=== PATIENT | male | born 2000 | race Caucasian/White ===

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

== ENCOUNTER → 2022-01-23 09:09 | Outpatient (BNVA) | payer MEDICAID, SELFPAY | PROVIDERS: Visit Provider Physician Assistant | DX: K58.9 Irritable bowel syndrome, unspecified (principal); R10.9 Unspecified abdominal pain; F32.A Depression, unspecified | CPT/HCPCS: 99212 ==

== ENCOUNTER 2022-03-22 15:50 | Emergency (ER) | payer MEDICAID, SELFPAY ==
--- NOTE | ~2022-03-22 | US_ITS ---
EXAMINATION: US SCROTUM CLINICAL INFORMATION: Left testicular pain. COMPARISON: None TECHNIQUE: A sonogram of the scrotum was performed assessing dawson-scale appearance and color Doppler flow. Spectral Doppler analysis of the arterial and venous flow were performed in the testes bilaterally. FINDINGS: RIGHT: Right testicle measures 4.2 x 2.3 x 2.1 cm, volume 10.4 mL. No focal testicular parenchymal lesions are visualized. Spectral Doppler analysis of the arterial and venous flow is in the right testis. Right epididymal head is normal in size. No right hydrocele or varicocele is seen. Right epididymal Doppler flow is normal. LEFT: Left testicle measures 4.2 x 2.2 x 2.7 cm, volume 13.2 mL. No focal testicular parenchymal lesions are visualized. Spectral Doppler analysis of the arterial and venous flow is in the left testis. Left epididymal head is normal in size. No left hydrocele or varicocele is seen. Left epididymal Doppler flow is normal. US/US scrotum doppler IMPRESSION: 1. Normal testicular ultrasound. 2. No ultrasound evidence of testicular torsion.
--- NOTE | ~2022-03-22 | CT_ITS ---
EXAMINATION: CT ABDOMEN AND PELVIS WITHOUT CONTRAST CLINICAL INFORMATION: Flank pain COMPARISON: 09/14/2021 TECHNIQUE: Multidetector volumetric imaging was performed from the superior aspect of the liver through the pubic symphysis. Sagittal and coronal reformatted images were obtained on the technologist's workstation. This CT examination was performed using dose optimization techniques as appropriate, variously including the following: *Automated exposure control *Adjustment of mA and/or kV according to patient size (this includes techniques or standardized protocols for targeted exams where dose is matched to indication/reason for exam; i.e. extremities or head) *Use of iterative reconstruction technique DLP: 990 mGy-cm FINDINGS: LUNG BASES: Chronic change in the lingula. LIVER, GALLBLADDER, AND BILIARY TREE: The liver is normal in size, shape, and attenuation. No focal hepatic lesion or biliary ductal dilatation is present. The gallbladder is unremarkable with no evidence of radiopaque gallstones, gallbladder wall thickening, or obvious pericholecystic inflammatory changes. PANCREAS: Unremarkable. SPLEEN: Unremarkable. ADRENAL GLANDS: Unremarkable. KIDNEYS AND URETERS: The kidneys are normal in size, shape, and attenuation. No hydronephrosis, hydroureter, or calculi seen. No perinephric stranding. BLADDER: Unremarkable. GASTROINTESTINAL TRACT: The small and large bowel are unremarkable. The appendix is unremarkable. ABDOMINAL WALL: No significant hernia is appreciated. LYMPH NODES: Once again some mildly prominent mesenteric nodes. VASCULAR: Unremarkable. PELVIC VISCERA: Unremarkable. OSSEOUS STRUCTURES: Unremarkable. CT/CT abdomen pelvis wo IV con IMPRESSION: There is no acute finding here. No evidence of renal or ureteral stone or obstruction. The bowel pattern is nonobstructing. There is no free fluid. Once again some mildly prominent mesenteric nodes are seen but these are not changing from previous Fleischner guidelines were followed.
--- NOTE | ~2022-03-22 | US_ITS ---
EXAMINATION: US SCROTUM CLINICAL INFORMATION: Left testicular pain. COMPARISON: None TECHNIQUE: A sonogram of the scrotum was performed assessing dawson-scale appearance and color Doppler flow. Spectral Doppler analysis of the arterial and venous flow were performed in the testes bilaterally. FINDINGS: RIGHT: Right testicle measures 4.2 x 2.3 x 2.1 cm, volume 10.4 mL. No focal testicular parenchymal lesions are visualized. Spectral Doppler analysis of the arterial and venous flow is in the right testis. Right epididymal head is normal in size. No right hydrocele or varicocele is seen. Right epididymal Doppler flow is normal. LEFT: Left testicle measures 4.2 x 2.2 x 2.7 cm, volume 13.2 mL. No focal testicular parenchymal lesions are visualized. Spectral Doppler analysis of the arterial and venous flow is in the left testis. Left epididymal head is normal in size. No left hydrocele or varicocele is seen. Left epididymal Doppler flow is normal. US/US scrotum IMPRESSION: 1. Normal testicular ultrasound. 2. No ultrasound evidence of testicular torsion.
[2022-03-22 16:50] VITALS: BP 104/83; PULSE 72; RESP 18; TEMP 36.4; O2SAT 100; BMI 41.1
--- NOTE | 2022-03-22 17:09 | ED.MALEGU ---
HPI - Male Genitourinary General Chief complaint: Urogenital-Male Stated complaint: anxiety, testicular pain, abdominal pain Time Seen by Provider: 03/22/22 21:01 Related Data Home Medications Medication Instructions Recorded Confirmed clonidine HCl 0.1 mg tablet 0.1 - 0.2 mg PO BEDTIME 11/28/21 01/23/22 famotidine 40 mg tablet 40 mg PO BEDTIME 11/28/21 01/23/22 hydroxyzine pamoate 25 mg capsule 25 - 50 mg PO DAILY PRN 11/28/21 01/23/22 lamotrigine 25 mg tablet 25 mg PO BID 11/28/21 01/23/22 naproxen 250 mg tablet 0 mg PO 11/28/21 01/23/22 topiramate 50 mg tablet 50 mg PO BEDTIME migraine 11/28/21 01/23/22 trazodone 100 mg tablet 200 mg PO BEDTIME 11/28/21 01/23/22 fluticasone propionate 50 1 - 2 spray intranasal DAILY PRN 01/23/22 01/23/22 mcg/actuation nasal spray,suspension Previous Rx's Medication Instructions Recorded methylcellulose (laxative) 500 mg 500 mg PO BID #60 tabs 11/28/21 tablet (Citrucel) Allergies Allergy/AdvReac Type Severity Reaction Status Date / Time SEASONAL ALLERGIES Allergy Unknown RUNNY Uncoded 03/22/22 16:59 NOSE, ITCHY EYES PMFSH Past Medical History Medical History ADHD Insomnia Obesity Surgical History History of placement of ear tubes Hx of toe surgery Hx of wisdom tooth extraction Family History Family History Paternal Grandfather Diabetes HTN (hypertension) Mother Headache Social History Social History Household Members: Family Household Members Other:: Mother, Sisters, brothers, grandparent, and 3 dogs Alcohol intake: never Patient Tobacco Use Status: Never used Tobacco Advance Directives: No Advance Directives Information Provided: Yes Current occupational status: unemployed Physical Exam Vital Signs: Vital Signs: Last Vital Signs Temp 97.5 F 03/22/22 16:50 Pulse 72 03/22/22 16:50 Resp 18 03/22/22 16:50 BP 104/83 03/22/22 16:50 Pulse Ox 100 03/22/22 16:50 O2 Del Method 03/22/22 16:50 BMI result Body Mass Index 41.1 Course Course Course Narrative: TYRONE. Patient presented to the ED for left testicular pain. Patient states he is not sexually active. UA, CTNG, and ultrasound ordered [facility] - Male Genitourinary Lab Data Result diagrams: 03/22/22 21:38 03/22/22 21:38 Labs: Lab Results 03/22/22 03/22/22 03/22/22 Range/Units 17:10 17:59 21:38 WBC 6.9 (4.8-10.8) X10*3/uL RBC 4.87 (4.60-5.80) X10*6/uL Hgb 14.3 (14.0-18.0) g/dl Hct 43.0 (42.0-52.0) % MCV 88.3 (80.0-98.0) fL MCH 29.4 (27.0-33.0) pg MCHC 33.3 (31.0-36.0) g/dl RDW 13.0 (11.0-16.0) % Plt Count 346 (160-400) X10*3/uL MPV 9.8 (9.4-12.4) fL Immature Gran % (Auto) 0.1 (0.0-0.4) % Neut % (Auto) 54.4 (45-73) % Lymph % (Auto) 29.2 (20-40) % [place] % (Auto) 12.1 H (2-11) % Eos % (Auto) 3.3 (0-4) % Baso % (Auto) 0.9 (0-2) % Lymph # (Auto) 2.0 (1.2-4.9) X10*3/uL [place] # (Auto) 0.8 (0.1-1.2) X10*3/uL Eos # (Auto) 0.2 (0.0-0.4) X10*3/uL Baso # (Auto) 0.1 (0.0-0.2) X10*3/uL Abs Immat Gran (auto) 0.01 (0.00-0.03) X10*3/uL Absolute Neuts (auto) 3.8 (2.0-8.3) x10*3/uL Absolute Nucleated RBC 0.000 (0.0-0.012) X10*3/uL Nucleated RBC % (auto) 0.0 (0.0-0.2) /100WBC Sodium (135-145) mmol/L Potassium (3.3-5.1) mmol/L Chloride (96-108) mmol/L Carbon Dioxide (22-29) mmol/L Anion Gap (12-20) BUN (9-16) mg/dL Creatinine (0.5-1.4) mg/dL Estim Creat Clear Calc Estimated GFR Random Glucose (60-115) mg/dL Calcium (8.4-10.2) mg/dL Urine Color Dark Yellow Urine Appearance Clear Urine pH 5.0 (5.0-9.0) Ur Specific [place] >= 1.030 H (1.005-1.025) Urine Protein Trace (Neg-Trace) mg/dL Urine Glucose (UA) Negative (Negative) mg/dL Urine Ketones Trace (Negative) mg/dL Urine Blood Negative (Negative) Urine Nitrite Negative (Negative) Ur Leukocyte Esterase Negative (Negative) Chlam trachomat DNA PCR NOT DETECTED (Not Detect.) N.gonorrhoeae DNA (PCR) NOT DETECTED (Not Detect.) 03/22/22 Range/Units 21:38 WBC (4.8-10.8) X10*3/uL RBC (4.60-5.80) X10*6/uL Hgb (14.0-18.0) g/dl Hct (42.0-52.0) % MCV (80.0-98.0) fL MCH (27.0-33.0) pg MCHC (31.0-36.0) g/dl RDW (11.0-16.0) % Plt Count (160-400) X10*3/uL MPV (9.4-12.4) fL Immature Gran % (Auto) (0.0-0.4) % Neut % (Auto) (45-73) % Lymph % (Auto) (20-40) % [place] % (Auto) (2-11) % Eos % (Auto) (0-4) % Baso % (Auto) (0-2) % Lymph # (Auto) (1.2-4.9) X10*3/uL [place] # (Auto) (0.1-1.2) X10*3/uL Eos # (Auto) (0.0-0.4) X10*3/uL Baso # (Auto) (0.0-0.2) X10*3/uL Abs Immat Gran (auto) (0.00-0.03) X10*3/uL Absolute Neuts (auto) (2.0-8.3) x10*3/uL Absolute Nucleated RBC (0.0-0.012) X10*3/uL Nucleated RBC % (auto) (0.0-0.2) /100WBC Sodium 141 (135-145) mmol/L Potassium 4.1 (3.3-5.1) mmol/L Chloride 107 (96-108) mmol/L Carbon Dioxide 21 L (22-29) mmol/L Anion Gap 17 (12-20) BUN 15 (9-16) mg/dL Creatinine 1.15 (0.5-1.4) mg/dL Estim Creat Clear Calc 144.2 Estimated GFR > 60 Random Glucose 81 (60-115) mg/dL Calcium 9.9 (8.4-10.2) mg/dL Urine Color Urine Appearance Urine pH (5.0-9.0) Ur Specific [place] (1.005-1.025) Urine Protein (Neg-Trace) mg/dL Urine Glucose (UA) (Negative) mg/dL Urine Ketones (Negative) mg/dL Urine Blood (Negative) Urine Nitrite (Negative) Ur Leukocyte Esterase (Negative) Chlam trachomat DNA PCR (Not Detect.) N.gonorrhoeae DNA (PCR) (Not Detect.) Discharge Plan Discharge Clinical Impression: Pain in testicle Patient Disposition: Home, Self-Care Instructions: Testicle Pain (ED) Additional Instructions: Your ultrasound shows no signs of torsion or twisting of the testicle. Your urine is negative for infection. Your CT scan shows no signs of kidney stone Follow-up with urology for any persistent symptoms Prescriptions: No Action fluticasone propionate 50 mcg/actuation spray,suspension 1 - 2 spray intranasal DAILY PRN topiramate 50 mg tablet 50 mg PO BEDTIME trazodone 100 mg tablet 200 mg PO BEDTIME naproxen 250 mg tablet 0 mg PO famotidine 40 mg tablet 40 mg PO BEDTIME clonidine HCl 0.1 mg tablet 0.1 - 0.2 mg PO BEDTIME lamotrigine 25 mg tablet 25 mg PO BID hydroxyzine pamoate 25 mg capsule 25 - 50 mg PO DAILY PRN Citrucel 500 mg tablet 500 mg PO BID Qty: 60 5RF Referrals: Edgardo Wang MD [Physician] - 5 days (For persistent symptoms) Interventions: ED Discharge Assessment Last Done: 03/22/22 22:53 Discharge Date/Time: 03/22/22 22:54
[2022-03-22 17:23] LABS: Appearance Urine Clear; Color Urine Dark Yellow; Glucose Urine UA Negative (Negative); Leukocyte Esterase Urine Negative (Negative); Nitrite Urine Negative (Negative); Specific Gravity - Urine >= 1.030 (1.005-1.025); Urine Blood Negative (Negative); Urine Ketones Trace mg/dL (Negative); Urine Protein Trace mg/dL (Neg-Trace)
--- NOTE | 2022-03-22 21:10 | ED_ITS ---
HPI - Male Genitourinary General Chief complaint: Urogenital-Male Stated complaint: anxiety, testicular pain, abdominal pain Time Seen by Provider: 03/22/22 21:01 Source: patient Mode of arrival: ambulatory Limitations: no limitations History of Present Illness HPI Narrative: 21-year-old male with history of anxiety, migraines presents with testicular pain right-sided with radiation to the back since yesterday with some foul- smelling urine. No fevers, chills, abdominal pain, vomiting. No penile discharge, rashes or lesions. Patient reports he is not sexually active and never has been. Related Data Home Medications Medication Instructions Recorded Confirmed clonidine HCl 0.1 mg tablet 0.1 - 0.2 mg PO BEDTIME 11/28/21 01/23/22 famotidine 40 mg tablet 40 mg PO BEDTIME 11/28/21 01/23/22 hydroxyzine pamoate 25 mg capsule 25 - 50 mg PO DAILY PRN 11/28/21 01/23/22 lamotrigine 25 mg tablet 25 mg PO BID 11/28/21 01/23/22 naproxen 250 mg tablet 0 mg PO 11/28/21 01/23/22 topiramate 50 mg tablet 50 mg PO BEDTIME migraine 11/28/21 01/23/22 trazodone 100 mg tablet 200 mg PO BEDTIME 11/28/21 01/23/22 fluticasone propionate 50 1 - 2 spray intranasal DAILY PRN 01/23/22 01/23/22 mcg/actuation nasal spray,suspension Previous Rx's Medication Instructions Recorded methylcellulose (laxative) 500 mg 500 mg PO BID #60 tabs 11/28/21 tablet (Citrucel) Allergies Allergy/AdvReac Type Severity Reaction Status Date / Time SEASONAL ALLERGIES Allergy Unknown RUNNY Uncoded 03/22/22 16:59 NOSE, ITCHY EYES Review of Systems Review of Systems: Yes all other systems are reviewed and are negative Constitutional: Constitutional: Reports no additional constitutional complaints, Denies body ache(s), Denies chills, Denies fever(s), Denies headache(s) and Denies weakness Eyes: Eyes: Reports no additional eye complaints and Denies change in vision ENT: Reports system reviewed and no additional complaints, except as documented, Denies dizziness, Denies headache(s), Denies nasal congestion, Denies nasal discharge and Denies neck pain Cardiovascular: Cardiovascular: Reports no additional cardiovascular complaints, Denies chest pain, Denies leg edema and Denies dyspnea Respiratory: Respiratory: Reports no additional respiratory complaints, Denies cough and Denies dyspnea Gastrointestinal: Gastrointestinal: Reports no additional gastrointestinal complaints, Denies abdominal pain, Denies diarrhea, Denies nausea and Denies vomiting Genitourinary: Genitourinary: Denies dysuria, Denies flank pain, Denies penile discharge, Reports testicular pain, Denies urinary frequency, Denies urinary hesitancy, Denies urinary incontinence and Denies urinary urgency Musculoskeletal: Musculoskeletal: Reports no additional musculoskeletal complaints, Reports back pain, Denies arthralgias, Denies joint swelling, Denies neck pain, Denies numbness and Denies tingling Integumentary/Breasts: Skin/Breast: Reports system reviewed and no additional complaints, except as docu and Denies rash Neurologic: Reports system reviewed and no additional complaints, except as documented, Denies Abnormal speech present, Denies dizziness, Denies headache(s), Denies numbness, Denies tingling and Denies weakness PMFSH Past Medical History Attestation statement: The following information was validated with the patient. Source: old records reviewed and nursing notes reviewed Medical History ADHD Insomnia Obesity Surgical History History of placement of ear tubes Hx of toe surgery Hx of wisdom tooth extraction Family History Family History Paternal Grandfather Diabetes HTN (hypertension) Mother Headache Social History Social History Household Members: Family Household Members Other:: Mother, Sisters, brothers, grandparent, and 3 dogs Alcohol intake: never Patient Tobacco Use Status: Never used Tobacco Advance Directives: No Advance Directives Information Provided: Yes Current occupational status: unemployed Physical Exam Vital Signs: Vital Signs: Last Vital Signs Temp 97.5 F 03/22/22 16:50 Pulse 72 03/22/22 16:50 Resp 18 03/22/22 16:50 BP 104/83 03/22/22 16:50 Pulse Ox 100 03/22/22 16:50 O2 Del Method 03/22/22 16:50 BMI result Body Mass Index 41.1 Const: General: cooperative, healthy appearing, comfortable and no acute dist ress Orientation/consciousness: patient oriented x3 Limitations: no limitations HEENT: Head: Yes normal to inspection Ears: hearing grossly normal bilaterally General nose exam: Normal external nose present Face and sinus: Yes normal facial exam Mouth: Normal oral and palatal mucosa present Throat: Yes posterior oropharynx normal Eyes: General: appearance normal, both eyes and all related structures Pupils: Equal, round and reactive pupils present Neck: Neck: Yes normal visual inspection Chest: Chest palpation & inspection: normal inspection of the chest Resp: Effort & Inspection: normal respiratory effort Auscultation: clear to auscultation bilaterally Cardio: Rate: regular rate Rhythm: regular rhythm Peripheral pulses: Peripheral pulses 2+ throughout GI: Inspection: Yes normal to inspection Palpation (GI): Soft to palpation and nontender Auscultation: normal bowel sounds : Other: Unable to elicit any tenderness on exam. General: Yes Bimanual renal exam normal bilaterally Penis: normal penis and circumcised Meatus: meatus normal Scrotum: scrotum normal Testes: Testes normal Back/Spine/Pelvis: Thoracic/Lumbar Spine: thoracic and lumbar spine normal to inspection Skin: General skin exam: no rashes or lesions noted Neuro: General: patient oriented x3, no focal motor deficits and normal sensation to monofilament Cranial nerves: Yes Equal, round and reactive pupils present Cognition (Neuro): normal cognition Speech: No Abnormal speech present Gait exam (Neuro): Normal gait present Motor exam (neuro): 5/5 motor strength present throughout Extrem: General: Yes normal to inspection Course Course Course Narrative: Ultrasound is negative for torsion or epididymitis. UA shows no signs of infection. Labs are unremarkable. CT A/P negative for renal colic or pyelo. Low concern for gonorrhea and chlamydia as patient is not sexually active Plan for discharge home. Reviewed worrisome signs and symptoms of when to return to the emergency room. Comfortable discharge home. MDM - Male Genitourinary MDM Narrative Medical decision making narrative: 21-year-old male here with back pain with radiation to the testicle since yesterday with some foul-smelling urine. No penile discharge. No fevers, chills or vomiting. Patient initially reported left testicular pain at triage. When I did see him he reports right-sided. He did already have bilateral testicular ultrasounds which were negative for epididymitis or torsion. UA is negative for signs of infection. Patient was tested for gonorrhea and chlamydia but tells me he is not sexually active and never has been so low concern for STI. Consider renal colic so will check CT abdomen pelvis to rule out and labs. Could consider intermittent torsion patient reports constant pain since yesterday with no colicky nature so less likely. Medical Records Attestation: I reviewed the patient's medical records. Lab Data Attestation: I reviewed the patient's lab results. Result diagrams: 03/22/22 21:38 03/22/22 21:38 Labs: Lab Results 03/22/22 03/22/22 03/22/22 Range/Units 17:10 21:38 21:38 WBC 6.9 (4.8-10.8) X10*3/uL RBC 4.87 (4.60-5.80) X10*6/uL Hgb 14.3 (14.0-18.0) g/dl Hct 43.0 (42.0-52.0) % MCV 88.3 (80.0-98.0) fL MCH 29.4 (27.0-33.0) pg MCHC 33.3 (31.0-36.0) g/dl RDW 13.0 (11.0-16.0) % Plt Count 346 (160-400) X10*3/uL MPV 9.8 (9.4-12.4) fL Immature Gran % (Auto) 0.1 (0.0-0.4) % Neut % (Auto) 54.4 (45-73) % Lymph % (Auto) 29.2 (20-40) % [place] % (Auto) 12.1 H (2-11) % Eos % (Auto) 3.3 (0-4) % Baso % (Auto) 0.9 (0-2) % Lymph # (Auto) 2.0 (1.2-4.9) X10*3/uL [place] # (Auto) 0.8 (0.1-1.2) X10*3/uL Eos # (Auto) 0.2 (0.0-0.4) X10*3/uL Baso # (Auto) 0.1 (0.0-0.2) X10*3/uL Abs Immat Gran (auto) 0.01 (0.00-0.03) X10*3/uL Absolute Neuts (auto) 3.8 (2.0-8.3) x10*3/uL Absolute Nucleated RBC 0.000 (0.0-0.012) X10*3/uL Nucleated RBC % (auto) 0.0 (0.0-0.2) /100WBC Sodium 141 (135-145) mmol/L Potassium 4.1 (3.3-5.1) mmol/L Chloride 107 (96-108) mmol/L Carbon Dioxide 21 L (22-29) mmol/L Anion Gap 17 (12-20) BUN 15 (9-16) mg/dL Creatinine 1.15 (0.5-1.4) mg/dL Estim Creat Clear Calc 144.2 Estimated GFR > 60 Random Glucose 81 (60-115) mg/dL Calcium 9.9 (8.4-10.2) mg/dL Urine Color Dark Yellow Urine Appearance Clear Urine pH 5.0 (5.0-9.0) Ur Specific [place] >= 1.030 H (1.005-1.025) Urine Protein Trace (Neg-Trace) mg/dL Urine Glucose (UA) Negative (Negative) mg/dL Urine Ketones Trace (Negative) mg/dL Urine Blood Negative (Negative) Urine Nitrite Negative (Negative) Ur Leukocyte Esterase Negative (Negative) Imaging Data CT scan - abdomen: Attestation: I personally reviewed and interpreted this imaging study as follows: Radiologist's impression: FINDINGS: LUNG BASES: Chronic change in the lingula.? LIVER, GALLBLADDER, AND BILIARY TREE: The liver is normal in size, shape, and attenuation. No focal hepatic lesion or biliary ductal dilatation is present. The gallbladder is unremarkable with no evidence of radiopaque gallstones, gallbladder wall thickening, or obvious pericholecystic inflammatory changes.? PANCREAS: Unremarkable.? SPLEEN: Unremarkable.? ADRENAL GLANDS: Unremarkable.? KIDNEYS AND URETERS: The kidneys are normal in size, shape, and attenuation. No hydronephrosis, hydroureter, or calculi seen. No perinephric stranding. ? BLADDER: Unremarkable.? GASTROINTESTINAL TRACT: The small and large bowel are unremarkable. The appendix is unremarkable.? ABDOMINAL WALL: No significant hernia is appreciated.? LYMPH NODES: Once again some mildly prominent mesenteric nodes. VASCULAR: Unremarkable. PELVIC VISCERA: Unremarkable.? OSSEOUS STRUCTURES: Unremarkable.? CT/CT abdomen pelvis wo IV con IMPRESSION: There is no acute finding here. No evidence of renal or ureteral stone or obstruction. ? The bowel pattern is nonobstructing. There is no free fluid. ? Once again some mildly prominent mesenteric nodes are seen but these are not changing from previous? ? Fleischner guidelines were followed. scrotum US. : Attestation: I personally reviewed and interpreted this imaging study as follows: Radiologist's impression: [address] [address] Ultrasound Report Signed Patient: Terence Soto MR#: [id number] : 2000 Acct:[id number] Age/Sex: 21 / M ADM Date: 03/22/22 Loc: .ED Attending Dr: Ordering Physician: Jeffery Tomlin Date of Service: 03/22/22 Procedure(s): US scrotum doppler Accession Number(s): [id number] cc: Jeffery Tomlin~ EXAMINATION: US SCROTUM CLINICAL INFORMATION: Left testicular pain. COMPARISON: None TECHNIQUE: A sonogram of the scrotum was performed assessing dawson-scale appearance and color Doppler flow. Spectral Doppler analysis of the arterial and venous flow were performed in the testes bilaterally. FINDINGS: RIGHT: Right testicle measures 4.2 x 2.3 x 2.1 cm, volume 10.4 mL. No focal testicular parenchymal lesions are visualized. Spectral Doppler analysis of the arterial and venous flow is in the right testis. Right epididymal head is normal in size. No right hydrocele or varicocele is seen. Right epididymal Doppler flow is normal. LEFT: Left testicle measures 4.2 x 2.2 x 2.7 cm, volume 13.2 mL. No focal testicular parenchymal lesions are visualized. Spectral Doppler analysis of the arterial and venous flow is in the left testis. Left epididymal head is normal in size. No left hydrocele or varicocele is seen. Left epididymal Doppler flow is normal. US/US scrotum doppler IMPRESSION: 1.? Normal testicular ultrasound. 2.? No ultrasound evidence of testicular torsion. ? Discharge Plan Discharge Clinical Impression: Pain in testicle Patient Disposition: Home, Self-Care Instructions: Testicle Pain (ED) Additional Instructions: Your ultrasound shows no signs of torsion or twisting of the testicle. Your urine is negative for infection. Your CT scan shows no signs of kidney stone Follow-up with urology for any persistent symptoms Prescriptions: No Action fluticasone propionate 50 mcg/actuation spray,suspension 1 - 2 spray intranasal DAILY PRN topiramate 50 mg tablet 50 mg PO BEDTIME trazodone 100 mg tablet 200 mg PO BEDTIME naproxen 250 mg tablet 0 mg PO famotidine 40 mg tablet 40 mg PO BEDTIME clonidine HCl 0.1 mg tablet 0.1 - 0.2 mg PO BEDTIME lamotrigine 25 mg tablet 25 mg PO BID hydroxyzine pamoate 25 mg capsule 25 - 50 mg PO DAILY PRN Citrucel 500 mg tablet 500 mg PO BID Qty: 60 5RF Referrals: Edgardo Wang MD [Physician] - 5 days (For persistent symptoms) Interventions: ED Discharge Assessment Last Done: 03/22/22 22:53 Discharge Date/Time: 03/22/22 22:54
[2022-03-22 21:42] LABS: MANUAL DIFF FLAG NO
[2022-03-22 21:48] LABS: Basophils Absolute Auto 0.1 X10*3/uL (0.0-0.2); Basophils Percent Auto 0.9 % (0-2); Eosinophils Absolute Auto 0.2 X10*3/uL (0.0-0.4); Eosinophils Percent Auto 3.3 % (0-4); Hemoglobin 14.3 g/dl (14.0-18.0); Imm Gran Abs Auto 0.01 X10*3/uL (0.00-0.03); Imm Gran Pct Auto 0.1 % (0.0-0.4); Lymphocytes Percent Auto 29.2 % (20-40); Mean Corpuscular HGB Conc 33.3 g/dl (31.0-36.0); Mean Corpuscular Hemoglobin 29.4 pg (27.0-33.0); Mean Corpuscular Volume 88.3 fL (80.0-98.0); Mean Platelet Volume 9.8 fL (9.4-12.4); Monocytes Absolute Auto 0.8 X10*3/uL (0.1-1.2); Monocytes Percent Auto 12.1 % (2-11); Neutrophils Absolute Auto 3.8 x10*3/uL (2.0-8.3); Neutrophils Percent Auto 54.4 % (45-73); Platelet Count 346 X10*3/uL (160-400); Red Blood Count 4.87 X10*6/uL (4.60-5.80); White Blood Count 6.9 X10*3/uL (4.8-10.8)
[2022-03-22 22:07] LABS: Anion Gap 17 (12-20); Blood Urea Nitrogen 15 mg/dL (9-16); Calcium 9.9 mg/dL (8.4-10.2); Carbon Dioxide 21 mmol/L (22-29); Chloride 107 mmol/L (96-108); Creatinine Clr Calc Pharmacy 144.2; Estimated Glomerular Filt Rate > 60; Glucose Random 81 mg/dL (60-115); Potassium 4.1 mmol/L (3.3-5.1); Sodium 141 mmol/L (135-145)
[2022-03-23 09:18] LABS: CT PCR NOT DETECTED (Not Detect.); NG PCR NOT DETECTED (Not Detect.)
== END 2022-03-22 22:54 | disposition home or self-care (01) ==
PROVIDERS: Nurse Practitioner Family; Physician Assistant; Emergency Provider Emergency Medicine; PCP Family Medicine
DX: N50.812 Left testicular pain (principal); G43.909 Migraine, unspecified, not intractable, without status migrainosus; F41.1 Generalized anxiety disorder; F43.0 Acute stress reaction; Z79.899 Other long term (current) drug therapy
CPT/HCPCS: 36415; 74176; 76870; 80048; 81003; 85025; 87491; 87591; 93975; 99283; 99284

== ENCOUNTER → 2022-05-26 09:40 | Outpatient (BNVA) | payer MEDICAID, SELFPAY | PROVIDERS: PCP Family Medicine; Visit Provider Nurse Practitioner Family | DX: G43.709 Chronic migraine without aura, not intractable, without status migrainosus (principal); R10.9 Unspecified abdominal pain; R41.3 Other amnesia; G47.9 Sleep disorder, unspecified | CPT/HCPCS: 99202 ==

== ENCOUNTER → 2022-06-13 14:43 | Outpatient (REF) | payer MEDICAID, SELFPAY | LOC: HO.SL 14:43 | PROVIDERS: PCP Family Medicine; Visit Provider Nurse Practitioner Family | DX: G47.19 Other hypersomnia (principal); G47.9 Sleep disorder, unspecified; R06.83 Snoring; E66.01 Morbid (severe) obesity due to excess calories | CPT/HCPCS: 95806 ==

== ENCOUNTER → 2022-08-07 19:30 | Outpatient (REF) | payer MEDICAID, SELFPAY | LOC: HO.SL 19:30 | PROVIDERS: PCP Family Medicine; Visit Provider Nurse Practitioner Family | DX: G47.9 Sleep disorder, unspecified (principal); G47.19 Other hypersomnia; E66.01 Morbid (severe) obesity due to excess calories; R06.83 Snoring | CPT/HCPCS: 95810 ==

== ENCOUNTER 2023-01-11 08:13 | Emergency (ER) | payer MEDICAID, SELFPAY ==
[2023-01-11 08:20] VITALS: BP 123/75; PULSE 78; RESP 12; TEMP 36.8; O2SAT 98; BMI 41.0
--- NOTE | 2023-01-11 08:47 | ED.GENADULT ---
HPI - General Adult General Chief complaint: General Medical Stated complaint: ear infection/ abd pain Time Seen by Provider: 01/11/23 08:34 Source: patient Mode of arrival: ambulatory Limitations: no limitations History of Present Illness HPI narrative: 22-year-old male presents with left greater than right ear pain and nasal congestion. Symptoms started 4 days ago. He has had no fevers but has had chills. No cough, runny nose, sore throat. He has had no drainage from his ears. There is no clear relieving or exacerbating features. He denies any sinus pressure or pain. Patient's are moderate nature. There is no prior treatment. He denies a significant history of similar symptoms. Related Data Home Medications Medication Instructions Recorded Confirmed fluticasone propionate 50 1 - 2 spray intranasal DAILY PRN 01/23/22 05/26/22 mcg/actuation nasal spray,suspension spmzkai-mzxezhymgggaj-lthixpbt 250 2 tab PO Q8H PRN headache 05/26/22 05/26/22 mg-250 mg-65 mg tablet (Migraine Relief) methylcellulose (laxative) 500 mg 500 mg PO BID PRN 05/26/22 05/26/22 tablet (Citrucel) quetiapine 25 mg tablet 12.5 mg PO BID 05/26/22 05/26/22 trazodone 100 mg tablet 100 mg PO BEDTIME 05/26/22 05/26/22 Previous Rx's Medication Instructions Recorded gabapentin 100 mg capsule 100 - 300 mg PO BEDTIME 30 days 05/26/22 #90 caps ibuprofen 600 mg tablet 600 mg PO BID PRN pain 30 days #60 05/26/22 tabs magnesium oxide 400 mg (241.3 mg 400 mg PO BEDTIME 30 days #30 tabs 05/26/22 magnesium) tablet naratriptan 2.5 mg tablet 1.25 - 2.5 mg PO .COMPLEX PRN 05/26/22 migraine headache 30 days #12 tabs riboflavin (vitamin B2) 400 mg 400 mg PO DAILY 30 days #30 tabs 05/26/22 tablet fluticasone furoate 27.5 1 spray intranasal DAILY #5.9 mL 01/11/23 mcg/actuation nasal spray,suspension evwggbck-drdvci-JT-thonzonm 3.3 1 appl otic (ears) QID #10 mL 01/11/23 mg-3 mg-10 mg-0.5 mg/mL ear drops,susp (Cortisporin-TC) Allergies Allergy/AdvReac Type Severity Reaction Status Date / Time SEASONAL ALLERGIES Allergy Unknown RUNNY Uncoded 05/26/22 10:17 NOSE, ITCHY EYES Review of Systems Review of Systems: CONSTITUTIONAL: Denies weight loss, fever and chills. HEENT: Denies changes in vision and hearing. RESPIRATORY: Denies SOB and cough. CV: Denies palpitations no CP. GI: Denies abdominal pain, nausea, vomiting and diarrhea. : Denies dysuria and urinary frequency. MSK: Denies myalgia and joint pain. SKIN: Denies rash and pruritus. NEUROLOGICAL: Denies headache and syncope. PSYCHIATRIC: Denies recent changes in mood. Denies anxiety and depression. All other ROS are negative unless in HPI PMFSH Past Medical History Medical History ADHD Insomnia Obesity Surgical History History of placement of ear tubes Hx of toe surgery Hx of wisdom tooth extraction Family History Family History Paternal Grandfather Diabetes Hypertension Mother Headache Seizures Migraine-cluster headache syndrome Myocardial infarction Hypertension Social History Social History Household Members: Family Household Members Other:: Mother, Sisters, brothers, grandparent, and 3 dogs Alcohol intake: never Patient Tobacco Use Status: Never used Tobacco Advance Directives: No Current occupational status: unemployed Physical Exam ED Vital Signs: Vital Signs - 24 hr 01/11/23 08:20 Temperature 98.2 F Pulse Rate 78 Respiratory Rate 12 Blood Pressure 123/75 Pulse Oximetry 98 Oxygen Delivery Method Room Air BMI result Body Mass Index 41.0 GEN: Well developed, no acute distress, alert, oriented HEENT: Normocephalic, atraumatic, normal external ears, nose appears normal , tympanic clear, normal cone of light reflex, no drainage, minimal amount of cerumen Eyes: Normal to appearance Neck: Supple, no lymphadenopathy Respiratory: Talks in complete sentences, no respiratory distress Extremities: No clubbing cyanosis or edema Neurologic: No focal neurologic deficits, cranial nerves 2-12 intact, gait normal Skin: No rash Medical Decision Making Medical Decision Making MDM Narrative: patient presents with bilateral otalgia. There is slight narrowing of the right tympanic membrane, left is slightly erythematous but no significant narrowing. Tympanic membranes are clear without any evidence of acute otitis media. Patient also complains of congestion. There is no indication that this represents an acute sinus infection. Certainly this is only been going on for few days does not warrant antibiotic treatment at this point. I will start the patient on topical antibiotics firs otitis externa and nasal steroids for some congestion. He can follow up with his primary care provider early next week for re-evaluation. Differential Diagnosis Differential Diagnoses: The differential diagnosis associated with the presentation includes ( Otitis media, otitis externa, seasonal allergies) otalgia, congestion Prescription Management I considered prescription management with: Antibiotic Discharge Plan Discharge Clinical Impression: Acute otalgia, Nasal congestion Patient Disposition: Home, Self-Care Instructions: Earache (ED), How to Use Nasal [place] (ED) Prescriptions: New fluticasone furoate 27.5 mcg/actuation spray,suspension 1 spray intranasal DAILY Qty: 5.9 0RF Rx Instructions: into each nostril Cortisporin-TC 3.3-3-10-0.5 mg/mL drops,suspension 1 appl otic (ears) QID Qty: 10 0RF Rx Instructions: 7 days No Action fluticasone propionate 50 mcg/actuation spray,suspension 1 - 2 spray intranasal DAILY PRN trazodone 100 mg tablet 100 mg PO BEDTIME Citrucel 500 mg tablet 500 mg PO BID PRN quetiapine 25 mg tablet 12.5 mg PO BID Migraine Relief 250-250-65 mg tablet 2 tab PO Q8H PRN (Reason: headache) riboflavin (vitamin B2) 400 mg tablet 400 mg PO DAILY 30 Days Qty: 30 6RF magnesium oxide 400 mg (241.3 mg magnesium) tablet 400 mg PO BEDTIME 30 Days Qty: 30 6RF Rx Instructions: may hold for loose stools naratriptan 2.5 mg tablet 1.25 - 2.5 mg PO .COMPLEX PRN (Reason: migraine headache) 30 Days Qty: 12 3RF Rx Instructions: 1.25 - 2.5 mg orally, msy repeat in 2 hrs, may take w/ Ibuprofen, prn ibuprofen 600 mg tablet 600 mg PO BID PRN (Reason: pain) 30 Days Qty: 60 3RF gabapentin 100 mg capsule 100 - 300 mg PO BEDTIME 30 Days Qty: 90 3RF Referrals: Marley Tomlinson MD [Primary Care Provider] - 1 week
--- NOTE | 2023-01-11 09:00 | PC.NURSE ---
Discharge plan reviewed with patient who verbalized understanding
== END 2023-01-11 08:59 | disposition home or self-care (01) ==
PROVIDERS: Emergency Provider Emergency Medicine; PCP Family Medicine
DX: H92.03 Otalgia, bilateral (principal); R09.81 Nasal congestion; F90.9 Attention-deficit hyperactivity disorder, unspecified type; Z79.82 Long term (current) use of aspirin; Z79.899 Other long term (current) drug therapy
CPT/HCPCS: 99282; 99283

== ENCOUNTER 2023-01-19 16:31 | Outpatient (REF) | payer MEDICAID, SELFPAY | END 2023-01-19 16:32 | disposition home or self-care (01) | LOC: HO.CHCLNP 16:31 | PROVIDERS: Visit Provider Family Medicine | DX: R30.0 Dysuria (principal) | CPT/HCPCS: 87086 ==

== ENCOUNTER 2023-09-10 10:49 | Outpatient (REF) | payer MEDICAID, SELFPAY ==
--- NOTE | ~2023-09-10 | XR_ITS ---
EXAMINATION: XR WRIST, RIGHT CLINICAL INFORMATION: Lateral increased pain COMPARISON: None available. TECHNIQUE: PA, lateral, and oblique views of the right wrist. FINDINGS: 2 views of right wrist revealed no evidence of fracture or osseous destruction. There is ulna minus variance. Radiocarpal joint is maintained. Osseous structures of carpal row are normal. XR/XR wrist RT 2V IMPRESSION: Ulna minus variance
[2023-09-10 11:08] LABS: MANUAL DIFF FLAG NO
[2023-09-10 12:25] LABS: Basophils Absolute Auto 0.1 X10*3/uL (0.0-0.2); Basophils Percent Auto 0.9 % (0-2); Eosinophils Absolute Auto 0.2 X10*3/uL (0.0-0.4); Eosinophils Percent Auto 4.1 % (0-4); Hematocrit 44.5 % (42.0-52.0); Imm Gran Abs Auto 0.02 X10*3/uL (0.00-0.03); Imm Gran Pct Auto 0.3 % (0.0-0.4); Lymphocytes Absolute Auto 1.6 X10*3/uL (1.2-4.9); Lymphocytes Percent Auto 26.7 % (20-40); Mean Corpuscular HGB Conc 33.7 g/dl (31.0-36.0); Mean Platelet Volume 10.1 fL (9.4-12.4); Monocytes Absolute Auto 0.6 X10*3/uL (0.1-1.2); Monocytes Percent Auto 10.9 % (2-11); Neutrophils Absolute Auto 3.4 x10*3/uL (2.0-8.3); Neutrophils Percent Auto 57.1 % (45-73); Platelet Count 340 X10*3/uL (160-400); Red Cell Distribution Width 13.2 % (11.0-16.0); White Blood Count 5.9 X10*3/uL (4.8-10.8)
[2023-09-10 13:08] LABS: Alanine Aminotransferase 45 U/L (0-40); Albumin Level 4.6 g/dL (3.5-5.0); Alkaline Phosphatase 57 U/L (39-117); Anion Gap 8 (12-20); Aspartate Amino Transferase 24 U/L (5-37); Bilirubin Total 0.6 mg/dL (0.0-1.0); Blood Urea Nitrogen 13 mg/dL (9-16); Carbon Dioxide 31 mmol/L (22-29); Chloride 104 mmol/L (96-108); Cholesterol 181 mg/dL (<200); Estimated Glomerular Filt Rate > 60; Glucose Random 90 mg/dL (60-115); HDL Cholesterol 42 mg/dL (>40); LDL Cholesterol Calculated 119 mg/dL (<100); Potassium 4.2 mmol/L (3.3-5.1); Sodium 139 mmol/L (135-145); Total Protein 8.1 g/dL (6.5-8.0); Triglycerides 101 mg/dL (<150)
[2023-09-10 13:29] LABS: HIV AB/AG Nonreactive (Nonreactive); HIV Num 1 0.09 S/CO (0.00-0.99); TSH reflex Free T4 1.59 uIU/mL (0.32-4.0)
[2023-09-10 13:40] LABS: ~HepC Num1 0.09 S/CO (0.00-0.79); ~Hepatitis C Antibody Nonreactive (Nonreactive)
== END 2023-09-10 10:50 | disposition home or self-care (01) ==
LOC: HO.XRAY 10:49
PROVIDERS: PCP Family Medicine; Visit Provider Family Medicine
DX: Z00.00 Encounter for general adult medical examination without abnormal findings (principal); Z11.4 Encounter for screening for human immunodeficiency virus [HIV]; E66.01 Morbid (severe) obesity due to excess calories; Z68.41 Body mass index [BMI] 40.0-44.9, adult; M65.4 Radial styloid tenosynovitis [de Quervain]
CPT/HCPCS: 36415; 73100; 80053; 80061; 84443; 85025; 86803; 87389

== ENCOUNTER 2023-12-06 13:05 | Outpatient (REF) | payer MEDICAID, SELFPAY ==
[2023-12-06 14:07] LABS: MANUAL DIFF FLAG NO
[2023-12-06 14:09] LABS: Basophils Absolute Auto 0.1 X10*3/uL (0.0-0.2); Basophils Percent Auto 0.8 % (0-2); Eosinophils Absolute Auto 0.3 X10*3/uL (0.0-0.4); Eosinophils Percent Auto 3.9 % (0-4); Hematocrit 44.4 % (42.0-52.0); Hemoglobin 14.7 g/dl (14.0-18.0); Imm Gran Abs Auto 0.03 X10*3/uL (0.00-0.03); Imm Gran Pct Auto 0.4 % (0.0-0.4); Lymphocytes Absolute Auto 1.9 X10*3/uL (1.2-4.9); Lymphocytes Percent Auto 26.2 % (20-40); Mean Corpuscular HGB Conc 33.1 g/dl (31.0-36.0); Mean Corpuscular Hemoglobin 29.5 pg (27.0-33.0); Mean Platelet Volume 10.2 fL (9.4-12.4); Monocytes Absolute Auto 0.8 X10*3/uL (0.1-1.2); Monocytes Percent Auto 11.7 % (2-11); Platelet Count 330 X10*3/uL (160-400); Red Blood Count 4.99 X10*6/uL (4.60-5.80); Red Cell Distribution Width 13.1 % (11.0-16.0); White Blood Count 7.1 X10*3/uL (4.8-10.8)
[2023-12-06 14:11] LABS: Appearance Urine Clear; Color Urine Yellow; Glucose Urine UA Negative (Negative); Leukocyte Esterase Urine Negative (Negative); Nitrite Urine Negative (Negative); PH 5.5 (5.0-9.0); Specific Gravity - Urine 1.025 (1.005-1.025); Urine Blood Negative (Negative); Urine Ketones Negative (Negative); Urine Protein Trace mg/dL (Neg-Trace)
[2023-12-06 14:16] LABS: Bacteria Urine None Seen (None Seen); Hyaline Casts Urine 0-2 /LPF (0-2); RBC Urine 0-2 /HPF (0-2); Squamous Epithelial Cell Urine 0-2 /HPF (0-2); WBC Urine 0-5 /HPF (0-5)
[2023-12-06 14:25] LABS: Alanine Aminotransferase 128 U/L (0-40); Albumin Level 4.5 g/dL (3.5-5.0); Alkaline Phosphatase 66 U/L (39-117); Anion Gap 13 (12-20); Aspartate Amino Transferase 41 U/L (5-37); Bilirubin Total 0.5 mg/dL (0.0-1.0); Blood Urea Nitrogen 15 mg/dL (9-16); Carbon Dioxide 26 mmol/L (22-29); Chloride 105 mmol/L (96-108); Estimated Glomerular Filt Rate > 60; Glucose Random 84 mg/dL (60-115); Potassium 4.2 mmol/L (3.3-5.1); Sodium 140 mmol/L (135-145); Total Protein 8.2 g/dL (6.5-8.0)
== END 2023-12-06 13:06 | disposition home or self-care (01) ==
LOC: HO.CHCLDS 13:05
PROVIDERS: Visit Provider Internal Medicine
DX: R11.0 Nausea (principal); R10.30 Lower abdominal pain, unspecified
CPT/HCPCS: 36415; 80053; 81001; 85025; 87338

== ENCOUNTER 2023-12-14 10:40 | Outpatient (REF) | payer MEDICAID, SELFPAY ==
[2023-12-14 13:53] LABS: MANUAL DIFF FLAG NO
[2023-12-14 14:03] LABS: Basophils Absolute Auto 0.1 X10*3/uL (0.0-0.2); Basophils Percent Auto 1.1 % (0-2); Eosinophils Absolute Auto 0.2 X10*3/uL (0.0-0.4); Eosinophils Percent Auto 4.6 % (0-4); Hematocrit 43.9 % (42.0-52.0); Hemoglobin 14.4 g/dl (14.0-18.0); Imm Gran Abs Auto 0.01 X10*3/uL (0.00-0.03); Imm Gran Pct Auto 0.2 % (0.0-0.4); Lymphocytes Absolute Auto 1.6 X10*3/uL (1.2-4.9); Mean Corpuscular HGB Conc 32.8 g/dl (31.0-36.0); Mean Corpuscular Hemoglobin 29.7 pg (27.0-33.0); Mean Corpuscular Volume 90.5 fL (80.0-98.0); Mean Platelet Volume 10.5 fL (9.4-12.4); Monocytes Absolute Auto 0.7 X10*3/uL (0.1-1.2); Monocytes Percent Auto 13.6 % (2-11); Neutrophils Absolute Auto 2.6 x10*3/uL (2.0-8.3); Neutrophils Percent Auto 49.5 % (45-73); Platelet Count 341 X10*3/uL (160-400); Red Blood Count 4.85 X10*6/uL (4.60-5.80); Red Cell Distribution Width 13.2 % (11.0-16.0); White Blood Count 5.2 X10*3/uL (4.8-10.8)
[2023-12-14 14:29] LABS: Alanine Aminotransferase 54 U/L (0-40); Albumin Level 4.5 g/dL (3.5-5.0); Alkaline Phosphatase 66 U/L (39-117); Anion Gap 13 (12-20); Aspartate Amino Transferase 28 U/L (5-37); Bilirubin Total 0.6 mg/dL (0.0-1.0); Blood Urea Nitrogen 13 mg/dL (9-16); Calcium 9.9 mg/dL (8.4-10.2); Carbon Dioxide 26 mmol/L (22-29); Chloride 106 mmol/L (96-108); Estimated Glomerular Filt Rate > 60; Glucose Random 79 mg/dL (60-115); Potassium 4.5 mmol/L (3.3-5.1); Sodium 140 mmol/L (135-145); Total Protein 8.2 g/dL (6.5-8.0)
== END 2023-12-14 10:41 | disposition home or self-care (01) ==
LOC: HO.CHCLDS 10:40
PROVIDERS: Visit Provider Family Medicine
DX: R74.8 Abnormal levels of other serum enzymes (principal)
CPT/HCPCS: 36415; 80053; 85025

== ENCOUNTER 2023-12-14 22:18 | Emergency (ER) | payer MEDICAID, SELFPAY ==
--- NOTE | ~2023-12-14 | CT_ITS ---
EXAMINATION: CT ABDOMEN AND PELVIS WITH CONTRAST CLINICAL INFORMATION: Right lower quadrant pain and tenderness COMPARISON: 03/22/2022 TECHNIQUE: Multidetector volumetric images were obtained from the superior aspect of the liver through the pubic symphysis following administration 100 mL of Omnipaque 350 intravenous contrast. Sagittal and coronal reformatted images were obtained on the technologist's workstation. Oral contrast: No This CT examination was performed using dose optimization techniques as appropriate, variously including the following: *Automated exposure control *Adjustment of mA and/or kV according to patient size (this includes techniques or standardized protocols for targeted exams where dose is matched to indication/reason for exam; i.e. extremities or head) *Use of iterative reconstruction technique DLP: 1260 mGy-cm FINDINGS: LUNG BASES: The visualized lung bases are unremarkable. LIVER, GALLBLADDER, AND BILIARY TREE: The liver is normal in size, shape, and attenuation. No focal hepatic lesion or biliary ductal dilatation is present. The gallbladder is contracted and not adequately evaluated. PANCREAS: Unremarkable. SPLEEN: Unremarkable. ADRENAL GLANDS: Unremarkable. KIDNEYS AND URETERS: Bilateral nephrograms are symmetric. No hydronephrosis or obstructing calculus identified. BLADDER: Unremarkable. GASTROINTESTINAL TRACT: No evidence of bowel obstruction or significant wall thickening. The appendix appears near the upper limits of normal in size similar to prior, without surrounding stranding to suggest appendicitis. No free fluid or free air is seen. ABDOMINAL WALL: No significant hernia is appreciated. LYMPH NODES: Scattered mesenteric and retroperitoneal subcentimeter lymph nodes are present, without significant enlargement by size criteria. VASCULAR: Unremarkable. PELVIC VISCERA: Unremarkable. OSSEOUS STRUCTURES: Unremarkable. CT/CT abdomen pelvis w IV con IMPRESSION: No acute findings identified in the abdomen/pelvis.
[2023-12-14 22:29] VITALS: BP 112/68; BP 152/82; PULSE 79; PULSE 81; RESP 16; TEMP 37; O2SAT 97; O2SAT 98
[2023-12-14 22:44] VITALS: BP 112/68; PULSE 79; RESP 16; TEMP 37; O2SAT 97; BMI 45.7
--- NOTE | 2023-12-14 22:51 | PC.NURSE ---
Pt ca&ox4, no signs of distress. Pt reports 7/10 abd pain and headache/dizziness. Plan of care ongoing.
[2023-12-15 00:32] LABS: MANUAL DIFF FLAG NO
[2023-12-15 00:35] LABS: Basophils Absolute Auto 0.1 X10*3/uL (0.0-0.2); Basophils Percent Auto 0.8 % (0-2); Eosinophils Absolute Auto 0.3 X10*3/uL (0.0-0.4); Hematocrit 39.3 % (42.0-52.0); Hemoglobin 13.5 g/dl (14.0-18.0); Imm Gran Abs Auto 0.02 X10*3/uL (0.00-0.03); Imm Gran Pct Auto 0.3 % (0.0-0.4); Lymphocytes Absolute Auto 2.1 X10*3/uL (1.2-4.9); Lymphocytes Percent Auto 28.9 % (20-40); Mean Corpuscular HGB Conc 34.4 g/dl (31.0-36.0); Mean Corpuscular Hemoglobin 30.5 pg (27.0-33.0); Mean Corpuscular Volume 88.7 fL (80.0-98.0); Mean Platelet Volume 9.7 fL (9.4-12.4); Monocytes Absolute Auto 0.9 X10*3/uL (0.1-1.2); Monocytes Percent Auto 11.8 % (2-11); Neutrophils Absolute Auto 3.9 x10*3/uL (2.0-8.3); Neutrophils Percent Auto 54.2 % (45-73); Platelet Count 300 X10*3/uL (160-400); Red Blood Count 4.43 X10*6/uL (4.60-5.80); White Blood Count 7.2 X10*3/uL (4.8-10.8)
[2023-12-15 00:45] LABS: IDNOW Serial# 6674DD1D; Strep A Nucleic Acid Negative (Negative)
[2023-12-15 00:49] LABS: Alanine Aminotransferase 46 U/L (0-40); Albumin Level 4.1 g/dL (3.5-5.0); Alkaline Phosphatase 62 U/L (39-117); Anion Gap 12 (12-20); Aspartate Amino Transferase 23 U/L (5-37); Bilirubin Direct 0.1 mg/dL (0.0-0.5); Bilirubin Total 0.3 mg/dL (0.0-1.0); Blood Urea Nitrogen 15 mg/dL (9-16); Calcium 9.6 mg/dL (8.4-10.2); Carbon Dioxide 25 mmol/L (22-29); Chloride 106 mmol/L (96-108); Creatinine Clr Calc Pharmacy 169.6; Estimated Glomerular Filt Rate > 60; Glucose Random 107 mg/dL (60-115); Lipase 14 U/L (8-78); Sodium 139 mmol/L (135-145); Total Protein 7.4 g/dL (6.5-8.0)
[2023-12-15 01:09] LABS: Influenza A PCR NEGATIVE (Negative); Influenza B PCR NEGATIVE (Negative); Resp Syncy Virus RNA Qual PCR NEGATIVE (Negative); SARS COV2 PCR INHOUSE NEGATIVE (Negative)
[2023-12-15 02:21] VITALS: BP 116/67; PULSE 77; RESP 16; TEMP 36.3; O2SAT 98
--- NOTE | 2023-12-15 02:31 | ED_ITS ---
HPI - General Adult General Chief complaint: Abdominal Pain Stated complaint: gen weakness, abd pain, N/V, - on stroke scale Time Seen by Provider: 12/15/23 02:31 History of Present Illness ED Provider: Matthew COBOS narrative: The patient is a 23-year-old male who says that he had a decreased appetite and abdominal pain throughout the day today. Tonight he also felt nauseated and vomited. An ambulance was called and he was brought to the hospital. He says that he has pain in his right lower quadrant and also some pain on the left side of his abdomen as well. He says that when he vomited his emesis looks like clear liquid. His last bowel movement was earlier today. He says it was dark green. He has had no black stools. Patient had some outpatient lab work done through the [facility] this morning. This was an anticipation of a PCP office appointment in 2 weeks. Related Data Home Medications ?Medication ?Instructions ?Recorded ?Confirmed fluticasone propionate 50 1 - 2 spray intranasal DAILY PRN 01/23/22 05/26/22 mcg/actuation nasal spray,suspension wajfaae-xiwkhghjeuyxu-bobgeziu 250 2 tab PO Q8H PRN headache 05/26/22 05/26/22 mg-250 mg-65 mg tablet (Migraine Relief) methylcellulose (laxative) 500 mg 500 mg PO BID PRN 05/26/22 05/26/22 tablet (Citrucel) quetiapine 25 mg tablet 12.5 mg PO BID 05/26/22 05/26/22 trazodone 100 mg tablet 100 mg PO BEDTIME 05/26/22 05/26/22 Previous Rx's ?Medication ?Instructions ?Recorded gabapentin 100 mg capsule 100 - 300 mg (1 - 3 x 100 mg) PO 05/26/22 BEDTIME 30 days #90 caps ibuprofen 600 mg tablet 600 mg PO BID PRN pain 30 days #60 05/26/22 tabs magnesium oxide 400 mg (241.3 mg 400 mg PO BEDTIME 30 days #30 tabs 05/26/22 magnesium) tablet naratriptan 2.5 mg tablet 1.25 - 2.5 mg (0.5 - 1 x 2.5 mg) 05/26/22 PO .COMPLEX PRN migraine headache 30 days #12 tabs riboflavin (vitamin B2) 400 mg 400 mg PO DAILY 30 days #30 tabs 05/26/22 tablet fluticasone furoate 27.5 1 spray intranasal DAILY #5.9 mL 01/11/23 mcg/actuation nasal spray,suspension wwopjyyx-erabhm-HQ-thonzonm 3.3 1 appl otic (ears) QID #10 mL 01/11/23 mg-3 mg-10 mg-0.5 mg/mL ear drops,susp (Cortisporin-TC) Allergies Allergy/AdvReac Type Severity Reaction Status Date / Time SEASONAL ALLERGIES Allergy Unknown RUNNY Uncoded 12/14/23 22:47 NOSE, ITCHY EYES Review of Systems 2 Review of Systems: Yes all other systems are reviewed and are negative FORMERLY [facility], [facility] Past Medical History Medical History ADHD Insomnia Obesity Surgical History History of placement of ear tubes Hx of toe surgery Hx of wisdom tooth extraction Family History Family History Paternal Grandfather Diabetes Hypertension Mother Headache Seizures Migraine-cluster headache syndrome Myocardial infarction Hypertension Social History Social History Household Members: Family Household Members Other:: Mother, Sisters, brothers, grandparent, and 3 dogs Alcohol intake: never Patient Tobacco Use Status: Never used Tobacco Smoked in Last 30 Days: No Use of substances other than those prescribed or required for medical reasons: No Advance Directives: No Advance Directives Information Provided: Yes Do you have a plan to hurt others: No Plan Current occupational status: unemployed Physical Exam ED Vital Signs: Vital Signs - 24 hr 12/14/23 22:29 12/14/23 22:44 12/15/23 02:21 Temperature 98.6 F 98.6 F 97.4 F Pulse Rate 79 79 77 Respiratory Rate 16 16 16 Blood Pressure 112/68 112/68 116/67 Pulse Oximetry 97 97 98 Oxygen Delivery Method Room Air Room Air Room Air 12/15/23 05:44 12/15/23 05:54 Temperature 98.4 F 98.4 F Pulse Rate 53 53 Respiratory Rate 16 16 Blood Pressure 128/83 128/83 Pulse Oximetry 98 98 Oxygen Delivery Method Room Air Room Air BMI result Body Mass Index 45.7 Const Other: The patient was asleep when I 1st entered the room. He seemed to be sleeping fairly soundly. He did not seem in distress. However once he was awake he looked more uncomfortable. HENMT Other: The head and the face are symmetrical. Eyes Other: Pupils are round equal, conjunctivae are clear Resp Effort & Inspection: normal respiratory effort Auscultation: clear to auscultation bilaterally Cardio Palpation: normal PMI Rate: regular rate Rhythm: regular rhythm and abnormal rhythm GI Other: The patient has right lower quadrant tenderness with some guarding. He also has tenderness on the left lateral mid abdomen. Digital rectal exam reveals only a small amount of greenish material which may this. No melena. Skin Other: Skin is dry and unremarkable Neuro Other: The patient was asleep when I first encountered him but he awoke easily to a normal mental status. Cranial nerves are grossly intact. He moves his extremities symmetrically. Extrem Other: No calf swelling or tenderness. No asymmetry. No pitting edema. Medications Administered Discontinued Medications Generic Name Dose Route Start Last Admin Trade Name Andrzejq PRN Reason Stop Dose Admin Sodium Chloride 1,000 mls @ 999 mls/hr 12/15/23 03:00 12/15/23 04:50 Ns IV 12/15/23 04:00 Infused .Q1H1M ANNE Infusion Iohexol 100 ml 12/15/23 03:43 12/15/23 03:44 Iohexol 350 Mg/Ml 100 Ml Infus..Btl IV 12/15/23 03:44 100 ml ONCE ONE Administration Medical Decision Making Medical Decision Making [facility] Narrative: The patient is a 23-year-old male who presents for evaluation of abdominal pain and vomiting. He is currently enrolled in the [facility] program. On exam he had right lower quadrant tenderness. The patient's workup in the emergency room is essentially negative. He had unremarkable labs. CT of the abdomen and pelvis does not show any acute findings. I think he may be discharged back to [facility]. He should follow up with his PCP. Lab Data 12/15/23 00:27 12/15/23 00:27 Labs: Lab Results 12/15/23 12/15/23 Range/Units 00:27 03:31 WBC 7.2 (4.8-10.8) X10*3/uL RBC 4.43 L (4.60-5.80) X10*6/uL Hgb 13.5 L (14.0-18.0) g/dl Hct 39.3 L (42.0-52.0) % MCV 88.7 (80.0-98.0) fL MCH 30.5 (27.0-33.0) pg MCHC 34.4 (31.0-36.0) g/dl RDW 13.0 (11.0-16.0) % Plt Count 300 (160-400) X10*3/uL MPV 9.7 (9.4-12.4) fL Immature Gran % (Auto) 0.3 (0.0-0.4) % Neut % (Auto) 54.2 (45-73) % Lymph % (Auto) 28.9 (20-40) % Sully % (Auto) 11.8 H (2-11) % Eos % (Auto) 4.0 (0-4) % Baso % (Auto) 0.8 (0-2) % Lymph # (Auto) 2.1 (1.2-4.9) X10*3/uL Sully # (Auto) 0.9 (0.1-1.2) X10*3/uL Eos # (Auto) 0.3 (0.0-0.4) X10*3/uL Baso # (Auto) 0.1 (0.0-0.2) X10*3/uL Abs Immat Gran (auto) 0.02 (0.00-0.03) X10*3/uL Absolute Neuts (auto) 3.9 (2.0-8.3) x10*3/uL Absolute Nucleated RBC 0.000 (0.0-0.012) X10*3/uL Nucleated RBC % (auto) 0.0 (0.0-0.2) /100WBC Sodium 139 (135-145) mmol/L Potassium 4.0 (3.3-5.1) mmol/L Chloride 106 (96-108) mmol/L Carbon Dioxide 25 (22-29) mmol/L Anion Gap 12 (12-20) BUN 15 (9-16) mg/dL Creatinine 1.08 (0.5-1.4) mg/dL Estim Creat Clear Calc 169.6 Estimated GFR > 60 Random Glucose 107 (60-115) mg/dL Calcium 9.6 (8.4-10.2) mg/dL Total Bilirubin 0.3 (0.0-1.0) mg/dL Direct Bilirubin 0.1 (0.0-0.5) mg/dL AST 23 (5-37) U/L ALT 46 H (0-40) U/L Alkaline Phosphatase 62 (39-117) U/L Total Protein 7.4 (6.5-8.0) g/dL Albumin 4.1 (3.5-5.0) g/dL Lipase 14 (8-78) U/L Urine Color Yellow Urine Appearance Clear Urine pH 6.0 (5.0-9.0) Ur Specific [place] 1.025 (1.005-1.025) Urine Protein Trace (Neg-Trace) mg/dL Urine Glucose (UA) Negative (Negative) mg/dL Urine Ketones Negative (Negative) mg/dL Urine Blood Negative (Negative) Urine Nitrite Negative (Negative) Ur Leukocyte Esterase Negative (Negative) Influenza Type A (PCR) NEGATIVE (Negative) Influenza Type B (PCR) NEGATIVE (Negative) RSV RNA Qual (PCR) NEGATIVE (Negative) SARS-CoV-2 RNA (RT-PCR) NEGATIVE (Negative) S. pyogenes GrpA ENDY Negative (Negative) Discharge Plan Discharge Clinical Impression: Abdominal pain with vomiting Patient Disposition: Home, Self-Care Additional Instructions: Your testing in the emergency room today is very reassuring. There is no sign of any dangerous process. Please plan on following up soon with your regular doctor. Return to the emergency room if significantly worse. Prescriptions: No Action fluticasone furoate 27.5 mcg/actuation spray,suspension 1 spray intranasal DAILY Qty: 5.9 0RF Rx Instructions: into each nostril Cortisporin-TC 3.3-3-10-0.5 mg/mL drops,suspension 1 appl otic (ears) QID Qty: 10 0RF Rx Instructions: 7 days fluticasone propionate 50 mcg/actuation spray,suspension 1 - 2 spray intranasal DAILY PRN trazodone 100 mg tablet 100 mg PO BEDTIME Citrucel 500 mg tablet 500 mg PO BID PRN quetiapine 25 mg tablet 12.5 mg PO BID Migraine Relief 250-250-65 mg tablet 2 tab PO Q8H PRN (Reason: headache) riboflavin (vitamin B2) 400 mg tablet 400 mg PO DAILY 30 Days Qty: 30 6RF magnesium oxide 400 mg (241.3 mg magnesium) tablet 400 mg PO BEDTIME 30 Days Qty: 30 6RF Rx Instructions: may hold for loose stools naratriptan 2.5 mg tablet 1.25 - 2.5 mg PO .COMPLEX PRN (Reason: migraine headache) 30 Days Qty: 12 3RF Rx Instructions: 1.25 - 2.5 mg orally, msy repeat in 2 hrs, may take w/ Ibuprofen, prn ibuprofen 600 mg tablet 600 mg PO BID PRN (Reason: pain) 30 Days Qty: 60 3RF gabapentin 100 mg capsule 100 - 300 mg PO BEDTIME 30 Days Qty: 90 3RF Referrals: Marley Tomlinson MD [Primary Care Provider] - (Abdominal pain, vomiting) Interventions: ED Discharge Assessment Last Done: 12/15/23 05:54 Discharge Date/Time: 12/15/23 05:57 Print Language: Czech
[2023-12-15] MEDS: 0.9 % Sodium Chloride 1,000 ML 999 ML IV (03:29)
--- NOTE | 2023-12-15 03:33 | PC.NURSE ---
Pt back from CT Pt medicated per jul. UA sent Plan of care ongoing.
[2023-12-15 03:37] LABS: Appearance Urine Clear; Color Urine Yellow; Glucose Urine UA Negative (Negative); Leukocyte Esterase Urine Negative (Negative); Nitrite Urine Negative (Negative); Specific Gravity - Urine 1.025 (1.005-1.025); Urine Blood Negative (Negative); Urine Ketones Negative (Negative); Urine Protein Trace mg/dL (Neg-Trace)
[2023-12-15] MEDS: iohexoL 350 MG/ML 100 ML INFUS..BTL IV (03:44)
[2023-12-15 05:44] VITALS: BP 128/83; PULSE 53; RESP 16; TEMP 36.9; O2SAT 98
[2023-12-15 05:54] VITALS: BP 128/83; PULSE 53; RESP 16; TEMP 36.9; O2SAT 98
== END 2023-12-15 05:57 | disposition home or self-care (01) ==
PROVIDERS: Physician Assistant Medical; Emergency Provider Emergency Medicine; PCP Family Medicine
DX: R10.31 Right lower quadrant pain (principal); R11.2 Nausea with vomiting, unspecified; Z03.818 Encounter for observation for suspected exposure to other biological agents ruled out
CPT/HCPCS: 0241U; 36415; 74177; 80048; 80076; 81003; 83690; 85025; 87651; 96360; 99284; Q9967

== ENCOUNTER 2024-07-22 16:50 | Emergency (ER) | payer MEDICAID, SELFPAY ==
[2024-07-22 17:03] VITALS: BP 125/85; PULSE 86; RESP 18; TEMP 36.7; O2SAT 97; BMI 45.1
[2024-07-22 17:23] LABS: IDNOW Serial# 58CA691E; Strep A Nucleic Acid Negative (Negative)
[2024-07-22 17:52] LABS: Influenza A PCR NEGATIVE (Negative); Influenza B PCR NEGATIVE (Negative); Resp Syncy Virus RNA Qual PCR NEGATIVE (Negative); SARS COV2 PCR INHOUSE NEGATIVE (Negative)
[2024-07-22 19:17] VITALS: BP 146/76; PULSE 81; RESP 18; TEMP 36.9; O2SAT 97
--- NOTE | 2024-07-22 19:18 | ED.GENADULT ---
HPI - General Adult General Chief complaint: Upper Respiratory Symptoms Stated complaint: ?Pneumonia Time Seen by Provider: 07/22/24 19:18 Source: patient, RN notes reviewed and old records reviewed Mode of arrival: ambulatory Limitations: no limitations History of Present Illness ED Provider: Cece HPI narrative: 23-year-old male presents for evaluation of coughing and shortness of breath. Patient reports he has been coughing for about 3 weeks. Reports for last 2 days he has been coughing up green sputum and he reports shortness of breath Denies any leg swelling or recent travel Denies any sick contacts Related Data Home Medications ?Medication ?Instructions ?Recorded ?Confirmed fluticasone propionate 50 1 - 2 spray intranasal DAILY PRN 01/23/22 05/26/22 mcg/actuation nasal spray,suspension ukrteag-gfxivofmoorms-ivvijkju 250 2 tab PO Q8H PRN headache 05/26/22 05/26/22 mg-250 mg-65 mg tablet (Migraine Relief) methylcellulose (laxative) 500 mg 500 mg PO BID PRN 05/26/22 05/26/22 tablet (Citrucel) quetiapine 25 mg tablet 12.5 mg PO BID 05/26/22 05/26/22 trazodone 100 mg tablet 100 mg PO BEDTIME 05/26/22 05/26/22 Previous Rx's ?Medication ?Instructions ?Recorded gabapentin 100 mg capsule 100 - 300 mg (1 - 3 x 100 mg) PO 05/26/22 BEDTIME 30 days #90 caps ibuprofen 600 mg tablet 600 mg PO BID PRN pain 30 days #60 05/26/22 tabs magnesium oxide 400 mg (241.3 mg 400 mg PO BEDTIME 30 days #30 tabs 05/26/22 magnesium) tablet naratriptan 2.5 mg tablet 1.25 - 2.5 mg (0.5 - 1 x 2.5 mg) 05/26/22 PO .COMPLEX PRN migraine headache 30 days #12 tabs riboflavin (vitamin B2) 400 mg 400 mg PO DAILY 30 days #30 tabs 05/26/22 tablet fluticasone furoate 27.5 1 spray intranasal DAILY #5.9 mL 01/11/23 mcg/actuation nasal spray,suspension bgcsvrme-nnrryk-QR-thonzonm 3.3 1 appl otic (ears) QID #10 mL 08/31/23 mg-3 mg-10 mg-0.5 mg/mL ear drops,susp (Cortisporin-TC) azithromycin 250 mg tablet See Rx Instructions PO .COMPLEX #6 07/22/24 tabs prednisone 20 mg tablet 40 mg (2 x 20 mg) PO DAILY #10 tabs 07/22/24 Allergies Allergy/AdvReac Type Severity Reaction Status Date / Time SEASONAL ALLERGIES Allergy Unknown RUNNY Uncoded 07/22/24 17:05 NOSE, ITCHY EYES Review of Systems Constitutional: Constitutional: Denies body ache(s), Denies chills and Denies fever(s) ENT: Reports nasal congestion and Denies sore throat Cardiovascular: Cardiovascular: Denies chest pain and Denies dyspnea Respiratory: Respiratory: Reports chest congestion, Reports cough, Reports excessive phlegm production and Denies dyspnea Gastrointestinal: Gastrointestinal: Denies abdominal pain, Denies nausea and Denies vomiting Musculoskeletal: Musculoskeletal: Denies back pain Integumentary/Breasts: Skin/Breast: Denies rash PMFSH Past Medical History Medical History ADHD Insomnia Obesity Surgical History History of placement of ear tubes Hx of toe surgery Hx of wisdom tooth extraction Family History Family History Paternal Grandfather Diabetes Hypertension Mother Headache Seizures Migraine-cluster headache syndrome Myocardial infarction Hypertension Social History Social History Household Members: Family Household Members Other:: Mother, Sisters, brothers, grandparent, and 3 dogs Alcohol intake: never Patient Tobacco Use Status: Never used Tobacco Advance Directives: No Advance Directives Information Provided: No Current occupational status: unemployed Physical Exam ED Vital Signs: Vital Signs - 24 hr 07/22/24 17:03 07/22/24 19:17 07/22/24 19:44 Temperature 98.1 F 98.4 F 98.4 F Pulse Rate 86 81 81 Respiratory Rate 18 18 18 Blood Pressure 125/85 146/76 H 146/76 H Pulse Oximetry 97 97 97 Oxygen Delivery Method Room Air Room Air Room Air BMI result Body Mass Index 45.1 Const General: healthy appearing, comfortable, no acute distress, alert and awake Nutritional Appearance: well nourished Orientation/consciousness: patient oriented x3 HENMT Head: Yes normocephalic and Yes atraumatic Eyes Eyelids: Yes eyelids normal Conjunctivae: conjunctivae normal Sclerae: sclerae normal Corneas: corneas normal Pupils: Equal, round and reactive pupils present EOM: EOMs intact bilaterally Neck Neck: Yes full ROM Resp Effort & Inspection: normal respiratory effort, able to speak in complete sentences, no audible wheezes and not labored Auscultation: clear to auscultation bilaterally Cardio Rate: regular rate Rhythm: regular rhythm Skin General skin exam: elasticity normal Neuro General: patient oriented x3 Cranial nerves: Yes Equal, round and reactive pupils present and Yes Bilaterally intact EOM present Cognition (Neuro): normal cognition Extrem Other: Moving all extremities well without any obvious deformities Medical Decision Making Medical Decision Making MDM Narrative: 23-year-old male presents for evaluation of cough, congestion and green mucus. His symptoms have been present for about 3 weeks. His lungs are clear to auscultation, oxygen saturation is 96% or better on room air. He is afebrile, well-appearing. No leg swelling recent travel to suggest DVT. His symptoms are most consistent with a sinusitis. Given that his symptoms have been present for 3 weeks we will treat with azithromycin and prednisone. Considered chest x-ray, however given the patient's lungs are clear to auscultation this was deferred at this time. Differential Diagnosis Differential Diagnoses: The differential diagnosis associated with the presentation includes Upper respiratory infection Bronchitis Pneumonia Influenza COVID-19 Lab Data Labs: Lab Results 07/22/24 Range/Units 17:10 Influenza Type A (PCR) NEGATIVE (Negative) Influenza Type B (PCR) NEGATIVE (Negative) RSV RNA Qual (PCR) NEGATIVE (Negative) SARS-CoV-2 RNA (RT-PCR) NEGATIVE (Negative) S. pyogenes GrpA ENDY Negative (Negative) Discharge Plan Discharge Clinical Impression: Acute upper respiratory infection Patient Disposition: Home, Self-Care Instructions: Upper Respiratory Infection (ED) Additional Instructions: Your workup in the ER today was reassuring. Your lungs are clear on auscultation. Your viral swabs were negative for flu, COVID, RSV. I recommend that you take azithromycin and prednisone as prescribed for upper respiratory infection Prescriptions: New azithromycin 250 mg tablet See Rx Instructions .ROUTE .COMPLEX Qty: 6 0RF Rx Instructions: For 250 mg dose pack: take 500 mg today (day 1), then 250 mg for 4 days (days 2-5) prednisone 20 mg tablet 40 mg PO DAILY Qty: 10 0RF No Action fluticasone furoate 27.5 mcg/actuation spray,suspension 1 spray intranasal DAILY Qty: 5.9 0RF Rx Instructions: into each nostril Cortisporin-TC 3.3-3-10-0.5 mg/mL drops,suspension 1 appl otic (ears) QID Qty: 10 0RF Rx Instructions: 7 days fluticasone propionate 50 mcg/actuation spray,suspension 1 - 2 spray intranasal DAILY PRN trazodone 100 mg tablet 100 mg PO BEDTIME Citrucel 500 mg tablet 500 mg PO BID PRN quetiapine 25 mg tablet 12.5 mg PO BID Migraine Relief 250-250-65 mg tablet 2 tab PO Q8H PRN (Reason: headache) riboflavin (vitamin B2) 400 mg tablet 400 mg PO DAILY 30 Days Qty: 30 6RF magnesium oxide 400 mg (241.3 mg magnesium) tablet 400 mg PO BEDTIME 30 Days Qty: 30 6RF Rx Instructions: may hold for loose stools naratriptan 2.5 mg tablet 1.25 - 2.5 mg PO .COMPLEX PRN (Reason: migraine headache) 30 Days Qty: 12 3RF Rx Instructions: 1.25 - 2.5 mg orally, msy repeat in 2 hrs, may take w/ Ibuprofen, prn ibuprofen 600 mg tablet 600 mg PO BID PRN (Reason: pain) 30 Days Qty: 60 3RF gabapentin 100 mg capsule 100 - 300 mg PO BEDTIME 30 Days Qty: 90 3RF Interventions: ED Discharge Assessment Last Done: 07/22/24 19:44 Discharge Date/Time: 07/22/24 19:45 Print Language: Indonesian
--- OUTSIDE RECORDS SUMMARY | 2024-07-22 19:39 | XMS_ITS | Encounter Summary ---
Author Organization [employer] Address [address] [facility] [place] [address] Care Team Providers Care Printed Circuit Board Pcb Designer Name Role Phone Marley Tomlinson MD Primary Care Provider [phone] Encounter Details Date Type Department Care Team ([facility] Contact Info) Description 04/09/2024 Orders Only [facility] CHC MED & PEDS [address] [place], [place] [id number] ProviderEmile MD Social History Tobacco Use Types Packs/Day Years Used Date Smoking Tobacco: Never Passive Smoke Exposure: Never Smokeless Tobacco: Never Alcohol Use Standard Drinks/Week Comments Never 0 (1 standard drink = 0.6 oz pur e alcohol) Alcohol Answer Date Recorded Frequency of Alcohol Consumption Not on file 09/06/2023 Average Number of Drinks Not on file 024 Frequency of Binge Drinking Not on file 08/13 Score 0 09/06/2023 Depression Answer Date Recorded Patient Health Questionnaire-9 Score 13 09/06/2023 Patient Health Questionnaire-9 Score 13 09/06/2023 Last PHQ-9: Questionnaire Data Not on file 0 09/06/2023 Housing Stability Answer Date Recorded What is your housing situation today? I have shantanu reyes 02/26/[address] you li ve. Do you have problems with any of the following? None of the above 02/26/2023 Food Insecurity Answer Date Recorded Within the past 12 months, y ou worried that your food would run out before you got money to buy more: Never True 02/26/2023 Within the past 12 months,th e food you bought just didn't last and you didn't have enough money to get more: Never True Transportation Answer Date Recorded In the past 12 months, has l ack of transportation kept you from medical appts, meetings, work or from getting things needed for daily living? No 02/26/2023 Utilities Answer Date Recorded In the past 12 months, has t he electric, gas, oil or water company threatened to shut off services in your home? No 02/26/2023 Depression Answer Date Recorded Patient Health Questionnaire-2 Score 2 09/06/2023 Sex and Gender Information Value Date Recorded Sex Assigned at Male 03/13/2022 10:17 AM EDT Legal Sex Male 10:17 AM EDT Gender Identity Male 03/13/2022 10:17 AM EDT Sexual Orientation Straight 07/14/2022 3: 06 PM EST documented as of this encounter Plan of Treatment Not on file documented as of this encounter Procedures Procedure Name Priority Date/Time Associated Diagnosis Comments EMG Routine 04/03/2024 9:46 AM EST documented in this encounter Results * EMG (04/03/2024 9:46 AM EST) us Historical Provider NEUROLOGY ORDERABLES Mary l Result documented in this encounter Visit Diagnoses Not on filedocumented in this encounter Additional Health Concerns Assessment Noted Time PHQ-9 Depression Total Score: 13 024 2:07 PM EDT documented as of this encounter Care Teams Printed Circuit Board Pcb Designer Relationship Specialty Start Date End Date Marley Tomlinson MD [address] [place] [id number] PCP - General Family Medicine 10/24/21 Augustine magaña Microfilm TechnicianBug Trimmer 05/28/24 documented as of this encounter
--- OUTSIDE RECORDS SUMMARY | 2024-07-22 19:39 | XMS_ITS | Encounter Summary ---
Author Organization [employer] Address [address] [place] [address] 7 [place] [address] Care Team Providers Care Vp Ad Products And Planning Name Role Phone Marley Tomlinson MD Primary Care Provider [phone] Reason for Visit * Reason Comments Med Refill Encounter Details Date Type Department Care Team ([facility] Contact Info) Description 06/17/2024 Refill [facility] CHC MED & PEDS [address] [place] [address] Segundo Espinoza MD [address] [place] [address] Social History Tobacco Use Types Packs/Day Years [...] on file documented as of this encounter Visit Diagnoses Not on filedocumented in this encounter Additional Health Concerns Assessment Noted Time PHQ-9 Depression Total Score: 13 024 2:07 PM EDT documented as of this encounter Care Teams Vp Ad Products And Planning Relationship Specialty Start Date End Date Marley Tomlinson MD [address] [place] [address] PCP - General Family Medicine 10/24/21 Augustine magaña Technologist Infectious DiseaseContinuous Improvement Engineer 05/28/24 documented as of this encounter
--- OUTSIDE RECORDS SUMMARY | 2024-07-22 19:39 | XMS_ITS | Encounter Summary ---
Author Organization [employer] Address [address] [place] [address] [address]t [place] [address] Care Team Providers Care Exceptional Student Education Teacher Name Role Phone Marley Tomlinson MD Primary Care Provider Reason for Visit * Reason Comments Med Refill Encounter Details Date Type Department Care Team ([facility] st Contact Info) Description 02/23/2024 Refill [facility] CHC MED & PEDS [address] [place] [address] Marley Tomlinson MD [address] [place] [address] Social History Tobacco Use Types Packs/Day Years [...] Noted Time PHQ-9 Depression Total Score: 13 09/05/ 024 2:07 PM EDT documented as of this encounter Care Teams Exceptional Student Education Teacher Relationship Specialty Start Date End Date Marley Tomlinson MD [address] [place] [address] PCP - General Family Medicine 10/24/21 Augustine magaña Bobbin SorterAwning Erector 05/28/24 documented as of this encounter
--- OUTSIDE RECORDS SUMMARY | 2024-07-22 19:39 | XMS_ITS | Encounter Summary ---
Author Organization [employer] Address [address] [place] [address] 7 [place] [address] Care Team Providers Care Systems Programmer Name Role Phone Marley Tomlinson MD Primary Care Provider [phone] Encounter Details Date Type Department Care Team (Latest Contact Info) Description 12/30/2021 [facility] CON[facility]S Dental, Provider, DDS Social History Tobacco Use Types Packs/Day Years Used Date Smoking Tobacco: Never Assessed Sex and Gender Information Value Date Recorded Sex Assigned at Male 03/13/2022 10:17 AM EDT Legal Sex Male 10:17 AM EDT Gender Identity Male 03/13/2022 10:17 AM EDT Sexual Orientation Straight 07/14/2022 3: 06 PM EST documented as of this encounter Plan of Treatment Not on file documented as of this encounter Visit Diagnoses Not on filedocumented in this encounter Care Teams Systems Programmer Relationship Specialty Start Date End Date Marley Tomlinson MD [address] [place] [address] PCP - General Family Medicine 10/24/21 Augustine magaña Research Animal Facility SupervisorWaiter/Waitress Head 05/28/24 documented as of this encounter
--- OUTSIDE RECORDS SUMMARY | 2024-07-22 19:39 | XMS_ITS | Encounter Summary ---
Author Organization [employer] Address [address] [place] [address] 7 [place] [address] Care Team Providers Care Director Intelligence Analysis Programs Name Role Phone Marley Tomlinson MD Primary Care Provider [phone] Reason for Visit * Reason Comments Med Refill Encounter Details Date Type Department Care Team ([facility] st Contact Info) Description 01/26/2023 Refill [facility] CHC MED & PEDS [address] [place], [place] [phone] Marley Tomlinson MD [address] [place] [address] Developmental academic disorder Social History Tobacco Use Types Packs/Day Years Used Date Smoking Tobacco: Never Passive Smoke Exposure: Never Smokeless Tobacco: Never Alcohol Use Standard Drinks/Week Comments Never 0 (1 standard drink = 0.6 oz pur e alcohol) Depression Answer Date Recorded Patient Health Questionnaire-9 Score 7 05/17/2022 Depression Answer Date Recorded Patient Health Questionnaire-2 Score 1 05/17/2022 Sex and Gender Information Value Date Recorded Sex Assigned at Male 03/13/2022 10:17 AM EDT Legal Sex Male 10:17 AM EDT Gender Identity Male 03/13/2022 10:17 AM EDT Sexual Orientation Straight 07/14/2022 3: 06 PM EST documented as of this encounter Plan of Treatment Not on file documented as of this encounter Visit Diagnoses Diagnosis Developmental academic disorder Unspecified delay in development documented in this encounter Additional Health Concerns Assessment Noted Time PHQ-9 Depression Total Score: 7 05/17/19 23 9:49 AM EST documented as of this encounter Care Teams Director Intelligence Analysis Programs Relationship Specialty Start Date End Date Marley Tomlinson MD [address] [place] [address] PCP - General Family Medicine 10/24/21 Augustine magaña Cheese SprayerCo Teacher 05/28/24 documented as of this encounter
--- OUTSIDE RECORDS SUMMARY | 2024-07-22 19:39 | XMS_ITS | Encounter Summary ---
Author Organization [employer] Address [address] [facility] 7t [place] [address] Care Team Providers Care Nicu Rn Name Role Phone Marley Tomlinson MD Primary Care Provider [phone] Encounter Details Date Type Department Care Team ([facility] st Contact Info) Description 12/17/2023 Telephone [facility] MEDICINE [address] [place] [address] Marley Tomlinson MD [address] [place], [place] [phone] Social History Tobacco Use Types Packs/Day Years [...] PM EST documented as of this encounter Miscellaneous Notes * Telephone Encounter - Didi Art - 12/17/2023 9:36 AM EDT .[facility] documented in this encounter Plan of Treatment Not on file documented as of this encounter Visit Diagnoses Not on filedocumented in this encounter Additional Health Concerns Assessment Noted Time PHQ-9 Depression Total Score: 13 024 2:07 PM EDT documented as of this encounter Care Teams Nicu Rn Relationship Specialty Start Date End Date Marley Tomlinson MD [address] [place] [id number] PCP - General Family Medicine 10/24/21 Augustine magaña Business Development ManagerHoop Rolls Operator 05/28/24 documented as of this encounter
--- OUTSIDE RECORDS SUMMARY | 2024-07-22 19:40 | XMS_ITS | Encounter Summary ---
Author Organization [employer] Address [address] [place] [address] 7 [place] [address] Care Team Providers Care Rug Weaver Name Role Phone Marley Tomlinson MD Primary Care Provider [phone] Reason for Visit * Reason Onset Date Comments Nurse Triage 06/27/2024 Encounter Details Date Type Department Care Team ([facility] st Contact Info) Description 06/27/2024 Telephone [facility] MEDICINE [address] [place] [address] Marley Tomlinson MD [address] [place] [address] Nurse Triage Social History Tobacco Use Types Packs/Day Years [...] encounter Miscellaneous Notes * Telephone Encounter - Cheryl Sher RN - 06/27/2024 3:32 PM EST Call returned to Terence Soto to triage below. Reports having bilateral hand and wrist pain x 8 months. No injury. No swelling, redness rash or bruising. Intermittent numbness. Able to make a fist and hold a cup. Pain worse with repetitve motinos. Per pt has been seen for this in past. Pt advised of disposition, agrees to return call on Sunday for [facility] or next day scheduling. Reviewed [facility] Sunday operating hours and that wait times vary. Reviewed home care advise, ER precautions and reasons to call back. Protocol Used: Wrist Pain (Adult) Protocol-Based Disposition: See in Office or Video Visit within 3 Days Video visit offer not recorded Positive Triage Question: * Pain is worsened by using computer keyboard or mouse * All higher-acuity triage questions were negative Care Advice Discussed: * Reasons To Call Back - Signs of infection occur (spreading redness, warmth, fever) - You become worse * Telephone Encounter - James Montelongo - 06/27/2024 3:11 PM EST Symptom: Hand or Wrist Pain - Not From Injury Outcome: Schedule an appointment to be seen within 24 hours Reason: Caller denied all higher acuity questions The caller accepted this outcome. documented in this encounter Plan of Treatment Not on file documented as of this encounter Visit Diagnoses Not on filedocumented in this encounter Additional Health Concerns Assessment Noted Time PHQ-9 Depression Total Score: 13 09/05/ 024 2:07 PM EDT documented as of this encounter Care Teams Rug Weaver Relationship Specialty Start Date End Date Marley Tomlinson MD [address] [place] [address] PCP - General Family Medicine 10/24/21 Augustine magaña Microbiology CoordinatorBehavioral Health Consultant 05/28/24 documented as of this encounter
--- OUTSIDE RECORDS SUMMARY | 2024-07-22 19:40 | XMS_ITS | Encounter Summary ---
Author Organization [employer] Address [address] [facility] [address] [place] [address] Care Team Providers Care Lawn Maintenance Worker Name Role Phone Marley Tomlinson MD Primary Care Provider Encounter Details Date Type Department Care Team (Late st Contact Info) Description 07/22/2024 Orders Only GENER[facility] EXTERNAL DATA DEPARTMENT Provider, Generic External Data Social History Tobacco Use Types Packs/Day Years [...] Procedure Name Priority Date/Time Associated Diagnosis Comments STREP A NUCLEIC ACID Routine 07/22/2024 5:10 PM EDT SARS COV2/INFLUENZA A/B AND RSV RNA QL NAAT Routine 07/22/2024 5:10 PM EDT documented in this encounter Results * SARS-CoV-2 RNA, Influenza A/B, and RSV RNA, Ql NAAT (07/22/2024 5:10 PM EDT) Influenza A PCR NEGATIVE Negative [facility] Influenza B PCR NEGATIVE Negative [facility] Resp Syncy Virus RNA Qual PCR NEGATIVE Negative [facility] SARS COV2 PCR NEGATIVE Negative [facility] Comment:All test results mus t be correlated with clinical findings.Negative results do not preclude SARS-CoV2, influenza Avirus, influenza B virus and/or RSV infectionand should not be used as the sole basis for treatment orother patient management decisions. Negative results must becombined with clinical observations, patient history, andepidemiological information.This test has not been evaluated for monitoring treatment ofinfection.This test has been authorized by the FDA under an EmergencyUse Authorization (EUA) for use by authorized laboratories.Testing performed on the [facility] GeneXpert utilizingreal-time RT-PCR.All SARS CoV2 and positive influenza A/B results arereported to [facility]. 07/22/2024 5:10 PM EDT 07/22/2024 5:13 PM EDT us Generic External Data Provider LAB MICROBIOLOGY - GENERAL ORDERABLES Final Result Performing Organization Address [facility] de Phone Number [facility] [address] [place] [phone] * Strep A Nucleic Acid (07/22/2024 5:10 PM EDT) IDNOW SERIAL# [id number] [facility] Strep A Nucleic Acid Negative Negative [facility] Comment:All test results mus t be correlated with clinical findings.This test has not been evaluated for monitoring treatment ofinfection.Additional follow-up testing using the culture method isrequired if the result is negative and clinical symptomspersist, or in the event of an acute rheumatic feveroutbreak. 07/22/2024 5:10 PM EDT 07/22/2024 5:13 PM EDT Generic External Data Provider LAB MICROBIOLOGY - GENERAL ORDERABLES Final Result Performing Organization Address [facility] de Phone Number [facility] [address] [place] [phone] documented in this encounter Visit Diagnoses Not on filedocumented in this encounter Additional Health Concerns Assessment Noted Time PHQ-9 Depression Total Score: 13 09/05/2 024 2:07 PM EDT documented as of this encounter Care Teams Lawn Maintenance Worker Relationship Specialty Start Date End Date Marley Tomlinson MD [address] [place] [address] PCP - General Family Medicine 10/24/21 Augustine magaña Cloth Mercerizer Back TenderCoil Shaper 05/28/24 documented as of this encounter
--- OUTSIDE RECORDS SUMMARY | 2024-07-22 19:40 | XMS_ITS | Clinical Summary ---
Author Organization [employer] Address [address] [place] [address] [address] [place] [address] Care Team Providers Care Applied Exercise Physiologist Name Role Phone Marley Tomlinson MD Primary Care Provider [phone] Allergies Active Allergy Reactions Criticality Noted Date Comments Pollen Extract 05/26/2022 Other reaction(s): RUNNY NOSE, ITCHY EYES Medications aspirin-acetam inophen-caffei ne (Excedrin Migraine) 250-250-65 MG tablet Take 2 tablets by mouth every 8 (eight) hours if needed for headaches. 02/09/20 22 Active cholecalcifero l (Vitamin D-3) 50 MCG (1999 UT) capsule Take by mouth Once per day. 07/13/19 24 Active benzoyl peroxide ([employer] Advanced 3-in-1 Cleanser) 5 % external wash Apply topically 2 times daily. 118 mL 2 09/06/19 24 025 Active acetaminophen (Tylenol) 500 MG tablet Take 2 tablets (1,000 mg) by mouth every 6 (six) hours if needed for moderate pain or fever for up to 25 doses. 50 tablet 10/12/19 24 Active ibuprofen 400 MG tablet Take 1 tablet (400 mg) by mouth every 6 (six) hours if needed for moderate pain or fever for up to 30 doses. 30 tablet 02/04/20 24 Active cetirizine (ZyrTEC) 10 MG tablet Take 1 tablet (10 mg) by mouth Once per day. 30 tablet 11 03/24/20 24 025 Active QUEtiapine (SEROquel) 50 MG tablet TAKE 1 TABLET BY MOUTH AT BEDTIME 30 tablet 1 05/23/19 25 Active pantoprazole (ProtoNix) 40 MG EC tablet TAKE ONE TABLET DAILY BEFORE BREAKFAST, DO NOT BREAK, CRUSH, DISSOLVE OR CHEW 90 tablet 06/06/19 25 Active fluticasone (Flonase) 50 MCG/ACT nasal spray INHALE 1 - 2 SPRAYS IN EACH NOSTRIL ONCE DAILY 16 g 2 06/24/19 25 Active fluticasone (Flonase) 50 MCG/ACT nasal spray Administer 1-2 sprays into each nostril Once per day. Shake gently. Before first use, prime pump. After use, clean tip and replace cap. 16 g 2 03/24/20 24 025 Discontinued Active Problems Problem Noted Date Diagnosed Date Cough 03/24/2024 Assessment & Plan (03/24/2024 3:54 PM EST): Refers has been having a dry cough for the past 2 weeks, denied fever/chills, shortness of breath, on examination lungs were clear. Will prescribe prednisone for 5 day due to airway inflation and will prescribe flonase/zyrtec for post-nasal drip Lumbar back pain 02/04/2024 Assessment & Plan (02/04/2024 12:03 PM EDT): Ordering XR of Lumbar Spine for further evaluation of Sx. Continue to take Tylenol 500 mg prn. Follow up in 6 months. Relevant Medications Acetaminophen (Tylenol) 500 mg tablet Paronychia of left thumb 12/31/2023 Assessment & Plan (12/31/2023 12:28 PM EDT): Prescribing Mupirocin for Sx. Relevant Medications Mupirocin (Bactroban) 2% ointment Abdominal pain with vomiting 12/17/2023 A vague feeling of discomfort 12/17/2023 Assessment & Plan (12/17/2023 1:43 PM EDT): Lab work came back normal, with exception of Liver function. Discontinue Mirtazapine and begin Seroquel. Discontinue Pepcid and begin Protonix. BP recheck is 130/72. Advised to follow up with the therapist to find a psych prescriber. F/u in 2 weeks. Relevant Medication Pantoprazole (Pepcid) 40 MG EC tablet Quetiapine (Seroquel) 50 MG tablet Poor historian 01/19/2023 Normal physical examination 06/26/2022 Assessment & Plan (06/26/2022 5:28 PM EST): Patient follows with Behavioral health for therapy, unclear dx, requested BHN to eval patient. In terms of his BMI, he is following with nutrition, see obesity. Vaccinations are UTD Will send HIV, lipid testing & Hep C testing Not sexually active. Needs SDOH screening. Memory deficit 05/17/2022 Assessment & Plan (05/17/2022 2:20 PM EST): Recommended to hold topamax as this started after he started medication for headache ppx, he already was referred to neurology, recommended calling and setting up appt. At this moment reports he has an uncoming appt with psych. Followup in 6-8 weeks. 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 Ordering lab work for further evaluation. Assessment & Plan (12/22/2022 10:18 AM EDT): Patient following with nutritional services. Requiring updated referral, referral placed. Assessment & Plan (06/26/2022 5:29 PM EST): Discussed calorie deficit, recommended reduction of 20-30% of maintenance calories. Recommended to decrease soda and sugary beverage consumption. Recommended at least 20 g per meal of protein to assist with satiety. Recommended at least 150 min/week of moderate intensity exercise. Resolved Problems Problem Noted Date Diagnosed Date Resolved Date Acute swimmer's ear of right side 01/19/2023 09/06/2023 Assessment & Plan (01/19/2023 2:20 PM EDT): Patient presents visit with ear infection is still complaining of ear discomfort. Will prescribe ear drops. Wheezing on expiration 01/19/202309/05 Assessment & Plan (01/19/2023 2:18 PM EDT): Patient presented with theorists complaints, Advised patient to treat with Ibuprofen Dysuria 01/19/2023 09/06/2023 Assessment & Plan (01/19/2023 2:13 PM EDT): Patient presents complaints of difficulty urinating. Will send urinalysis for further evaluation Localized swelling on right hand 11/08/2022 09/06/2023 Assessment & Plan (11/08/2022 3:32 PM EDT): Patient refers saw his rigth hand swell today after 12pm when he woke up. Denied fever/chills, vomiting, shortness of breath, cough, itchy troat. On verification through video there is no erythema, there is 2 small dots which seems to be related to bug bites. Reviewed red flag to visit ER, will provide benadryl, to to elevate extremity and apply cold pads, will also provide bacitracin. Bilateral impacted cerumen 05/17/2022 0 09/06/2023 Assessment & Plan (05/17/2022 2:20 PM EST): Not impacted, cerumen color chino In terms of his nose, no bleeding or clots, recommended vaseline in nostrils to maintain hydration. Encounters Date Type Department Care Team Description 07/22/2024 Orders Only GENERIC EXTERNAL DATA DEPARTMENT Provider, Generic External Data 06/27/2024 Telephone [facility] [address] [place] [address] Marley Tomlinson MD Nurse Triage 06/17/2024 Refill [facility] [address] [place], [place] [phone] Segundo Espinoza MD 06/06/2024 Refill [facility] [address] [place], [place] [phone] Marley Tomlinson MD 05/28/2024 Telephone [facility] [address] [place] [phone] Marley Tomlinson MD Care Coordination (ICP care plan) 05/22/2024 Refill [facility] [address] [place], [place] [phone] Marley Tomlinson MD 04/23/2024 Telephone [facility] [address] [place], [place] [phone] Marley Tomlinson MD Nurse Triage from Last 3 Months Immunizations Name Administration Dates Next Due DTaP 11/29/2007, 4,04/08/2003,02/05,2002 HPV 9-Valent 10/10/2016,02/04/2015 HPV, Quadrivalent 09/22/2014 Hep A, ped/adol, 2 dose 10/10/2016,09/22/2014 Hep B, Adolescent or Pediatric 04/08/2003,2002,2002 Hib (HbOC) 12/04/2003, 3,02/05/2003,11/19 IPV 11/29/2007, 4,02/05/2003,11/19 Influenza injectable quadriv alent IIV4 with preservative 01/19/2023,10/10/2016,02/04/2015 Influenza injectable quadriv alent preservative free 02/08/2022,04/12/2021,04/14/2020,02/11,03/20/2014 Influenza, IIV3, injectable 03/06/2007,1 ,03/01/2005,06/02,04/14/2004 Influenza, Split (incl. arielle fied surface antigen) 04/03/2013,04/19/2012,03/12/2012 Influenza, seasonal, injecta ble, preservative free 02/04/2024 MMR 11/29/2007,09/16/2003 Meningococcal MCV4P ACYW-135 02/11/2019,09/23/19 15 Pfizer Covid-19 Vaccine 12+ 02/13/2023,1 06/12/2020,10/21/2020,09/30 Pfizer Covid-19 Vaccine 12+ Bivalent 06/13/2022 Pneumococcal Conjugate PCV 7 04/14/2004, 04/08/2003,02/05/2003,11/19 Tdap 09/22/2014 Varicella 11/29/2007,09/16/2003 Social History Tobacco Use Types Packs/Day Years Used Date Smoking Tobacco: Never Passive Smoke Exposure: Never Smokeless Tobacco: Never Tobacco Cessation:Counseling Given: Not Answered Alcohol Use Standard Drinks/Week Comments Never 0 [...] Orientation Straight 07/14/2022 3: 06 PM EST Last Filed Vital Signs Vital Sign Reading Time Taken Comments Blood Pressure 143/90 03/24/2024 1:17 PM EST Pulse 100 03/24/2024 1:17 PM EST Temperature 36.2 ??C (97.2 ??F) 03/24/2024 1:17 PM ES T Respiratory Rate 20 03/24/2024 1:17 PM EST Oxygen Saturation 98% 03/24/2024 1:17 PM EST Inhaled Oxygen Concentration - - Weight 154 kg (340 lb) 03/24/2024 1:17 PM EST Height 180.3 cm (5' 11 ) 03/24/2024 1:17 PM EST Body Mass Index 47.42 03/24/2024 1:17 PM EST Plan of Treatment Health Maintenance Due Date Last Done Comments Family Planning (PISQ) 2017 Dental Oral Exam 07/03/2022 12/30/2021 Dental X-Ray: Bitewings 12/31/2022 12/30/2021 Dental Prophylaxis 01/15/2023 07/14/2022 COVID-19 Vaccine ( season) 2024 02/13/2023, 06/13/2022, 04/12/2021, Additional history exists Depression Monitoring (PHQ-9) 03/07/2024 09/06/2023, 09/06/2023 Alcohol/Substance Use Screening 09/05/2024 09/06/2023 Chlamydia and Gonorrhea Screening 09/05/2024 Postponed from 2002 (Patient Refused) Depression Screening 09/05/2024 09/06/2023, 09/06/19 SDOH Screening 09/05/2024 09/06/2023 DTaP/Tdap/Td Vaccines (7 - Td or Tdap) 09/22/2024 09/22/2014, 11/29/2007, 04/14/2004, Additional history exists Dental X-Ray: Full Mouth 12/31/2024 12/30/2021 Tobacco Screening 03/24/2025 03/24/2024 Lipid Panel 2028 09/10/2023 Zoster Vaccines (1 of 2) 2052 RSV Patients and Patients Aged 60 years or older (1 - 1-dose 75+ series) 2077 Hepatitis B Vaccines Completed 04/08/2003, 2002, 2002 HIB Vaccines Completed 12/04/2003, 03/15, 02/05/2003, Additional history exists Pneumococcal Vaccine: Pediatrics (0 to 5 Years) and At-Risk Patients (6 to 49) Years) Aged Out 04/14/2004, 04/08/2003, 02/05/2003, Additional history exists No longer eligible based on patient's age to complete this topic IPV Vaccines Completed 11/29/2007, 07/12, 02/05/2003, Additional history exists HPV Vaccines Completed 10/10/2016, 01/13, 09/22/2014 Hepatitis A Vaccines Completed 10/10/2016, 09/23/19 15 Meningococcal Vaccine Completed 02/11/2019, 015 HIV Screening Completed 09/10/2023 Hepatitis C Screening Completed 09/10/2023 Influenza Vaccine Completed 02/04/2024, , 02/08/2022, Additional history exists RSV under 20 months Aged Out No longe r eligible based on patient's age to complete this topic Rotavirus Vaccines Aged Out No longer eligible based on patient's age to complete this topic Procedures Procedure Name Priority Date/Time Associated Diagnosis Comments SARS COV2/INFLUENZA A/B AND RSV RNA QL NAAT Routine 07/22/2024 5:10 PM EDT STREP A NUCLEIC ACID Routine 07/22/2024 5:10 PM EDT HEPATITIS C AB W/REFL TO HCV RNA, QN, PCR Routine 09/10/2023 11:05 AM EDT Physical exam HIV 1/2 ANTIGEN/ANTIBODY, FOURTH GENERATION W/RFL Routine 09/10/2023 11:05 AM EDT Physical exam LIPID PANEL, STANDARD Routine 09/10/2023 11:05 AM EDT Class 3 severe obesity due to excess calories with body mass index (BMI) of 40.0 to 44.9 in adult, unspecified whether serious comorbidity present (CMS/HCC) PROPHYLAXIS - ADULT Routine 07/14/2022 3 :00 PM EST from Last 3 Months or Most Recently Relevant to Health Maintenance Results * Strep A Nucleic Acid (07/22/2024 5:10 PM EDT) IDNOW SERIAL# [id number] [facility] Strep A Nucleic Acid Negative Negative [facility] Comment:All test results mus t [...] LAB MICROBIOLOGY - GENERAL ORDERABLES Final Result [facility] [address] [place] [phone] * SARS-CoV-2 RNA, Influenza A/B, and RSV RNA, Ql NAAT (07/22/2024 5:10 PM EDT) Influenza A PCR NEGATIVE Negative [facility] Influenza B PCR NEGATIVE Negative [facility] Resp Syncy Virus RNA Qual PCR NEGATIVE Negative [facility] SARS COV2 PCR NEGATIVE Negative [facility] Comment:All test results mus t [...] use by authorized laboratories.Testing performed on the [employer] GeneXpert utilizingreal-time RT-PCR.All SARS CoV2 and positive influenza A/B results arereported to [facility]. 07/22/2024 5:10 PM EDT 07/22/2024 5:13 PM EDT us Generic External Data Provider LAB MICROBIOLOGY - GENERAL ORDERABLES Final Result Performing Organization Address [facility]/ZIP Co de Phone Number [facility] [address] [place] [phone] * Hepatitis C Antibody with Reflex to HCV, RNA, Quantitative, Real-Time PCR (09/10/2023 11:05 AM EDT) Hepatitis C Antibody Nonreactive Nonreactive [facility] Comment:Antibodies to HCV no t detected; does not exclude early acuteHCV infection. Blood Venous blood specimen / Unknown 09/10/2023 11:05 AM EDT 09/10/2023 11:05 AM EDT Marley Tomlinson MD LAB BLOOD ORDERABLES Final Re sult Performing Organization Address [facility] Co de Phone Number [facility] [address] [place] [phone] * HIV-1/2 Antigen and Antibodies, Fourth Generation, with Reflexes (09/10/2023 11:05 AM EDT) Pathologist [facility] HIV AB/AG Nonreactive Nonreactive [facility] Comment:HIV-1 p24 Ag and/or HIV-1/HIV-2 Ab not detected.A test result that is nonreactive does not exclude thepossibility of exposure to or infection with HIV-1 and/orHIV-2. Nonreactive results in this assay for individualswith prior exposure to HIV-1 and/or HIV-2 may be due toantigen and antibody levels that are below the limit ofdetection of this assay.The [employer] HIV Ag/Ab Combo assay result andsupplemental assay results should be interpreted inconjunction with the patient's clinical presentation,history and other laboratory results. If the results areinconsistent with clinical evidence, additional testing issuggested to confirm the result. Blood Venous blood specimen / Unknown 09/10/2023 11:05 AM EDT 09/10/2023 11:05 AM EDT us Marley Tomlinson MD LAB BLOOD ORDERABLES Final Re sult Performing Organization Address [facility] Co de Phone Number [facility] [address] [place] [phone] * (ABNORMAL) Lipid Panel, Standard (09/10/2023 11:05 AM EDT) Triglycerides 101 <150 mg/dL [facility] Comment:Desirable Triglyceri de: less than 150 mg/dLBorderline High Triglyceride 150-199 mg/dLHigh Triglyceride: 200-499 mg/dLVery High Triglyceride: greater than or equal to 5OO mg/dL Cholesterol 181 <200 mg/dL [facility] Comment:Desirable Cholestero l: less than 200 mg/dLBorderline High Cholesterol: 200-239 mg/dLHigh Cholesterol: greater than 239 mg/dL LDL Cholesterol Calculated 119(H) <100 mg/dL [facility] Comment:Desirable LDL: less than 100 mg/dLNear Optimal/Above Optimal LDL: 110- 129 mg/dLBorderline High LDL: 130-159 mg/dLHigh LDL: 160-189 mg/dLVery High LDL: greater than or equal to 190 mg/dL HDL Cholesterol 42 >40 mg/dL [facility] Comment:Desirable HDL: great er than 40 mg/dL Note: This HDL assay may give artificially low results in patients with liver disease. Blood Venous blood specimen / Unknown 09/10/2023 11:05 AM EDT 09/10/2023 11:05 AM EDT us Marley Tomlinson MD LAB BLOOD ORDERABLES Final Re sult Performing Organization Address [facility]/ZIP Co de Phone Number [facility] [address] [place] [phone] from Last 3 Months or Most Recently Relevant to Health Maintenance Insurance [place] [facility] MEDICAID STAND ADULT Care Teams Applied Exercise Physiologist Relationship Specialty Start Date End Date Marley Tomlinson MD [address] [place] [phone] PCP - General Family Medicine 10/24/21 Augustine magaña Track Machine Operator RepairerOverlay Plastician 05/28/24
[2024-07-22 19:44] VITALS: BP 146/76; PULSE 81; RESP 18; TEMP 36.9; O2SAT 97
== END 2024-07-22 19:45 | disposition home or self-care (01) ==
PROVIDERS: Emergency Provider Emergency Medicine Emergency Medical Services; PCP Family Medicine
DX: J06.9 Acute upper respiratory infection, unspecified (principal); R05.9 Cough, unspecified; R06.02 Shortness of breath; Z79.899 Other long term (current) drug therapy; Z03.818 Encounter for observation for suspected exposure to other biological agents ruled out
CPT/HCPCS: 0241U; 87651; 99282; 99283

== ENCOUNTER 2024-09-22 15:23 | Emergency (ER) | payer MEDICAID, SELFPAY ==
[2024-09-22 15:28] VITALS: BP 152/97; PULSE 74; RESP 16; TEMP 36.4; O2SAT 97; BMI 43.9
--- NOTE | 2024-09-22 15:28 | ED.GENADULT ---
HPI - General Adult General Chief complaint: Abdominal Pain Stated complaint: Abd pain, diarrhea, fatigue Time Seen by Provider: 09/22/24 16:05 Source: patient, RN notes reviewed and old records reviewed Mode of arrival: ambulatory Limitations: no limitations History of Present Illness ED Provider: Marzena Elizondo PA-C HPI narrative: 24-year-old male with a history of obesity, ADHD, chronic abdominal pain, insomnia who presents to the ER for evaluation of abdominal pain, diarrhea and fatigue that started at 11:00 last night. Left-sided pain since last night, states is constant, denies associated N/V. Denies any rectal pain, pressure or blood in stool. Normal bowel and bladder, PO intake also normal since then. Endorses history of IBS indicated this felt differently than previous episodes. Onset (ago): hour(s) Location: abdomen and left Radiation: non-radiation Severity: moderate Severity scale (1-10): 5 Quality: aching Pain Consistency: constant Relieving factors: none Exacerbating factors: none Associated symptoms: denies other symptoms Treatments prior to arrival: none Related Data Home Medications ?Medication ?Instructions ?Recorded ?Confirmed fluticasone propionate 50 1 - 2 spray intranasal DAILY PRN 01/23/22 05/26/22 mcg/actuation nasal spray,suspension xrvbvrf-vjjcsorsezdij-aveqkemo 250 2 tab PO Q8H PRN headache 05/26/22 05/26/22 mg-250 mg-65 mg tablet (Migraine Relief) methylcellulose (laxative) 500 mg 500 mg PO BID PRN 05/26/22 05/26/22 tablet (Citrucel) quetiapine 25 mg tablet 12.5 mg PO BID 05/26/22 05/26/22 trazodone 100 mg tablet 100 mg PO BEDTIME 05/26/22 05/26/22 Previous Rx's ?Medication ?Instructions ?Recorded gabapentin 100 mg capsule 100 - 300 mg (1 - 3 x 100 mg) PO 05/26/22 BEDTIME 30 days #90 caps ibuprofen 600 mg tablet 600 mg PO BID PRN pain 30 days #60 05/26/22 tabs magnesium oxide 400 mg (241.3 mg 400 mg PO BEDTIME 30 days #30 tabs 05/26/22 magnesium) tablet naratriptan 2.5 mg tablet 1.25 - 2.5 mg (0.5 - 1 x 2.5 mg) 05/26/22 PO .COMPLEX PRN migraine headache 30 days #12 tabs riboflavin (vitamin B2) 400 mg 400 mg PO DAILY 30 days #30 tabs 05/26/22 tablet fluticasone furoate 27.5 1 spray intranasal DAILY #5.9 mL 01/11/23 mcg/actuation nasal spray,suspension aamefuku-ylpakx-AC-thonzonm 3.3 1 appl otic (ears) QID #10 mL 01/11/23 mg-3 mg-10 mg-0.5 mg/mL ear drops,susp (Cortisporin-TC) azithromycin 250 mg tablet See Rx Instructions PO .COMPLEX #6 07/22/24 tabs prednisone 20 mg tablet 40 mg (2 x 20 mg) PO DAILY #10 tabs 07/22/24 dicyclomine 10 mg capsule 10 mg PO TID PRN abdominal pain 09/22/24 #10 caps Allergies Allergy/AdvReac Type Severity Reaction Status Date / Time Seasonal Allergies Allergy Intermediate Runny Nose Verified 09/22/24 15:31 Review of Systems Review of Systems: Yes all other systems are reviewed and are negative PMFSH Past Medical History Medical History ADHD Insomnia Obesity Surgical History History of placement of ear tubes Hx of toe surgery Hx of wisdom tooth extraction Family History Family History Paternal Grandfather Diabetes Hypertension Mother Headache Seizures Migraine-cluster headache syndrome Myocardial infarction Hypertension Social History Social History Household Members: Family Household Members Other:: Mother, Sisters, brothers, grandparent, and 3 dogs Alcohol intake: never Patient Tobacco Use Status: Never used Tobacco Smoked in Last 30 Days: No Use of substances other than those prescribed or required for medical reasons: No Advance Directives: No Advance Directives Information Provided: No Do you have a plan to hurt others: No Plan Current occupational status: unemployed Physical Exam ED Vital Signs: Vital Signs - 24 hr 09/22/24 15:28 09/22/24 16:01 Temperature 97.5 F 97.9 F Pulse Rate 74 63 Respiratory Rate 16 18 Blood Pressure 152/97 H 128/87 Pulse Oximetry 97 96 Oxygen Delivery Method Room Air Room Air BMI result Body Mass Index 43.9 Appearance: Alert. Oriented X3. No acute distress. Head: normocephalic, atraumatic. Eyes: Pupils equal, round and reactive to light. ENT: Pharynx normal. No tonsillar swelling or exudate. Neck: Normal inspection. Neck supple. CVS: Normal heart rate and rhythm. Pulses normal. Respiratory: No respiratory distress. Breath sounds normal. Abdomen: Soft, mild tenderness to deep palpation, no guarding, not rebounding. +BS x4 Skin: Skin warm and dry. Normal skin color. Normal skin turgor. No rashes. Extremities: No lower extremity edema. No joint swelling. Neuro/psych: Oriented X 3. No motor deficit. No sensory deficit. Normal speech and cognition. Course Course Course Narrative: RME, this is a rapid medical exam performed by Elvin Zhao please refer to primary provider for complete H&P- 24 year old male presents for evaluation of abdominal pain, diarrhea and dizziness. Symptoms started last night and worsened when he woke up. Plan for labs, UA. Denies previous abdominal surgeries. Medications Administered Discontinued Medications Generic Name Dose Route Start Last Admin Trade Name Freq PRN Reason Stop Dose Admin Acetaminophen 975 mg 09/22/24 16:35 09/22/24 17:02 Acetaminophen 325 Mg Tablet PO 09/22/24 16:36 975 mg ONCE ONE Administration Dicyclomine HCl 10 mg 09/22/24 16:35 09/22/24 17:02 Dicyclomine Hcl 10 Mg Capsule PO 09/22/24 16:36 10 mg ONCE ONE Administration Ketorolac Tromethamine 30 mg 09/22/24 16:35 09/22/24 17:02 Ketorolac Tromethamine 30 Mg/Ml Vial IM 09/22/24 16:36 30 mg ONCE ONE Administration Medical Decision Making Medical Decision Making MDM Narrative: 24 yo male non-toxic appearing, presents with left-sided abdominal pain, diarrhea, and fatigue since 11pm last night after having pork and rice. Pain is moderate, not radiating, denies any fever, night sweats, or rectal bleeding. Non-acute abdomen without any guarding, or rigidity. No associated N/V. Low suspicion for acute appendicitis, colonic abscess. May have some mild diverticulitis, imaging historically is reassuring (has had multiple CT scans), new imaging not required, orders placed for toradol, bentyl, and acetaminophen. pain improved after meds. tolerating PO well. exam remains benign on re-evaluation. comfortable with discharge home with conservative management. return precautions discussed Differential Diagnosis Differential Diagnoses: The differential diagnosis associated with the presentation includes Gastroenteritis, cholycystitis, diverticulitis, inflammatory bowel disease, IBS, food poisoning Admission/Observation Consideration of admission/observation: Escalation of care including admission/observation considered Lab Data MDM Lab Attestation statement: I reviewed the patient's lab results. Thrombocytosis, mild elevation of LFT's which appear to be chronic 09/22/24 15:33 09/22/24 15:33 Labs: Lab Results 09/22/24 09/22/24 Range/Units 15:33 16:15 WBC 9.3 (4.8-10.8) X10*3/uL RBC 5.28 (4.60-5.80) X10*6/uL Hgb 15.6 (14.0-18.0) g/dl Hct 46.4 (42.0-52.0) % MCV 87.9 (80.0-98.0) fL MCH 29.5 (27.0-33.0) pg MCHC 33.6 (31.0-36.0) g/dl RDW 13.2 (11.0-16.0) % Plt Count 409 H D (160-400) X10*3/uL MPV 9.5 (9.4-12.4) fL Immature Gran % (Auto) 0.3 (0.0-0.4) % Neut % (Auto) 70.2 (45-73) % Lymph % (Auto) 18.2 L (20-40) % [place] % (Auto) 9.1 (2-11) % Eos % (Auto) 1.6 (0-4) % Baso % (Auto) 0.6 (0-2) % Lymph # (Auto) 1.7 (1.2-4.9) X10*3/uL [place] # (Auto) 0.8 (0.1-1.2) X10*3/uL Eos # (Auto) 0.2 (0.0-0.4) X10*3/uL Baso # (Auto) 0.1 (0.0-0.2) X10*3/uL Abs Immat Gran (auto) 0.03 (0.00-0.03) X10*3/uL Absolute Neuts (auto) 6.5 (2.0-8.3) x10*3/uL Absolute Nucleated RBC 0.000 (0.0-0.012) X10*3/uL Nucleated RBC % (auto) 0.0 (0.0-0.2) /100WBC Sodium 138 (135-145) mmol/L Potassium 4.6 (3.3-5.1) mmol/L Chloride 105 (96-108) mmol/L Carbon Dioxide 23 (22-29) mmol/L Anion Gap 15 (12-20) BUN 16 (9-16) mg/dL Creatinine 0.87 (0.5-1.4) mg/dL Estim Creat Clear Calc 198.3 Estimated GFR > 60 Random Glucose 87 (60-115) mg/dL Calcium 9.6 (8.4-10.2) mg/dL Magnesium 2.0 (1.6-2.6) mg/dL Total Bilirubin 0.7 (0.0-1.0) mg/dL AST 45 H (5-37) U/L ALT 70 H (0-40) U/L Alkaline Phosphatase 70 (39-117) U/L Total Protein 8.3 H (6.5-8.0) g/dL Albumin 4.5 (3.5-5.0) g/dL Lipase 11 (8-78) U/L Urine Color Dark Yellow Urine Appearance Clear Urine pH 5.5 (5.0-9.0) Ur Specific [place] >= 1.030 H (1.005-1.025) Urine Protein 30 (1+) H (Neg-Trace) mg/dL Urine Glucose (UA) Negative (Negative) mg/dL Urine Ketones Trace (Negative) mg/dL Urine Blood Negative (Negative) Urine Nitrite Negative (Negative) Ur Leukocyte Esterase Negative (Negative) Urine RBC 0-2 (0-2) /HPF Urine WBC 0-5 (0-5) /HPF Ur Squamous Epith Cells 0-2 (0-2) /HPF Urine Bacteria None Seen (None Seen) Hyaline Casts 0-2 (0-2) /LPF External Record Review External record reviewed: Office record, Outpatient record, Prior outpatient labs and Prior outpatient radiology Tests considered The following testing was considered but not selected: CT abd. considered but abdomen is soft, not acute, +BS x 4 Prescription Management I considered prescription management with: Pain Medication and Antibiotic Chronic Conditions Patient?s care impacted by: Other chronic abdominal pain Critical Care Time Critical Care Time Critical Care Time: No Discharge Plan Discharge Clinical Impression: Abdominal pain Qualifiers: Abdominal location: left lower quadrant Qualified Code(s): R10.32 - Left lower quadrant pain Patient Disposition: Home, Self-Care Instructions: Abdominal Pain (ED) Additional Instructions: You lab workup today was unremarkable. Your urine test was negative for infection. Your symptoms are most likely due to the pork you ate last night. Treatment is supportive care, symptoms usually resolve on their own in 48-72 hours. Recommend rest and plenty of oral hydration. Stick to a bland diet like soup and toast while you are not feeling well. Take the prescribed medication as needed for abdominal pain. Recommend over the counter Pepto Bismol or Imodium for upset stomach and diarrhea. Follow up with your doctor and GI provider as needed. If you develop new or worsening symptoms call 911 or come back to the ER for further evaluation. Prescriptions: New dicyclomine 10 mg capsule 10 mg PO TID PRN (Reason: abdominal pain) Qty: 10 0RF No Action fluticasone furoate 27.5 mcg/actuation spray,suspension 1 spray intranasal DAILY Qty: 5.9 0RF Rx Instructions: into each nostril Cortisporin-TC 3.3-3-10-0.5 mg/mL drops,suspension 1 appl otic (ears) QID Qty: 10 0RF Rx Instructions: 7 days azithromycin 250 mg tablet See Rx Instructions .ROUTE .COMPLEX Qty: 6 0RF Rx Instructions: For 250 mg dose pack: take 500 mg today (day 1), then 250 mg for 4 days (days 2-5) prednisone 20 mg tablet 40 mg PO DAILY Qty: 10 0RF fluticasone propionate 50 mcg/actuation spray,suspension 1 - 2 spray intranasal DAILY PRN trazodone 100 mg tablet 100 mg PO BEDTIME Citrucel 500 mg tablet 500 mg PO BID PRN quetiapine 25 mg tablet 12.5 mg PO BID Migraine Relief 250-250-65 mg tablet 2 tab PO Q8H PRN (Reason: headache) riboflavin (vitamin B2) 400 mg tablet 400 mg PO DAILY 30 Days Qty: 30 6RF magnesium oxide 400 mg (241.3 mg magnesium) tablet 400 mg PO BEDTIME 30 Days Qty: 30 6RF Rx Instructions: may hold for loose stools naratriptan 2.5 mg tablet 1.25 - 2.5 mg PO .COMPLEX PRN (Reason: migraine headache) 30 Days Qty: 12 3RF Rx Instructions: 1.25 - 2.5 mg orally, msy repeat in 2 hrs, may take w/ Ibuprofen, prn ibuprofen 600 mg tablet 600 mg PO BID PRN (Reason: pain) 30 Days Qty: 60 3RF gabapentin 100 mg capsule 100 - 300 mg PO BEDTIME 30 Days Qty: 90 3RF Referrals: [facility] [Provider Group] (acute on chronic abdominal pains) Marley Tomlinson MD [Primary Care Provider] - Stand Alone Forms: Work/School Release Print Language: Turkish
[2024-09-22 15:38] LABS: MANUAL DIFF FLAG NO
[2024-09-22 15:42] LABS: Basophils Absolute Auto 0.1 X10*3/uL (0.0-0.2); Basophils Percent Auto 0.6 % (0-2); Eosinophils Absolute Auto 0.2 X10*3/uL (0.0-0.4); Eosinophils Percent Auto 1.6 % (0-4); Hematocrit 46.4 % (42.0-52.0); Hemoglobin 15.6 g/dl (14.0-18.0); Imm Gran Abs Auto 0.03 X10*3/uL (0.00-0.03); Imm Gran Pct Auto 0.3 % (0.0-0.4); Lymphocytes Absolute Auto 1.7 X10*3/uL (1.2-4.9); Lymphocytes Percent Auto 18.2 % (20-40); Mean Corpuscular HGB Conc 33.6 g/dl (31.0-36.0); Mean Corpuscular Hemoglobin 29.5 pg (27.0-33.0); Mean Corpuscular Volume 87.9 fL (80.0-98.0); Mean Platelet Volume 9.5 fL (9.4-12.4); Monocytes Absolute Auto 0.8 X10*3/uL (0.1-1.2); Monocytes Percent Auto 9.1 % (2-11); Neutrophils Absolute Auto 6.5 x10*3/uL (2.0-8.3); Neutrophils Percent Auto 70.2 % (45-73); Platelet Count 409 X10*3/uL (160-400); Red Blood Count 5.28 X10*6/uL (4.60-5.80); Red Cell Distribution Width 13.2 % (11.0-16.0); White Blood Count 9.3 X10*3/uL (4.8-10.8)
--- OUTSIDE RECORDS SUMMARY | 2024-09-22 15:44 | XMS_ITS | Encounter Summary ---
Author Organization [employer] Address [address] [place] [address] 7t [place] [address] Care Team Providers Care Senior Software Architect Name Role Phone Marley Tomlinson MD Primary Care Provider [phone] Encounter Details Date Type Department Care Team ([facility] st Contact Info) Description 04/09/2024 Orders Only [facility] MED & PEDS [address] [place], [place] [id number] Provider, MD Emile Social History Tobacco Use Types Packs/Day Years [...] as of this encounter Plan of Treatment Upcoming Encounters Date Type Department Care Team (Late st Contact Info) Description 11/10/2024 2:15 PM EDT Office Visit [facility] MED & PEDS [address] [place], [place] [phone] Marley Tomlinson MD [address] [place] [address] documented as of this encounter Procedures Procedure [...] documented as of this encounter Care Teams Senior Software Architect Relationship Specialty Start Date End Date Marley Tomlinson MD [address] [place] [address] PCP - General Family Medicine 10/24/21 Augustine magaña Body WirerSlate Splitting Supervisor 05/28/24 documented as of this encounter
--- OUTSIDE RECORDS SUMMARY | 2024-09-22 15:44 | XMS_ITS | Encounter Summary ---
Author Organization [employer] Address [address] [place] [address] 7 [place] [address] Care Team Providers Care City Planning Teacher Name Role Phone Marley Tomlinson MD Primary Care Provider [phone] Reason for Visit * Reason Comments Med Refill Encounter Details Date Type Department Care Team ([facility] Contact Info) Description 02/23/2024 Refill [facility] CHC MED & PEDS [address] [place] [address] Marley Tomlinson MD [address] [place] [address] Social History Tobacco Use Types Packs/Day Years [...] Description 11/10/2024 2:15 PM EDT Office Visit [facility] MED & PEDS [address] [place] [address] Marley Tomlinson MD [address] [place] [address] documented as of this encounter Visit Diagnoses Not on filedocumented in this encounter Additional Health Concerns Assessment Noted Time PHQ-9 Depression Total Score: 13 024 2:07 PM EDT documented as of this encounter Care Teams City Planning Teacher Relationship Specialty Start Date End Date Marley Tomlinson MD [address] [place] [address] PCP - General Family Medicine 10/24/21 Augustine magaña Gang Punch OperatorRecreation Programmer 05/28/24 documented as of this encounter
--- OUTSIDE RECORDS SUMMARY | 2024-09-22 15:44 | XMS_ITS | Encounter Summary ---
Author Organization [employer] Address [address] [place] [address] [address] [place] [address] Care Team Providers Care Driver License Reviewing Officer Name Role Phone Marley Tomlinson MD Primary Care Provider [phone] Encounter Details Date Type Department Care Team (Latest Contact Info) Description 12/30/[address] [facility] CONVERSIONS Dental, Provider, DDS Social History Tobacco [...] Description 11/10/2024 2:15 PM EDT Office Visit [facility] CHC MED & PEDS [address] [place] [address] Marley Tomlinson MD [address] [place] [address] documented as of this encounter Visit Diagnoses Not on filedocumented in this encounter Care Teams Driver License Reviewing Officer Relationship Specialty Start Date End Date Marley Tomlinson MD [address] [place] [address] PCP - General Family Medicine 10/24/21 Augustine magaña Eyewear Manufacturing TechBioprocess Engineer 05/28/24 documented as of this encounter
--- OUTSIDE RECORDS SUMMARY | 2024-09-22 15:44 | XMS_ITS | Encounter Summary ---
Author Organization [employer] Address [address] [facility] 7t [place] [address] Care Team Providers Care Procurement Manager Name Role Phone Marley Tomlinson MD Primary Care Provider [phone] Encounter Details Date Type Department Care Team ([facility] st Contact Info) Description 12/17/2023 Telephone [facility] MEDICINE [address] [place] [address] Marley Tomlinson MD [address] [place], [place] [phone] Social History Tobacco Use Types Packs/Day Years [...] Didi Art - 12/17/2023 9:36 AM EDT [facility] documented in this encounter Plan of Treatment Upcoming Encounters Date Type Department Care Team (Late st Contact Info) Description 11/10/2024 2:15 PM EDT Office Visit [facility] MED & PEDS [address] [place] [address] Marley Tomlinson MD [address] [place] [address] documented as of this encounter Visit Diagnoses Not on filedocumented in this encounter Additional Health Concerns Assessment Noted Time PHQ-9 Depression Total Score: 13 024 2:07 PM EDT documented as of this encounter Care Teams Procurement Manager Relationship Specialty Start Date End Date Marley Tomlinson MD [address] [place] [address] PCP - General Family Medicine 10/24/21 Augustine magaña Blender Machine OperatorForest Fire Lookout 05/28/24 documented as of this encounter
--- OUTSIDE RECORDS SUMMARY | 2024-09-22 15:44 | XMS_ITS | Encounter Summary ---
Author Organization [employer] Address [address] [place] [address] 7 [place] [address] Care Team Providers Care High Pressure Cleaner Name Role Phone Marley Tomlinson MD Primary Care Provider [phone] Reason for Visit * Reason Comments Med Refill Encounter Details Date Type Department Care Team ([facility] Contact Info) Description 09/17/2024 Refill [facility] CHC MED & PEDS [address] [place] [address] Flor Meadows MD [address] [place] [address] Social History Tobacco Use Types Packs/Day Years [...] Description 11/10/2024 2:15 PM EDT Office Visit [facility] MED & PEDS [address] [place] [address] Marley Tomlinson MD [address] [place] [address] documented as of this encounter Visit Diagnoses Not on filedocumented in this encounter Additional Health Concerns Assessment Noted Time PHQ-9 Depression Total Score: 13 024 2:07 PM EDT documented as of this encounter Care Teams High Pressure Cleaner Relationship Specialty Start Date End Date Marley Tomlinson MD [address] [place] [address] PCP - General Family Medicine 10/24/21 Augustine magaña Carpet Loom FixerCooler Man 05/28/24 documented as of this encounter
--- OUTSIDE RECORDS SUMMARY | 2024-09-22 15:44 | XMS_ITS | Encounter Summary ---
Author Organization [employer] Address [address] [place] [address] 7 [place] [address] Care Team Providers Care Acid Wash Operator Name Role Phone Marley Tomlinson MD Primary Care Provider [phone] Reason for Visit * Reason Comments Med Refill Encounter Details Date Type Department Care Team (Late Contact Info) Description 01/26/2023 Refill [facility] CHC MED & PEDS [address] [place] [address] Marley Tomlinson MD [address] [place] [address] Developmental academic disorder Social History Tobacco Use [...] Encounters Date Type Department Care Team (Late Contact Info) Description 11/10/2024 2:15 PM EDT Office Visit [facility] CHC MED & PEDS [address] [place] [address] Marley Tomlinson MD [address] [place] [address] documented as of this encounter Visit Diagnoses Diagnosis Developmental academic disorder Unspecified delay in development documented in this encounter Additional Health Concerns Assessment Noted Time PHQ-9 Depression Total Score: 7 05/17/19 23 9:49 AM EST documented as of this encounter Care Teams Acid Wash Operator Relationship Specialty Start Date End Date Marley Tomlinson MD [address] [place] [address] PCP - General Family Medicine 10/24/21 Augustine magaña Operator Command Support SystemsProfessional Builder 05/28/24 documented as of this encounter
--- OUTSIDE RECORDS SUMMARY | 2024-09-22 15:44 | XMS_ITS | Encounter Summary ---
Author Organization [employer] Address [address] [place] [address] [address]t [place] [address] Care Team Providers Care Customer Service Trainer Name Role Phone Marley Tomlinson MD Primary Care Provider [phone] Encounter Details Date Type Department Care Team (Latest Contact Info) Description 09/18/2024 Travel Social History Tobacco Use Types Packs/Day Years [...] Description 11/10/2024 2:15 PM EDT Office Visit [facility] MED & PEDS [address] [place] [address] Marley Tomlinson MD [address] [place] [address] documented as of this encounter Visit Diagnoses Not on filedocumented in this encounter Additional Health Concerns Assessment Noted Time PHQ-9 Depression Total Score: 13 09/05/ 024 2:07 PM EDT documented as of this encounter Care Teams Customer Service Trainer Relationship Specialty Start Date End Date Marley Tomlinson MD [address] [place] [address] PCP - General Family Medicine 10/24/21 Augustine magaña Crime Prevention WorkerHead Sulfide Operator 05/28/24 documented as of this encounter
--- OUTSIDE RECORDS SUMMARY | 2024-09-22 15:45 | XMS_ITS | Encounter Summary ---
Author Organization [employer] Address [address] [place] [address] 7 [place] [address] Care Team Providers Care Detective Precinct Name Role Phone Marley Tomlinson MD Primary Care Provider [phone] Reason for Visit * Reason Onset Date Comments Med Refill 09/08/2024 Encounter Details Date Type Department Care Team ([facility] st Contact Info) Description 09/08/2024 Telephone [facility] MEDICINE [address] [place] [address] Marley Tomlinson MD [address] [place] [address] Med Refill Social History Tobacco Use Types Packs/Day Years [...] encounter Miscellaneous Notes * Telephone Encounter - Donna Wilkerson LPN - 2024 10:22 AM EDT Medication sent to [facility] on 09/05/24 with 2 refills. * Telephone Encounter - Jus Blanco - 09/08/2024 12:29 PM EDT TC from pt requesting medication refill. Medications needing refill : benzoyl peroxide ([facility] Advanced 3-in-1 Cleanser) 5 % external wash To be sent to: [facility] [address] [place] [address] documented in this encounter Plan of Treatment Upcoming Encounters Date Type Department Care Team (Late st Contact Info) Description 11/10/2024 2:15 PM EDT Office Visit [facility] MED & PEDS [address] [place] [address] Marley Tomlinson MD [address] [place] [address] documented as of this encounter Visit Diagnoses Not on filedocumented in this encounter Additional Health Concerns Assessment Noted Time PHQ-9 Depression Total Score: 13 09/05/ 024 2:07 PM EDT documented as of this encounter Care Teams Detective Precinct Relationship Specialty Start Date End Date Marley Tomlinson MD [address] [place] [address] PCP - General Family Medicine 10/24/21 Augustine magaña Mortgage ConsultantElectron Beam Welder 05/28/24 documented as of this encounter
--- OUTSIDE RECORDS SUMMARY | 2024-09-22 15:45 | XMS_ITS | Encounter Summary ---
Author Organization [employer] Address [address] [place] [address] 7 [place] [address] Care Team Providers Care Natural Gas Engineer Name Role Phone Marley Tomlinson MD Primary Care Provider [phone] Reason for Visit * Reason Comments Headache Encounter Details Date Type Department Care Team ([facility] Contact Info) Description 09/18/2024 11:15 AM EDT Office Visit [facility] [address] [place] [address] Maldonado Linda MD [address] [place] [address] Chronic migraine with aura and with status migrainosus, not intractable (Primary Dx) Social History Tobacco Use Types Packs/Day Years [...] PM EST documented as of this encounter Last Filed Vital Signs Vital Sign Reading Time Taken Comments Blood Pressure 122/75 09/18/2024 10:53 AM EDT Pulse 64 09/18/2024 10:53 AM EDT Temperature 36.7 ??C (98.1 ??F) 09/18/2024 10:53 AM E DT Respiratory Rate 20 09/18/2024 10:53 AM EDT Oxygen Saturation 98% 09/18/2024 10:53 AM EDT Inhaled Oxygen Concentration - - Weight 150 kg (331 lb) 09/18/2024 10:53 AM EDT Height 180.3 cm (5' 11 ) 09/18/2024 10:53 AM EDT Body Mass Index 46.17 09/18/2024 10:53 AM EDT documented in this encounter Progress Notes * Maldonado Linda MD - 09/18/2024 11:15 AM EDT SUBJECTIVE Terence Soto is a 24 y.o. male who presents for Headache. Headache This is a recurrent problem. The current episode started in the past 7 days. The pain is located inthe Bilateral region. The quality of the pain is described as boring. The pain is at a severity of 5/10. Pertinent negatives include no abdominal pain, abnormal behavior, anorexia, back pain, blurredvision, coughing, facial sweating, fever, hearing loss, insomnia, loss of balance, scalp tenderness, seizures, sinus pressure, sore throat or swollen glands. Several years history of migraine headache associated with photophobia. Patient came into the office today because of persistent daily headache for the last 3 to 4 days despite the use of nekj-jsi-qnjihei NSAIDs. Denies blurry vision. No fever/stiffness of the neck. Patient Active Problem List Diagnosis Developmental academic disorder Migraine Obesity Memory deficit Normal physical examination Poor historian Abdominal pain with vomiting A vague feeling of discomfort Paronychia of left thumb Lumbar back pain Cough Allergies Allergen Reactions Pollen Extract Other reaction(s): RUNNY NOSE, ITCHY EYES Current Outpatient Medications on File Prior to Visit Medication Sig Dispense Refill acetaminophen (Tylenol) 500 MG tablet Take 2 tablets (1,000 mg) by mouth every 6 (six) hours if needed for moderate pain or fever for up to 25 doses. 50 tablet 0 benzoyl peroxide ([employer] Advanced 3-in-1 Cleanser) 5 % external wash Apply topically 2 times daily. 118 mL 2 cetirizine (ZyrTEC) 10 MG tablet Take 1 tablet (10 mg) by mouth Once per day. 30 tablet 11 cholecalciferol (Vitamin D-3) 50 MCG (2000 UT) capsule Take by mouth Once per day. fluticasone (Flonase) 50 MCG/ACT nasal spray INHALE 1 - 2 SPRAYS IN EACH NOSTRIL ONCE DAILY 48 g 2 ibuprofen 400 MG tablet Take 1 tablet (400 mg) by mouth every 6 (six) hours if needed for moderate pain or fever for up to 30 doses. 30 tablet 0 pantoprazole (ProtoNix) 40 MG EC tablet TAKE ONE TABLET DAILY BEFORE BREAKFAST, DO NOT BREAK, CRUSH, DISSOLVE OR CHEW 90 tablet 0 QUEtiapine (SEROquel) 50 MG tablet TAKE 1 TABLET BY MOUTH AT BEDTIME 30 tablet 1 [DISCONTINUED] fasjdbu-kxjiboxbfnwne-puqinhsl (Excedrin Migraine) 250-250-65 MG tablet Take 2 tablets by mouth every 8 (eight) hours if needed for headaches. [DISCONTINUED] fluticasone (Flonase) 50 MCG/ACT nasal spray INHALE 1 - 2 SPRAYS IN EACH NOSTRIL ONCE DAILY 16 g 2 No current facility-administered medications on file prior to visit. Review of Systems Constitutional: Negative for fever. HENT: Negative for hearing loss, sinus pressure and sore throat. Eyes: Negative for blurred vision. Respiratory: Negative for cough, choking and shortness of breath. Gastrointestinal: Negative for abdominal pain and anorexia. Musculoskeletal: Negative for back pain. Neurological: Positive for headaches. Negative for seizures and loss of balance. Psychiatric/Behavioral: The patient does not have insomnia. OBJECTIVE Vitals: 09/18/24 1053 BP: 122/75 BP Location: Left arm Patient Position: Sitting BP Cuff Size: Adult long Pulse: 64 Resp: 20 Temp: 98.1 ??F (36.7 ??C) TempSrc: Oral SpO2: 98% Weight: 331 lb (150 kg) Height: 5' 11 (1.803 m) Physical Exam Constitutional: General: He is not in acute distress. Appearance: Normal appearance. He is not ill-appearing, toxic-appearing or diaphoretic. Cardiovascular: Rate and Rhythm: Normal rate. Pulmonary: Effort: Pulmonary effort is normal. Neurological: General: No focal deficit present. Mental Status: He is alert and oriented to person, place, and time. Cranial Nerves: No cranial nerve deficit. Sensory: No sensory deficit. Motor: No weakness. Coordination: Coordination normal. Gait: Gait normal. Deep Tendon Reflexes: Reflexes normal. Psychiatric: Mood and Affect: Mood normal. Assessment/Plan Assessment/Plan Diagnoses and all orders for this visit: Chronic migraine with aura and with status migrainosus, not intractable Comments: Educated on this condition Excedrin Migraine not to use more than 3 times a week Trial of propranolol as a preventative measure. Patient made aware to contact the office immediately in case he has dizziness and he was also advised to change positions slowly to let his body adjustto the propranolol. He is to start 20 mg 2 times a day if the headaches are controlled he would remain on that dose. If not he can attempt after 1 week to increase the dose to 20 mg 3 times a day. Orders: - propranolol (Inderal) 20 MG tablet; Take 1 tablet (20 mg) by mouth 3 times daily. - waxcmxe-botqoyypjewuk-zviyhqqu (Excedrin Migraine) 250-250-65 MG tablet; Take 2 tablets by mouth every 8 (eight) hours if needed for headaches. documented in this encounter Plan of Treatment Upcoming Encounters Date Type Department Care Team (Late st Contact Info) Description 11/10/2024 2:15 PM EDT Office Visit [facility] [address] [place] [address] Marley Tomlinson MD [address] [place] [address] documented as of this encounter Visit Diagnoses Diagnosis Chronic migraine with aura and with status migrainosus, not intractable- Primary documented in this encounter Additional Health Concerns Assessment Noted Time PHQ-9 Depression Total Score: 13 09/05/ 024 2:07 PM EDT documented as of this encounter Care Teams Natural Gas Engineer Relationship Specialty Start Date End Date Marley Tomlinson MD [address] [place] [address] PCP - General Family Medicine 10/24/21 Augustine magaña [employer] Production TechnicianCocoa Bean Roaster 05/28/24 documented as of this encounter
--- OUTSIDE RECORDS SUMMARY | 2024-09-22 15:45 | XMS_ITS | Clinical Summary ---
Author Organization [employer] Address [address] [place] [address] 7 [place] [address] Care Team Providers Care Service Observer Chief Name Role Phone Marley Tomlinson MD Primary Care Provider [phone] Allergies Active Allergy Reactions Criticality Noted Date Comments Pollen Extract 05/26/2022 Other reaction(s): RUNNY NOSE, ITCHY EYES Medications cholecalciferol (Vitamin D-3) 50 MCG (1999 UT) capsule Take by mouth Once per day. 07/13/19 24 Active acetaminophen (Tylenol) 500 MG tablet Take [...] OR CHEW 90 tablet 06/06/19 25 Active benzoyl peroxide ([employer] Advanced 3-in-1 Cleanser) 5 % external washIndications :Acne vulgaris Apply topically 2 times daily. 118 mL 2 09/06/19 25 026 Active fluticasone (Flonase) 50 MCG/ACT nasal spray INHALE 1 - 2 SPRAYS IN EACH NOSTRIL ONCE DAILY 48 g 2 09/19/19 25 Active propranolol (Inderal) 20 MG tabletIndicatio ns:Chronic migraine with aura and with status migrainosus, not intractable Take 1 tablet (20 mg) by mouth 3 times daily. 90 tablet 11 09/19/19 25 026 Active aspirin-acetami nophen-caffeine (Excedrin Migraine) 250-250-65 MG tabletIndicatio ns:Chronic migraine with aura and with status migrainosus, not intractable Take 2 tablets by mouth every 8 (eight) hours if needed for headaches. 30 tablet 1 09/19/19 25 Active aspirin-acetami nophen-caffeine (Excedrin Migraine) 250-250-65 MG tablet Take 2 tablets by mouth every 8 (eight) hours if needed for headaches. 02/09/20 22 025 Discontinued(Re order (will not trigger notification to Pharmacy)) benzoyl peroxide ([employer] Advanced 3-in-1 Cleanser) 5 % external wash Apply topically 2 times daily. 118 mL 2 09/06/19 24 025 Discontinued(Re order (will not trigger notification to Pharmacy)) fluticasone (Flonase) 50 MCG/ACT nasal spray INHALE 1 - 2 SPRAYS IN EACH NOSTRIL ONCE DAILY 16 g 2 06/24/19 25 025 Discontinued Active Problems Problem Noted Date [...] Encounters Date Type Department Care Team Description 09/18/2024 11:15 AM EDT Office Visit [facility] [address] [place] [address] Maldonado Linda MD Chronic migraine with aura and with status migrainosus, not intractable (Primary Dx) 09/18/2024 Travel 09/17/2024 Refill [facility] [address] [place] [address] Flor Meadows MD 09/16/2024 Telephone [facility] [address] [place] [address] Marley Tomlinson MD Nurse Triage 09/08/2024 Telephone [facility] [address] [place] [address] Marley Tomlinson MD Med Refill 09/05/2024 Refill [facility] [address] [place] [address] Marley Tomlinson MD Acne vulgaris 07/25/2024 Population Health Risk Score [facility] ([facility]) Department [address] [id number] Provider, Population Health Generic 07/22/2024 Orders Only GENERIC EXTERNAL DATA DEPARTMENT Provider, Generic External Data 06/27/2024 Telephone [facility] [address] [place] [address] Marley Tomlinson MD Nurse Triage from Last [...] Mass Index 46.17 09/18/2024 10:53 AM EDT Plan of Treatment Upcoming Encounters Date Type Department Care Team (Late st Contact Info) Description 11/10/2024 2:15 PM EDT Office Visit [facility] [address] [place] [address] Marley Tomlinson MD [address] [place] [address] Health Maintenance Due Date Last Done Comments Chlamydia and Gonorrhea Screening 2002 Alcohol/Substance Use Screening 2014 Family Planning (PISQ) 2017 Dental Oral Exam 07/03/2022 12/30/2021 Dental X-Ray: Bitewings 12/31/2022 12/30/2021 Dental Prophylaxis 01/15/2023 07/14/2022 COVID-19 Vaccine ( season) 2024 02/13/2023, 06/13/2022, 04/12/2021, Additional history exists Depression Screening 09/05/2024 09/06/2023, 09/06/19 24 SDOH Screening 09/05/2024 09/06/2023 DTaP/Tdap/Td Vaccines (7 - Td or Tdap) 09/22/2024 09/22/2014, 11/29/2007, 04/14/2004, Additional history exists Dental X-Ray: Full Mouth 12/31/2024 12/30/2021 Tobacco Screening 09/18/2025 09/18/2024 Lipid Panel 2028 09/10/2023 Zoster Vaccines (1 [...] Acid (07/22/2024 5:10 PM EDT) [employer]NOW SERIAL# [id number] [facility] Strep A Nucleic Acid Negative Negative [facility] Comment:All test results mus t [...] LAB MICROBIOLOGY - GENERAL ORDERABLES Final Result [facility] [address] [place] [phone] * SARS-CoV-2 RNA, Influenza A/B, and RSV RNA, Ql NAAT (07/22/2024 5:10 PM EDT) Influenza A PCR NEGATIVE Negative [facility] Influenza B PCR NEGATIVE Negative [facility] Resp Syncy Virus RNA Qual PCR NEGATIVE Negative [facility] SARS COV2 PCR NEGATIVE Negative [facility] Comment:All test results mus t [...] use by authorized laboratories.Testing performed on the [employer] GeneXpert utilizingreal-time RT-PCR.All SARS CoV2 and positive influenza A/B results arereported to [facility] 07/22/2024 5:10 PM EDT 07/22/2024 5:13 PM EDT us Generic External Data Provider LAB MICROBIOLOGY - GENERAL ORDERABLES Final Result Performing Organization Address [facility]/ZIP Co de Phone Number [facility] [address] [place] [phone] * Hepatitis C Antibody with Reflex to HCV, RNA, Quantitative, Real-Time PCR (09/10/2023 11:05 AM EDT) Hepatitis C Antibody Nonreactive Nonreactive [facility] Comment:Antibodies to HCV no t detected; does not exclude early acuteHCV infection. Blood Venous blood specimen / Unknown 09/10/2023 11:05 AM EDT 09/10/2023 11:05 AM EDT Marley Tomlinson MD LAB BLOOD ORDERABLES Final Re sult Performing Organization Address [facility]/ZIP Co de Phone Number [facility] [address] [place] [phone] * HIV-1/2 Antigen and Antibodies, Fourth Generation, with Reflexes (09/10/2023 11:05 AM EDT) HIV AB/AG Nonreactive Nonreactive [facility] Comment:HIV-1 p24 Ag and/or HIV-1/HIV-2 Ab not detected.A test result that is nonreactive does not exclude thepossibility of exposure to or infection with HIV-1 and/orHIV-2. Nonreactive results in this assay for individualswith prior exposure to HIV-1 and/or HIV-2 may be due toantigen and antibody levels that are below the limit ofdetection of this assay.The [employer] HIV Ag/Ab Combo assay result andsupplemental assay results should be interpreted inconjunction with the patient's clinical presentation,history and other laboratory results. If the results areinconsistent with clinical evidence, additional testing issuggested to confirm the result. Blood Venous blood specimen / Unknown 09/10/2023 11:05 AM EDT 09/10/2023 11:05 AM EDT us Marley Tomlinson MD LAB BLOOD ORDERABLES Final Re sult [facility] [address] [place] [phone] * (ABNORMAL) Lipid Panel, Standard (09/10/2023 11:05 AM EDT) Triglycerides 101 <150 mg/dL [facility] Comment:Desirable Triglyceri de: less than 150 mg/dLBorderline High Triglyceride 150-199 mg/dLHigh Triglyceride: 200-499 mg/dLVery High Triglyceride: greater than or equal to 5OO mg/dL Cholesterol 181 <200 mg/dL [facility] Comment:Desirable Cholestero l: less than 200 mg/dLBorderline High Cholesterol: 200-239 mg/dLHigh Cholesterol: greater than 239 mg/dL LDL Cholesterol Calculated 119(H) <100 mg/dL [facility] Comment:Desirable LDL: less than 100 mg/dLNear Optimal/Above Optimal LDL: 110- 129 mg/dLBorderline High LDL: 130-159 mg/dLHigh LDL: 160-189 mg/dLVery High LDL: greater than or equal to 190 mg/dL HDL Cholesterol 42 >40 mg/dL [facility] Comment:Desirable HDL: great er than 40 mg/dL Note: This HDL assay may give artificially low results in patients with liver disease. Blood Venous blood specimen / Unknown 09/10/2023 11:05 AM EDT 09/10/2023 11:05 AM EDT us Marley Tomlinson MD LAB BLOOD ORDERABLES Final Re sult [facility] [address] [place] [phone] from Last 3 Months or Most Recently Relevant to Health Maintenance Insurance [facility] C3 DENTAL-[facility] MEDICAID STAND ADULT Care Teams Service Observer Chief Relationship Specialty Start Date End Date Marley Tomlinson MD [address] [place] [phone] PCP - General Family Medicine 10/24/21 Augustine magaña Reeling Machine Setup OperatorSoftware Test And Validation Engineer 05/28/24
[2024-09-22 16:01] VITALS: BP 128/87; PULSE 63; RESP 18; TEMP 36.6; O2SAT 96
[2024-09-22 16:02] LABS: Alanine Aminotransferase 70 U/L (0-40); Albumin Level 4.5 g/dL (3.5-5.0); Anion Gap 15 (12-20); Aspartate Amino Transferase 45 U/L (5-37); Bilirubin Total 0.7 mg/dL (0.0-1.0); Blood Urea Nitrogen 16 mg/dL (9-16); Calcium 9.6 mg/dL (8.4-10.2); Carbon Dioxide 23 mmol/L (22-29); Chloride 105 mmol/L (96-108); Creatinine Clr Calc Pharmacy 198.3; Estimated Glomerular Filt Rate > 60; Glucose Random 87 mg/dL (60-115); Lipase 11 U/L (8-78); Potassium 4.6 mmol/L (3.3-5.1); Sodium 138 mmol/L (135-145); Total Protein 8.3 g/dL (6.5-8.0)
[2024-09-22 16:21] LABS: Appearance Urine Clear; Color Urine Dark Yellow; Glucose Urine UA Negative (Negative); Leukocyte Esterase Urine Negative (Negative); Nitrite Urine Negative (Negative); PH 5.5 (5.0-9.0); Specific Gravity - Urine >= 1.030 (1.005-1.025); UMIC TRIGGER UACC YES; Urine Blood Negative (Negative); Urine Ketones Trace mg/dL (Negative); Urine Protein 30 (1+) mg/dL (Neg-Trace)
[2024-09-22 16:24] LABS: Bacteria Urine None Seen (None Seen); Hyaline Casts Urine 0-2 /LPF (0-2); RBC Urine 0-2 /HPF (0-2); Squamous Epithelial Cell Urine 0-2 /HPF (0-2); WBC Urine 0-5 /HPF (0-5)
[2024-09-22 16:45] LABS: Alkaline Phosphatase 70 U/L (39-117)
[2024-09-22] MEDS: Acetaminophen 325 MG TABLET 975 MG PO (17:02)
[2024-09-22] MEDS: Dicyclomine HCl 10 MG CAPSULE PO (17:02)
[2024-09-22] MEDS: Ketorolac Tromethamine 30 MG/ML VIAL IM (17:02)
[2024-09-22 17:46] VITALS: BP 126/74; PULSE 73; RESP 16; TEMP 36.6; O2SAT 95
[2024-09-22 17:52] VITALS: BP 126/74; PULSE 73; RESP 16; TEMP 36.6; O2SAT 95
== END 2024-09-22 17:55 | disposition home or self-care (01) ==
PROVIDERS: Physician Assistant; Emergency Provider Emergency Medicine Emergency Medical Services; PCP Family Medicine
DX: R10.32 Left lower quadrant pain (principal); Z79.899 Other long term (current) drug therapy
CPT/HCPCS: 36415; 80053; 81001; 83690; 83735; 85025; 96372; 99284; J1885

== ENCOUNTER 2024-11-10 18:06 | Outpatient (REF) | payer MEDICAID, SELFPAY ==
[2024-11-10 18:49] LABS: Influenza A PCR NEGATIVE (Negative); Influenza B PCR NEGATIVE (Negative); Resp Syncy Virus RNA Qual PCR NEGATIVE (Negative); SARS COV2 PCR INHOUSE NEGATIVE (Negative)
== END 2024-11-10 18:07 | disposition home or self-care (01) ==
LOC: HO.CHCLNP 18:06
DX: R05.8 Other specified cough (principal)
CPT/HCPCS: 87637

== ENCOUNTER 2024-12-07 13:40 | Emergency (ER) | payer MEDICAID, SELFPAY ==
--- NOTE | ~2024-12-07 | XR_ITS ---
CLINICAL HISTORY: Coughing 2 view chest x-ray Comparison: None provided Findings: The lungs are clear. Normal size heart. No acute fracture. IMPRESSION: 1. No acute findings. This document has been electronically signed by: Selam Christie MD on 12/07/2024 14:54:03
[2024-12-07 14:10] VITALS: BP 132/85; PULSE 79; RESP 18; TEMP 36.4; O2SAT 95; BMI 44.2
--- NOTE | 2024-12-07 14:13 | ED_ITS ---
HPI - General Adult General Chief complaint: General Medical Stated complaint: upper respiratory infection, hurts when coughing Time Seen by Provider: 12/07/24 14:49 Source: patient Mode of arrival: ambulatory Limitations: no limitations History of Present Illness ED Provider: Shagufta Nieves APRN HPI narrative: 24 yo male with PMH of IBS, anxiety, depression here with complaints of 1 week of productive cough with green sputum, fatigue, body aches. Patient reports this occurred after he drank out of a multi water bottle. He denies any shortness of breath, chest pain, fevers, vomiting, diarrhea, abdominal pain, headache, neck pain, neck stiffness, skin rash. Denies any history of asthma. He has used an inhaler before for upper respiratory symptoms. Related Data Home Medications ?Medication ?Instructions ?Recorded ?Confirmed fluticasone propionate 50 1 - 2 spray intranasal DAILY PRN 01/23/22 05/26/22 mcg/actuation nasal spray,suspension vxnvqkz-kvsynoinwcser-udzzezwc 250 2 tab PO Q8H PRN he adache 05/26/22 05/26/22 mg-250 mg-65 mg tablet (Migraine Relief) methylcellulose (laxative) 500 mg 500 mg PO BID PRN 05/26/22 tablet (Citrucel) quetiapine 25 mg tablet 12.5 mg PO BID 05/26/2205/14 trazodone 100 mg tablet 100 mg PO BEDTIME 05/26/22 0 05/26/22 Previous Rx's ?Medication ?Instructions ?Recorded gabapentin 100 mg capsule 100 - 300 mg (1 - 3 x 100 mg ) PO 05/26/22 BEDTIME 30 days #90 caps ibuprofen 600 mg tablet 600 mg PO BID PRN pain 30 da ys #60 05/26/22 tabs magnesium oxide 400 mg (241.3 mg 400 mg PO BEDTIME 30 days #30 tabs 05/26/22 magnesium) tablet naratriptan 2.5 mg tablet 1.25 - 2.5 mg (0.5 - 1 x 2.5 mg) 05/26/22 PO .COMPLEX PRN migraine headache 30 days #12 tabs riboflavin (vitamin B2) 400 mg 400 mg PO DAILY 30 days #30 tabs 05/26/22 tablet fluticasone furoate 27.5 1 spray intranasal DAILY #5. 9 mL 01/11/23 mcg/actuation nasal spray,suspension zlszqxyo-ljusyw-LG-thonzonm 3.3 1 appl otic (ears) QID #10 mL 01/11/23 mg-3 mg-10 mg-0.5 mg/mL ear drops,susp (Cortisporin-TC) azithromycin 250 mg tablet See Rx Instructions PO .COM PLEX #6 07/22/24 tabs prednisone 20 mg tablet 40 mg (2 x 20 mg) PO DAILY # 10 tabs 07/22/24 dicyclomine 10 mg capsule 10 mg PO TID PRN abdominal p ain 09/22/24 #10 caps albuterol sulfate 90 mcg/actuation 2 puff inhalation Q ID PRN 12/07/24 aerosol inhaler (Ventolin HFA) shortness of breath or wheezing #6.7 grams azithromycin 250 mg tablet See Rx Instructions PO .COM PLEX #6 12/07/24 tabs Allergies Allergy/AdvReac Type Severity Reaction Status Date / Time Seasonal Allergies Allergy Intermediate Runny Nose Verified 12/07/24 14:12 Review of Systems Review of Systems: Yes all other systems are reviewed and are negative Constitutional: Constitutional: Reports no additional constitutional complaints, Reports body ache(s), Denies chills, Reports fatigue, Denies fever(s), Denies headache(s) and Denies weakness Eyes: Eyes: Reports no additional eye complaints and Denies change in vision ENT: Reports system reviewed and no additional complaints, except as documented, Denies dizziness, Denies headache(s), Denies nasal congestion, Denies nasal discharge and Denies neck pain Cardiovascular: Cardiovascular: Reports no additional cardiovascular complaints, Denies chest pain, Denies leg edema and Denies dyspnea Respiratory: Respiratory: Reports no additional respiratory complaints, Reports cough and Denies dyspnea Gastrointestinal: Gastrointestinal: Reports no additional gastrointestinal complaints, Denies abdominal pain, Denies diarrhea, Denies nausea and Denies vomiting Genitourinary: Genitourinary: Denies urinary incontinence Musculoskeletal: Musculoskeletal: Reports no additional musculoskeletal complaints, Denies back pain, Denies arthralgias, Denies joint swelling, Denies neck pain, Denies numbness and Denies tingling Integumentary/Breasts: Skin/Breast: Reports system reviewed and no additional complaints, except as docu and Denies rash Neurologic: Reports system reviewed and no additional complaints, except as documented, Denies Abnormal speech present, Denies dizziness, Denies headache(s), Denies numbness, Denies tingling and Denies weakness Endocrine: Endocrine: Reports fatigue PMFSH Past Medical History Attestation statement: The following information was validated with the patient. Source: old records reviewed and nursing notes reviewed Medical History Obesity Insomnia ADHD Surgical History Hx of wisdom tooth extraction Hx of toe surgery History of placement of ear tubes Family History Family History Paternal Grandfather Diabetes Hypertension Mother Headache Seizures Migraine-cluster headache syndrome Myocardial infarction Hypertension Social History Social History Household Members: Family Household Members Other:: Mother, Sisters, brothers, grandparent, and 3 dogs Alcohol intake: never Patient Tobacco Use Status: Never used Tobacco Advance Directives: No Advance Directives Information Provided: No Current occupational status: unemployed Physical Exam ED Vital Signs: Vital Signs - 24 hr 12/07/24 14:10 12/07/24 15:48 Temperature 97.6 F 97.6 F Pulse Rate 79 79 Respiratory Rate 18 18 Blood Pressure 132/85 132/85 Pulse Oximetry 95 95 Oxygen Delivery Method Room Air Room Air BMI result Body Mass Index 44.2 Const General: cooperative, healthy appearing, comfortable and no acute distress Orientation/consciousness: patient oriented x3 Limitations: no limitations [facility] Head: Yes normal to inspection Ears: hearing grossly normal bilaterally General nose exam: Normal external nose present Face and sinus: Yes normal facial exam Mouth: Normal oral and palatal mucosa present Throat: Yes posterior oropharynx normal Eyes General: appearance normal, both eyes and all related structures Pupils: Equal, round and reactive pupils present Neck Neck: Yes normal visual inspection Chest Chest palpation & inspection: normal inspection of the chest Resp Effort & Inspection: normal respiratory effort Auscultation: clear to auscultation bilaterally Cardio Rate: regular rate Rhythm: regular rhythm Peripheral pulses: Peripheral pulses 2+ throughout GI Inspection: Yes normal to inspection Palpation (GI): Soft to palpation and nontender Auscultation: normal bowel sounds Back/Spine/Pelvis Thoracic/Lumbar Spine: thoracic and lumbar spine normal to inspection Skin General skin exam: no rashes or lesions noted Neuro General: patient oriented x3, no focal motor deficits and normal sensation to monofilament Cranial nerves: Yes Equal, round and reactive pupils present Cognition (Neuro): normal cognition Speech: No Abnormal speech present Gait exam (Neuro): Normal gait present Motor exam (neuro): 5/5 motor strength present throughout Extrem General: Yes normal to inspection Course Course Course Narrative: RME: 24-year-old male presents to ED for fatigue body aches coughing after drinking for moldy water bottle for the past 6 days. Patient denies any abdominal pain diarrhea or coughing up blood. Patient denies any recent travel recent surgery. SARs strep x-ray ordered Reevaluation(s) Reevaluation #1: Viral testing is negative. Strep testing is negative. Chest x-ray shows no acute finding. Patient be treated with antibiotic for bronchitis and recommendations to use albuterol MDI 2 puffs every 4 hours as needed. Reviewed worrisome signs and symptoms of when to return to the emergency room. Comfortable plan for discharge home Medical Decision Making Medical Decision Making [facility] Narrative: 24 yo male with PMH of IBS, anxiety, depression here with complaints of 1 week of productive cough with green sputum, fatigue, body aches. Patient reports this occurred after he drank out of a multi water bottle. He denies any shortness of breath, chest pain, fevers, vomiting, diarrhea, abdominal pain, headache, neck pain, neck stiffness, skin rash. Denies any history of asthma. He has used an inhaler before for upper respiratory symptoms. Exam is benign, LS CTA,VSS Will obtain viral testing, strep testing, CXR Differential Diagnosis Differential Diagnoses: The differential diagnosis associated with the presentation includes Bronchitis, viral syndrome, pneumonia Admission/Observation Consideration of admission/observation: Escalation of care including admission/observation considered Lab Data [facility] Lab Attestation statement: I reviewed the patient's lab results. Labs: Lab Results 12/07/24 Range/Units 14:22 Influenza Type A (PCR) NEGATIVE (Negative) Influenza Type B (PCR) NEGATIVE (Negative) RSV RNA Qual (PCR) NEGATIVE (Negative) SARS-CoV-2 RNA (RT-PCR) NEGATIVE (Negative) S. pyogenes GrpA ENDY Negative (Negative) Independent Interpretation I performed an independent interpretation of an: Plain X-Ray Interpretation: I independently reviewed the x-ray and agree with the radiologist's Radiology Impression Discussion of test interpretation with radiology: I have reviewed the radiologist's reading. Radiologist Impression: [address] [address] XRay Report Signed Patient: Terence Soto MR#: [id number] : 2000 Acct:[id number] Age/Sex: 24 / M ADM Date: 12/07/24 Loc: HO.ED Attending Dr: Ordering Physician: Jeffery Tomlin Date of Service: 12/07/24 Procedure(s): XR chest 2V Accession Number(s): [id number] cc: Jeffery Tomlin; Marley Tomlinson MD~ CLINICAL HISTORY: Coughing 2 view chest x-ray Comparison: None provided Findings: The lungs are clear. Normal size heart. No acute fracture. IMPRESSION: 1. No acute findings. This document has been electronically signed by: Selam Christie MD on 12/07/2024 14:54:03 Discharge Plan Discharge Clinical Impression: Bronchitis Patient Disposition: Home, Self-Care Instructions: Acute Bronchitis (ED) Additional Instructions: Testing for flu, covid, rsv and strep are negative Chest x-ray is negative Prescriptions: New azithromycin 250 mg tablet See Rx Instructions .ROUTE .COMPLEX Qty: 6 0RF Rx Instructions: For 250 mg dose pack: take 500 mg today (day 1), then 250 mg for 4 days (days 2-5) albuterol sulfate [Ventolin HFA] 90 mcg/actuation HFA aerosol inhaler 2 puff inhalation QID PRN (Reason: shortness of breath or wheezing) Qty: 6.7 0RF No Action fluticasone furoate 27.5 mcg/actuation spray,suspension 1 spray intranasal DAILY Qty: 5.9 0RF Rx Instructions: into each nostril Cortisporin-TC 3.3-3-10-0.5 mg/mL drops,suspension 1 appl otic (ears) QID Qty: 10 0RF Rx Instructions: 7 days dicyclomine 10 mg capsule 10 mg PO TID PRN (Reason: abdominal pain) Qty: 10 0RF azithromycin 250 mg tablet See Rx Instructions .ROUTE .COMPLEX Qty: 6 0RF Rx Instructions: For 250 mg dose pack: take 500 mg today (day 1), then 250 mg for 4 days (days 2-5) prednisone 20 mg tablet 40 mg PO DAILY Qty: 10 0RF fluticasone propionate 50 mcg/actuation spray,suspension 1 - 2 spray intranasal DAILY PRN trazodone 100 mg tablet 100 mg PO BEDTIME Citrucel 500 mg tablet 500 mg PO BID PRN quetiapine 25 mg tablet 12.5 mg PO BID Migraine Relief 250-250-65 mg tablet 2 tab PO Q8H PRN (Reason: headache) riboflavin (vitamin B2) 400 mg tablet 400 mg PO DAILY 30 Days Qty: 30 6RF magnesium oxide 400 mg (241.3 mg magnesium) tablet 400 mg PO BEDTIME 30 Days Qty: 30 6RF Rx Instructions: may hold for loose stools naratriptan 2.5 mg tablet 1.25 - 2.5 mg PO .COMPLEX PRN (Reason: migraine headache) 30 Days Qty: 12 3RF Rx Instructions: 1.25 - 2.5 mg orally, msy repeat in 2 hrs, may take w/ Ibuprofen, prn ibuprofen 600 mg tablet 600 mg PO BID PRN (Reason: pain) 30 Days Qty: 60 3RF gabapentin 100 mg capsule 100 - 300 mg PO BEDTIME 30 Days Qty: 90 3RF Referrals: Marley Tomlinson MD [Primary Care Provider, Medical] - 1 week Referral Note: fu as needed Stand Alone Forms: Work/School Release Interventions: ED Discharge Assessment Last Done: 12/07/24 15:48 Discharge Date/Time: 12/07/24 15:49 Print Language: Yi
[2024-12-07 14:54] LABS: IDNOW Serial# 58CA691E; Strep A Nucleic Acid Negative (Negative)
[2024-12-07 15:20] LABS: Resp Syncy Virus RNA Qual PCR NEGATIVE (Negative); SARS COV2 PCR INHOUSE NEGATIVE (Negative)
[2024-12-07 15:48] VITALS: BP 132/85; PULSE 79; RESP 18; TEMP 36.4; O2SAT 95
== END 2024-12-07 15:49 | disposition home or self-care (01) ==
PROVIDERS: Physician Assistant; Emergency Provider Emergency Medicine; PCP Family Medicine
DX: J40 Bronchitis, not specified as acute or chronic (principal); R05.9 Cough, unspecified; R53.83 Other fatigue; M79.10 Myalgia, unspecified site; Z79.899 Other long term (current) drug therapy; Z03.818 Encounter for observation for suspected exposure to other biological agents ruled out
CPT/HCPCS: 71046; 87637; 87651; 99282; 99283

== ENCOUNTER → 2024-12-07 14:13 | Outpatient (BNV) | payer MEDICAID, SELFPAY | PROVIDERS: PCP Family Medicine; Visit Provider Radiology Diagnostic Radiology | DX: R05.9 Cough, unspecified (principal) | CPT/HCPCS: 71046 ==

== ENCOUNTER → 2024-12-23 12:36 | Outpatient (BNV) | payer MEDICAID, SELFPAY | PROVIDERS: Emergency Provider Emergency Medicine; Visit Provider Radiology Diagnostic Radiology | DX: R07.9 Chest pain, unspecified (principal) | CPT/HCPCS: 71045 ==

== ENCOUNTER 2024-12-23 13:08 | Emergency (ER) | payer MEDICAID, SELFPAY ==
--- NOTE | ~2024-12-23 | XR_ITS ---
EXAMINATION: XR CHEST CLINICAL INFORMATION: CP COMPARISON: December 07, 2024. TECHNIQUE: Frontal view of the chest was obtained. FINDINGS: No consolidation, pleural effusion or pneumothorax. No hyperinflation. Cardiomediastinal silhouette size is normal. Osseous structures are grossly intact. XR/XR chest 1V IMPRESSION: No acute airspace disease. Stable chest. Electronically signed by: Vivek Champion MD 12/23/2024 01:52 PM EDT
[2024-12-23 13:17] VITALS: BP 132/72; BP 132/75; PULSE 71; PULSE 72; RESP 13; TEMP 36.7; O2SAT 98; BMI 45.0
[2024-12-23 13:22] VITALS: BP 132/75; PULSE 68; PULSE 71; RESP 13; TEMP 36.7; O2SAT 98
--- NOTE | 2024-12-23 13:26 | ECG_ITS ---
Test Reason : CP Blood Pressure : */* mmHG Vent. Rate : 63 BPM Atrial Rate : 63 BPM P-R Int : 178 ms QRS Dur : 112 ms QT Int : 386 ms P-R-T Axes : 34 -2 20 degrees QTcB Int : 395 ms Normal sinus rhythm Minimal voltage criteria for LVH, may be normal variant ( R in aVL ) Borderline ECG No previous ECGs available Referred By: Aristeo Lance Electronically Signed By: Edd Otero
[2024-12-23 13:58] LABS: MANUAL DIFF FLAG NO
[2024-12-23 14:09] LABS: Hematocrit 42.3 % (42.0-52.0); Hemoglobin 13.8 g/dl (14.0-18.0); Imm Gran Abs Auto 0.02 X10*3/uL (0.00-0.03); Imm Gran Pct Auto 0.3 % (0.0-0.4); Lymphocytes Absolute Auto 2.2 X10*3/uL (1.2-4.9); Mean Corpuscular HGB Conc 32.6 g/dl (31.0-36.0); Mean Corpuscular Hemoglobin 29.5 pg (27.0-33.0); Mean Corpuscular Volume 90.4 fL (80.0-98.0); NRBC Abs Auto 0.000 X10*3/uL (0.0-0.012); NRBC Pct Auto 0.0 /100WBC (0.0-0.2); Platelet Count 365 X10*3/uL (160-400); Red Blood Count 4.68 X10*6/uL (4.60-5.80); White Blood Count 7.3 X10*3/uL (4.8-10.8)
[2024-12-23 14:29] LABS: Alanine Aminotransferase 50 U/L (0-40); Albumin Level 4.4 g/dL (3.5-5.0); Alkaline Phosphatase 61 U/L (39-117); Anion Gap 14 (12-20); Aspartate Amino Transferase 37 U/L (5-37); Blood Urea Nitrogen 17 mg/dL (9-16); Calcium 9.3 mg/dL (8.4-10.2); Carbon Dioxide 22 mmol/L (22-29); Chloride 109 mmol/L (96-108); Creatinine Clr Calc Pharmacy 192.3; Estimated Glomerular Filt Rate > 60; Potassium 4.6 mmol/L (3.3-5.1); Sodium 140 mmol/L (135-145); Total Protein 7.7 g/dL (6.5-8.0)
[2024-12-23 14:33] LABS: Troponin-I High Sensitivity < 2.7 ng/L (<3.5-35.0)
[2024-12-23 14:37] LABS: Resp Syncy Virus RNA Qual PCR NEGATIVE (Negative); SARS COV2 PCR INHOUSE NEGATIVE (Negative)
--- OUTSIDE RECORDS SUMMARY | 2024-12-23 15:19 | XMS_ITS | Encounter Summary ---
Author Organization [employer] Address [address] [place] [address] Care Team Providers Care Aviation Warfare Systems Operator Name Role Phone Marley Tomlinson MD Primary Care Provider [phone] Encounter Details Date Type Department Care Team [...] on filedocumented in this encounter Care Teams Aviation Warfare Systems Operator Relationship Specialty Start Date End Date Marley Tomlinson MD [address] [place] [id number] PCP - General Family Medicine 10/24/21 Augustine magaña Asset ManagerSoda Fountain Manager 05/28/24 documented as of this encounter
[2024-12-23 15:27] VITALS: BP 124/76; PULSE 62; RESP 16; O2SAT 99
--- NOTE | 2024-12-23 16:05 | ED.CHESTPAIN ---
HPI - Chest Pain General Chief Complaint: Chest Pain Stated Complaint: DULL CP SINCE THIS AM,COMES/GOES PER EMS Time Seen by Provider: 12/23/24 13:21 Source: patient Mode of arrival: EMS History of Present Illness HPI narrative: This is 24 years old the patient presented to the emergency department complaining of dull chest pain since this morning at least 6 hours ago without radiation no exertional the pain is intermittent he arrived by ambulance he has a history of depression, anxiety obesity. MD complaint: chest pain Onset (ago): hour(s) (6) Timing of current episode: episodic Prior episodes: No Onset: during rest Pain location: substernal Pain radiation: none Severity: mild Quality: dull Relieving factors: nothing Exacerbating factors: nothing Risk Factors Coronary artery disease risk factors: none Thoracic aortic dissection risk factors: none Related Data Home Medications ?Medication ?Instructions ?Recorded ?Confirmed fluticasone propionate 50 1 - 2 spray intranasal DAILY PRN 01/23/22 05/26/22 mcg/actuation nasal spray,suspension [id number] 250 2 tab PO Q8H PRN headache 05/26/22 05/26/22 mg-250 mg-65 mg tablet (Migraine Relief) methylcellulose (laxative) 500 mg 500 mg PO BID PRN 05/26/22 05/26/22 tablet (Citrucel) quetiapine 25 mg tablet 12.5 mg PO BID 05/26/22 05/26/22 trazodone 100 mg tablet 100 mg PO BEDTIME 05/26/22 05/26/22 Previous Rx's ?Medication ?Instructions ?Recorded gabapentin 100 mg capsule 100 - 300 mg (1 - 3 x 100 mg) PO 05/26/22 BEDTIME 30 days #90 caps ibuprofen 600 mg tablet 600 mg PO BID PRN pain 30 days #60 05/26/22 tabs magnesium oxide 400 mg (241.3 mg 400 mg PO BEDTIME 30 days #30 tabs 05/26/22 magnesium) tablet naratriptan 2.5 mg tablet 1.25 - 2.5 mg (0.5 - 1 x 2.5 mg) 05/26/22 PO .COMPLEX PRN migraine headache 30 days #12 tabs riboflavin (vitamin B2) 400 mg 400 mg PO DAILY 30 days #30 tabs 05/26/22 tablet fluticasone furoate 27.5 1 spray intranasal DAILY #5.9 mL 01/11/23 mcg/actuation nasal spray,suspension [id number] 3.3 1 appl otic (ears) QID #10 mL 01/11/23 mg-3 mg-10 mg-0.5 mg/mL ear drops,susp (Cortisporin-TC) azithromycin 250 mg tablet See Rx Instructions PO .COMPLEX #6 07/22/24 tabs prednisone 20 mg tablet 40 mg (2 x 20 mg) PO DAILY #10 tabs 07/22/24 dicyclomine 10 mg capsule 10 mg PO TID PRN abdominal pain 09/22/24 #10 caps albuterol sulfate 90 mcg/actuation 2 puff inhalation QID PRN 12/07/24 aerosol inhaler (Ventolin HFA) shortness of breath or wheezing #6.7 grams azithromycin 250 mg tablet See Rx Instructions PO .COMPLEX #6 12/07/24 tabs Allergies Allergy/AdvReac Type Severity Reaction Status Date / Time Seasonal Allergies Allergy Intermediate Runny Nose Verified 12/23/24 13:22 Review of Systems Review of Systems: Yes all other systems are reviewed and are negative ENT: Reports system reviewed and no additional complaints, except as documented Cardiovascular: Cardiovascular: Reports as per [facility] Past Medical History Attestation statement: The following information was validated with the patient. [facility] Narrative: Obesity/insulin/attention deficit disorder Medical History Obesity Insomnia ADHD Surgical History Hx of wisdom tooth extraction Hx of toe surgery History of placement of ear tubes Family History Family History Paternal Grandfather Diabetes Hypertension Mother Headache Seizures Migraine-cluster headache syndrome Myocardial infarction Hypertension Social History Social History Household Members: Family Household Members Other:: Mother, Sisters, brothers, grandparent, and 3 dogs Alcohol intake: current Alcohol intake frequency: does not drink Patient Tobacco Use Status: Never used Tobacco Smoked in Last 30 Days: No Use of substances other than those prescribed or required for medical reasons: No Advance Directives: No Advance Directives Information Provided: No Do you have a plan to hurt others: No Plan Current occupational status: unemployed Physical Exam Exam: Exam: Overall he looks well is not in distress comfortable in the stretcher Vital Signs: Vital Signs: Last Vital Signs Temp 0 F L 12/23/24 16:24 Pulse 62 12/23/24 16:24 Resp 16 12/23/24 16:24 BP 124/76 12/23/24 16:24 Pulse Ox 99 12/23/24 16:24 O2 Del Method Room Air 12/23/24 16:24 BMI result Body Mass Index 45.0 His vital signs stable normotensive afebrile Const: General: cooperative Nutritional Appearance: well nourished Orientation/consciousness: oriented to person and patient oriented x3 Limitations: no limitations HEENT: Head: Yes normal to inspection General nose exam: Normal external nose present Face and sinus: Yes normal facial exam Mouth: Normal oral and palatal mucosa present Neck: Neck: Yes normal visual inspection Thyroid: Thyroid normal Chest: Chest palpation & inspection: normal inspection of the chest Resp: Effort & Inspection: normal respiratory effort Cardio: Jugular venous distension: no JVD Rate: regular rate Rhythm: regular rhythm GI: Inspection: Yes normal to inspection Palpation (GI): Soft to palpation, not firm, nontender and no guarding Skin: General skin exam: no rashes or lesions noted Lesions: no lesions Rashes: no rashes Neuro: General: oriented to person and patient oriented x3 Cranial nerves: Yes CN's II-XII intact bilaterally Motor exam (neuro): 5/5 motor strength present throughout Medications Administered Discontinued Medications Generic Name Dose Route Start Last Admin Trade Name Esther PRN Reason Stop Dose Admin Ibuprofen 800 mg 12/23/24 15:19 12/23/24 15:28 Ibuprofen 800 Mg Tablet PO 12/23/24 15:20 800 mg ONCE ONE Administration Procedures EJ/Peripheral Line Arm R: Time Out Performed: Yes Skin Cleansed in Sterile Fashion: Yes Size (gauge): 20 IV Secured and Dressing Applied: Yes Patient Tolerated Procedure: well Additional Comments: Under US cannulated rt brachial vein with 20 maria a catheter good flush good blood return Medical Decision Making Medical Decision Making MDM Narrative: Patient comes with left-sided chest pain without radiation the clinical picture is not consistent with dissection is not sudden does not go to the back, the clinical picture is not consistent with PE is satting 99% is not short of breath is not tachycardic he is not tachypneic. We will do an electrocardiogram labs reassess we will check I sensitive troponin 16:12 high sensitive troponin is negative chest x-ray is normal, overall this is a low risk patient I think he can be safely discharged home he is feeling better at this time. I did also bedside echo no pericardial effusion and good wall motion Differential Diagnosis Differential Diagnoses: The differential diagnosis associated with the presentation includes Dissection very unlikely given the fact that this no sudden no radiation to the back, also unlikely pulmonary emboli in the he is not hypoxic is sat is 99% is not short of breath respirations 16 pulse is 62 ACS could be a possibility or perhaps pericarditis or musculoskeletal pain a pneumothorax Admission/Observation Consideration of admission/observation: Escalation of care including admission/observation considered Lab Data MDM Lab Attestation statement: I reviewed the patient's lab results. 12/23/24 13:53 12/23/24 13:53 Labs: Lab Results 12/23/24 12/23/24 Range/Units 13:53 13:55 WBC 7.3 (4.8-10.8) X10*3/uL RBC 4.68 (4.60-5.80) X10*6/uL Hgb 13.8 L (14.0-18.0) g/dl Hct 42.3 (42.0-52.0) % MCV 90.4 (80.0-98.0) fL MCH 29.5 (27.0-33.0) pg MCHC 32.6 (31.0-36.0) g/dl RDW 13.0 (11.0-16.0) % Plt Count 365 (160-400) X10*3/uL MPV 10.0 (9.4-12.4) fL Immature Gran % (Auto) 0.3 (0.0-0.4) % Neut % (Auto) 53.8 (45-73) % Lymph % (Auto) 30.9 (20-40) % Dunn % (Auto) 11.0 (2-11) % Eos % (Auto) 2.9 (0-4) % Baso % (Auto) 1.1 (0-2) % Lymph # (Auto) 2.2 (1.2-4.9) X10*3/uL Dunn # (Auto) 0.8 (0.1-1.2) X10*3/uL Eos # (Auto) 0.2 (0.0-0.4) X10*3/uL Baso # (Auto) 0.1 (0.0-0.2) X10*3/uL Abs Immat Gran (auto) 0.02 (0.00-0.03) X10*3/uL Absolute Neuts (auto) 3.9 (2.0-8.3) x10*3/uL Absolute Nucleated RBC 0.000 (0.0-0.012) X10*3/uL Nucleated RBC % (auto) 0.0 (0.0-0.2) /100WBC Sodium 140 (135-145) mmol/L Potassium 4.6 (3.3-5.1) mmol/L Chloride 109 H (96-108) mmol/L Carbon Dioxide 22 (22-29) mmol/L Anion Gap 14 (12-20) BUN 17 H (9-16) mg/dL Creatinine 0.91 (0.5-1.4) mg/dL Estim Creat Clear Calc 192.3 Estimated GFR > 60 Random Glucose 82 (60-115) mg/dL Calcium 9.3 (8.4-10.2) mg/dL Total Bilirubin 0.4 (0.0-1.0) mg/dL AST 37 (5-37) U/L ALT 50 H (0-40) U/L Alkaline Phosphatase 61 (39-117) U/L Troponin I High Sens < 2.7 (<3.5-35.0) ng/L Total Protein 7.7 (6.5-8.0) g/dL Albumin 4.4 (3.5-5.0) g/dL Influenza Type A (PCR) NEGATIVE (Negative) Influenza Type B (PCR) NEGATIVE (Negative) RSV RNA Qual (PCR) NEGATIVE (Negative) SARS-CoV-2 RNA (RT-PCR) NEGATIVE (Negative) Independent Interpretation I performed an independent interpretation of an: EKG (Normal sinus rhythm rate [address]-T changes) and Plain X-Ray Interpretation: Reviewed by me normal Radiology Impression Discussion of test interpretation with radiology: I have reviewed the radiologist's reading. Radiologist Impression: CLINICAL INFORMATION: CP COMPARISON: December 07, 2024. TECHNIQUE: Frontal view of the chest was obtained. FINDINGS: No consolidation, pleural effusion or pneumothorax. No hyperinflation. Cardiomediastinal silhouette size is normal. Osseous structures are grossly intact. XR/XR chest 1V IMPRESSION: No acute airspace disease. Stable chest. Electronically signed by: Vivek Champion MD 12/23/2024 01:52 PM EDT RP Chronic Conditions Patient?s care impacted by: Other (Obesity) Discharge Plan Discharge Clinical Impression: Chest pain Qualifiers: Chest pain type: unspecified Qualified Code(s): R07.9 - Chest pain, unspecified Patient Disposition: Home, Self-Care Instructions: Chest Pain (DC) Additional Instructions: You have been evaluated in the emergency room for chest pain you electrocardiogram was normal with a blood test for heart attack which was normal the chest x-ray also was normal follow-up with your primary care physician return to the emergency room if you worse Prescriptions: No Action fluticasone furoate 27.5 mcg/actuation spray,suspension 1 spray intranasal DAILY Qty: 5.9 0RF Rx Instructions: into each nostril Cortisporin-TC 3.3-3-10-0.5 mg/mL drops,suspension 1 appl otic (ears) QID Qty: 10 0RF Rx Instructions: 7 days dicyclomine 10 mg capsule 10 mg PO TID PRN (Reason: abdominal pain) Qty: 10 0RF azithromycin 250 mg tablet See Rx Instructions .ROUTE .COMPLEX Qty: 6 0RF Rx Instructions: For 250 mg dose pack: take 500 mg today (day 1), then 250 mg for 4 days (days 2-5) prednisone 20 mg tablet 40 mg PO DAILY Qty: 10 0RF azithromycin 250 mg tablet See Rx Instructions .ROUTE .COMPLEX Qty: 6 0RF Rx Instructions: For 250 mg dose pack: take 500 mg today (day 1), then 250 mg for 4 days (days 2-5) albuterol sulfate [Ventolin HFA] 90 mcg/actuation HFA aerosol inhaler 2 puff inhalation QID PRN (Reason: shortness of breath or wheezing) Qty: 6.7 0RF fluticasone propionate 50 mcg/actuation spray,suspension 1 - 2 spray intranasal DAILY PRN trazodone 100 mg tablet 100 mg PO BEDTIME Citrucel 500 mg tablet 500 mg PO BID PRN quetiapine 25 mg tablet 12.5 mg PO BID Migraine Relief 250-250-65 mg tablet 2 tab PO Q8H PRN (Reason: headache) riboflavin (vitamin B2) 400 mg tablet 400 mg PO DAILY 30 Days Qty: 30 6RF magnesium oxide 400 mg (241.3 mg magnesium) tablet 400 mg PO BEDTIME 30 Days Qty: 30 6RF Rx Instructions: may hold for loose stools naratriptan 2.5 mg tablet 1.25 - 2.5 mg PO .COMPLEX PRN (Reason: migraine headache) 30 Days Qty: 12 3RF Rx Instructions: 1.25 - 2.5 mg orally, msy repeat in 2 hrs, may take w/ Ibuprofen, prn ibuprofen 600 mg tablet 600 mg PO BID PRN (Reason: pain) 30 Days Qty: 60 3RF gabapentin 100 mg capsule 100 - 300 mg PO BEDTIME 30 Days Qty: 90 3RF Referrals: Marley Tomlinson MD [Primary Care Provider, Medical] - 12/24/24 Interventions: ED Discharge Assessment Last Done: 12/23/24 16:24 Discharge Date/Time: 12/23/24 16:24 Print Language: Cymraes
[2024-12-23 16:24] VITALS: BP 124/76; PULSE 62; RESP 16; TEMP -17.7; TEMP 0; O2SAT 99
== END 2024-12-23 16:24 | disposition home or self-care (01) ==
PROVIDERS: Emergency Provider Emergency Medicine; PCP Family Medicine
DX: R07.9 Chest pain, unspecified (principal); F32.A Depression, unspecified; F41.9 Anxiety disorder, unspecified; E66.9 Obesity, unspecified; Z68.42 Body mass index [BMI] 45.0-49.9, adult; Z79.899 Other long term (current) drug therapy; Z03.818 Encounter for observation for suspected exposure to other biological agents ruled out
CPT/HCPCS: 36410; 71045; 80053; 84484; 85025; 87637; 93005; 99283; 99285

== ENCOUNTER → 2024-12-23 13:26 | Outpatient (BNV) | payer MEDICAID, SELFPAY | PROVIDERS: Emergency Provider Emergency Medicine; PCP Family Medicine; Visit Provider Internal Medicine Cardiovascular Disease | DX: R07.9 Chest pain, unspecified (principal) | CPT/HCPCS: 93010 ==

== ENCOUNTER 2024-12-25 20:41 | Emergency (ER) | payer MEDICAID, SELFPAY ==
[2024-12-25 21:25] VITALS: BP 133/71; PULSE 73; RESP 18; TEMP 36.9; O2SAT 96; BMI 45.7
--- NOTE | 2024-12-25 21:32 | ECG_ITS ---
Test Reason : CHEST TIGHTNESS Blood Pressure : */* mmHG Vent. Rate : 74 BPM Atrial Rate : 74 BPM P-R Int : 170 ms QRS Dur : 112 ms QT Int : 352 ms P-R-T Axes : 33 -9 22 degrees QTcB Int : 390 ms Normal sinus rhythm Incomplete right bundle branch block Minimal voltage criteria for LVH, may be normal variant ( R in aVL ) Borderline ECG When compared with ECG of 23-Dec-2024 13:30, Incomplete right bundle branch block is now Present Referred By: Generic ED Physician Electronically Signed By: Edd Otero
[2024-12-25 22:08] LABS: Hemoglobin 13.4 g/dl (14.0-18.0); Imm Gran Abs Auto 0.02 X10*3/uL (0.00-0.03); Imm Gran Pct Auto 0.2 % (0.0-0.4); MANUAL DIFF FLAG SCAN; NRBC Abs Auto 0.000 X10*3/uL (0.0-0.012); NRBC Pct Auto 0.0 /100WBC (0.0-0.2); PLT CLUMP 1; SCAN SMEAR FLAG 1
[2024-12-25 22:10] LABS: Hematocrit 39.6 % (42.0-52.0); Lymphocytes Absolute Auto 2.6 X10*3/uL (1.2-4.9); Mean Corpuscular HGB Conc 33.8 g/dl (31.0-36.0); Mean Corpuscular Hemoglobin 29.8 pg (27.0-33.0); Mean Corpuscular Volume 88.2 fL (80.0-98.0); Red Blood Count 4.49 X10*6/uL (4.60-5.80)
[2024-12-25 22:13] LABS: White Blood Count 9.8 X10*3/uL (4.8-10.8)
[2024-12-25 22:22] LABS: Alanine Aminotransferase 36 U/L (0-40); Albumin Level 4.5 g/dL (3.5-5.0); Alkaline Phosphatase 62 U/L (39-117); Anion Gap 12 (12-20); Aspartate Amino Transferase 26 U/L (5-37); Blood Urea Nitrogen 15 mg/dL (9-16); Calcium 9.3 mg/dL (8.4-10.2); Carbon Dioxide 23 mmol/L (22-29); Chloride 108 mmol/L (96-108); Creatinine Clr Calc Pharmacy 180.0; Estimated Glomerular Filt Rate > 60; Magnesium 1.9 mg/dL (1.6-2.6); Potassium 4.1 mmol/L (3.3-5.1); Sodium 139 mmol/L (135-145); Total Protein 7.6 g/dL (6.5-8.0)
[2024-12-25 22:28] LABS: B Type Natriuretic Peptide < 10 pg/mL (<100)
[2024-12-25 22:31] LABS: Troponin-I High Sensitivity < 2.7 ng/L (<3.5-35.0)
[2024-12-25 22:43] LABS: Platelet Count 297 X10*3/uL (160-400)
[2024-12-25 22:44] LABS: Resp Syncy Virus RNA Qual PCR NEGATIVE (Negative); SARS COV2 PCR INHOUSE NEGATIVE (Negative)
[2024-12-26 00:59] VITALS: BP 118/73; PULSE 61; RESP 20; TEMP 36.8; O2SAT 95
[2024-12-26 01:17] LABS: Appearance Urine Clear; Glucose Urine UA Negative (Negative); PH 6.0 (5.0-9.0); Specific Gravity - Urine >= 1.030 (1.005-1.025)
--- NOTE | 2024-12-26 01:42 | ED.GENADULT ---
HPI - General Adult General Chief complaint: General Medical Stated complaint: Nausea, left arm numbness Time Seen by Provider: 12/26/24 01:41 Source: patient Mode of arrival: ambulatory Limitations: no limitations History of Present Illness ED Provider: Miguel DE LEON HPI narrative: The patient is a 24 year old male with a history of morbid obesity, depression, chronic abdominal pain, chronic migraine, insomnia, and IBS, presenting to the ED for re-evaluation of multiple ongoing complaints. The patient reports he has been experiencing 2-3 days of waxing and waning chest tightness, left arm pain, nonproductive cough, nausea without vomiting, nonbloody diarrhea, lightheadedness, blurred vision, and generalized malaise. The patient was seen here on 12/07 and diagnosed with bronchitis. The patient was seen again in this ED on 12/23 for symptoms similar to today, was also concerned for high blood pressure at that time however was normotensive in the ED. Today the patient denies associated pleurisy, hemoptysis, vomiting, dysuria, hematuria, recent sick contacts, or recent trauma. Patient reports he has been attempting to control his body aches with naproxen and Tylenol without significant improvement. The patient has not follow up with his PCP regarding his symptoms. The patient reports he has been compliant with his prescribed medications. Related Data Home Medications ?Medication ?Instructions ?Recorded ?Confirmed fluticasone propionate 50 1 - 2 spray intranasal DAILY PRN 01/23/22 05/26/22 mcg/actuation nasal spray,suspension [id number]-bdwitmsm 250 2 tab PO Q8H PRN headache 05/26/22 05/26/22 mg-250 mg-65 mg tablet (Migraine Relief) methylcellulose (laxative) 500 mg 500 mg PO BID PRN 05/26/22 05/26/22 tablet (Citrucel) quetiapine 25 mg tablet 12.5 mg PO BID 05/26/22 05/26/22 trazodone 100 mg tablet 100 mg PO BEDTIME 05/26/22 05/26/22 Previous Rx's ?Medication ?Instructions ?Recorded gabapentin 100 mg capsule 100 - 300 mg (1 - 3 x 100 mg) PO 05/26/22 BEDTIME 30 days #90 caps ibuprofen 600 mg tablet 600 mg PO BID PRN pain 30 days #60 05/26/22 tabs magnesium oxide 400 mg (241.3 mg 400 mg PO BEDTIME 30 days #30 tabs 05/26/22 magnesium) tablet naratriptan 2.5 mg tablet 1.25 - 2.5 mg (0.5 - 1 x 2.5 mg) 05/26/22 PO .COMPLEX PRN migraine headache 30 days #12 tabs riboflavin (vitamin B2) 400 mg 400 mg PO DAILY 30 days #30 tabs 05/26/22 tablet fluticasone furoate 27.5 1 spray intranasal DAILY #5.9 mL 01/11/23 mcg/actuation nasal spray,suspension omksfqov-tvbvxp-CH-thonzonm 3.3 1 appl otic (ears) QID #10 mL 01/11/23 mg-3 mg-10 mg-0.5 mg/mL ear drops,susp (Cortisporin-TC) azithromycin 250 mg tablet See Rx Instructions PO .COMPLEX #6 07/22/24 tabs prednisone 20 mg tablet 40 mg (2 x 20 mg) PO DAILY #10 tabs 07/22/24 dicyclomine 10 mg capsule 10 mg PO TID PRN abdominal pain 09/22/24 #10 caps albuterol sulfate 90 mcg/actuation 2 puff inhalation QID PRN 12/07/24 aerosol inhaler (Ventolin HFA) shortness of breath or wheezing #6.7 grams azithromycin 250 mg tablet See Rx Instructions PO .COMPLEX #6 12/07/24 tabs Allergies Allergy/AdvReac Type Severity Reaction Status Date / Time Seasonal Allergies Allergy Intermediate Runny Nose Verified 12/25/24 21:29 Review of Systems Review of Systems: Yes all other systems are reviewed and are negative PMFSH Past Medical History Medical History Obesity Insomnia ADHD Surgical History Hx of wisdom tooth extraction Hx of toe surgery History of placement of ear tubes Family History Family History Paternal Grandfather Diabetes Hypertension Mother Headache Seizures Migraine-cluster headache syndrome Myocardial infarction Hypertension Social History Social History Household Members: Family Household Members Other:: Mother, Sisters, brothers, grandparent, and 3 dogs Alcohol intake: current Alcohol intake frequency: does not drink Patient Tobacco Use Status: Never used Tobacco Advance Directives: No Advance Directives Information Provided: Yes Do you have a plan to hurt others: No Plan Current occupational status: unemployed Physical Exam ED Vital Signs: Vital Signs - 24 hr 12/25/24 21:25 12/26/24 00:59 12/26/24 01:49 Temperature 98.5 F 98.2 F 97.8 F Pulse Rate 73 61 68 Respiratory Rate 18 20 16 Blood Pressure 133/71 118/73 124/78 Pulse Oximetry 96 95 98 Oxygen Delivery Method Room Air Room Air Room Air BMI result Body Mass Index 45.7 CONSTITUTIONAL: The patient appears morbidly obese, but otherwise non-toxic, well nourished and in no acute distress. Vital signs as documented. HEAD: Atraumatic, normocephalic. EYES: EOMs grossly intact, pupils equal, conjunctiva clear, no exudate. ENT: Nares patent, no discharge. Airway patent, no audible stridor, visible mucosa is pink and moist without noted lesions. NECK: Trachea is midline, no obvious masses or gross abnormalities. CHEST: Symmetric movement, normal appearance. LUNGS: LS present and CTAB, no w/r/r. Non-labored work of breathing. CARDIAC: Regular Rhythm, S1/S2 appreciated, no murmurs, rubs or gallops. ABDOMEN: Abdomen soft and non-tender x4 quadrants, no palpable masses or organomegaly. : Deferred. EXTREMITIES: Normal tone, moves all extremities spontaneously without reported pain. No obvious acute injury or deformity noted. NEURO: Alert and oriented x3, CN II-XII appear grossly intact. Cerebellar Functioning grossly intact. No obvious sensory or motor deficits. Speech clear and appropriate. PSYCH: normal affect, appropriate eye contact, fluid speech, with appropriate response to questioning. No reported suicidality or homicidality. SKIN: Warm, dry, color appropriate, normal turgor. No rashes noted. Medical Decision Making Medical Decision Making MDM Narrative: 3:02 AM 12/26/2024 (Danna DE LEON): The patient is a 24-year-old male presenting to the ED for re-evaluation of ongoing viral syndrome type symptoms which began 2 days ago at which time he was evaluated in this ED. Evaluation at that time was unremarkable. Today the patient reports ongoing nonproductive cough with associated chest tightness, left arm pain, lightheadedness, fatigue, malaise, nausea without vomiting, and blurred vision. The patient appears in no acute distress in the ED, no active vomiting. The patient's exam is benign, no acute findings, nontender abdomen. The patient's EKG is nonischemic, CBC shows no leukocytosis, significant anemia, electrolyte abnormality, ANA LAURA, or LFT abnormality. Patient's troponin is negative, urinalysis shows no evidence of infection. Repeat viral swabs are negative for flu, RSV, and COVID. Chart review reveals chest x-ray performed 2 days ago was negative for pneumonia. Patient is not hypoxic or tachycardic or hypotensive, patient is PERC negative. Patient appears to be suffering from persistent viral syndrome, patient has been educated on potential duration and course of symptoms. We will discharge with supportive care and Admission/Observation Consideration of admission/observation: Escalation of care including admission/observation considered Lab Data MDM Lab Attestation statement: I reviewed the patient's lab results. 12/25/24 21:59 12/25/24 21:59 Labs: Lab Results 12/25/24 12/25/24 12/26/24 Range/Units 21:58 21:59 01:10 WBC 9.8 (4.8-10.8) X10*3/uL RBC 4.49 L (4.60-5.80) X10*6/uL Hgb 13.4 L (14.0-18.0) g/dl Hct 39.6 L (42.0-52.0) % MCV 88.2 (80.0-98.0) fL MCH 29.8 (27.0-33.0) pg MCHC 33.8 (31.0-36.0) g/dl RDW 12.9 (11.0-16.0) % Plt Count 297 (160-400) X10*3/uL MPV 10.2 (9.4-12.4) fL Immature Gran % (Auto) 0.2 (0.0-0.4) % Neut % (Auto) 59.0 (45-73) % Lymph % (Auto) 26.7 (20-40) % [place] % (Auto) 11.5 H (2-11) % Eos % (Auto) 2.0 (0-4) % Baso % (Auto) 0.6 (0-2) % Lymph # (Auto) 2.6 (1.2-4.9) X10*3/uL [place] # (Auto) 1.1 (0.1-1.2) X10*3/uL Eos # (Auto) 0.2 (0.0-0.4) X10*3/uL Baso # (Auto) 0.1 (0.0-0.2) X10*3/uL Abs Immat Gran (auto) 0.02 (0.00-0.03) X10*3/uL Absolute Neuts (auto) 5.8 (2.0-8.3) x10*3/uL Absolute Nucleated RBC 0.000 (0.0-0.012) X10*3/uL Nucleated RBC % (auto) 0.0 (0.0-0.2) /100WBC Smear Tech's Comments VERIFIED Sodium 139 (135-145) mmol/L Potassium 4.1 (3.3-5.1) mmol/L Chloride 108 (96-108) mmol/L Carbon Dioxide 23 (22-29) mmol/L Anion Gap 12 (12-20) BUN 15 (9-16) mg/dL Creatinine 0.98 (0.5-1.4) mg/dL Estim Creat Clear Calc 180.0 Estimated GFR > 60 Random Glucose 94 (60-115) mg/dL Calcium 9.3 (8.4-10.2) mg/dL Magnesium 1.9 (1.6-2.6) mg/dL Total Bilirubin 0.3 (0.0-1.0) mg/dL AST 26 (5-37) U/L ALT 36 (0-40) U/L Alkaline Phosphatase 62 (39-117) U/L Troponin I High Sens < 2.7 (<3.5-35.0) ng/L B-Natriuretic Peptide < 10 (<100) pg/mL Total Protein 7.6 (6.5-8.0) g/dL Albumin 4.5 (3.5-5.0) g/dL Urine Color Yellow Urine Appearance Clear Urine pH 6.0 (5.0-9.0) Ur Specific [place] >= 1.030 H (1.005-1.025) Urine Protein Trace (Neg-Trace) mg/dL Urine Glucose (UA) Negative (Negative) mg/dL Urine Ketones Trace (Negative) mg/dL Urine Blood Negative (Negative) Urine Nitrite Negative (Negative) Ur Leukocyte Esterase Negative (Negative) Influenza Type A (PCR) NEGATIVE (Negative) Influenza Type B (PCR) NEGATIVE (Negative) RSV RNA Qual (PCR) NEGATIVE (Negative) SARS-CoV-2 RNA (RT-PCR) NEGATIVE (Negative) Independent Interpretation I performed an independent interpretation of an: EKG (EKG shows sinus rhythm with a incomplete right bundle-branch block, no evidence of acute ischemia, no ST elevation, no ectopy. QTC 390. Compared to previous on 12/23/2024 incomplete right bundle-branch block is now noted. No other acute morphology changes.) External Record Review External record reviewed: Outpatient record Tests considered The following testing was considered but not selected: CT abd; CTA Chest; Chest X-ray Prescription Management I considered prescription management with: Antibiotic Discharge Plan Discharge Clinical Impression: Acute viral syndrome, Non-cardiac chest pain Patient Disposition: Home, Self-Care Instructions: Viral Syndrome (ED), Noncardiac Chest Pain (ED) Additional Instructions: Thank you for choosing [facility]'s Emergency Department for your care today. Thankfully your laboratory evaluation, EKG, viral swab, urinalysis, and exam today are all reassuring. At this time there is no indication for admission to the hospital or continued ED observation, and it is safe to discharge you home. There is no evidence of an acute cardiac, bacterial, metabolic, pulmonary, coagulopathic (blood clot), or other dangerous cause for your symptoms. Your symptoms are consistent with a viral syndrome, likely caused by a viral upper respiratory infection which is now also affecting your GI tract. Your viral swab was negative for influenza, COVID, and RSV, however there are many other viruses we do not test for that can cause these symptoms. You should take alternating (staggered) doses of ibuprofen 600mg and Tylenol 1000mg every 4 hours as needed for any additional pain, fever, or cough. Do not take naproxen while taking ibuprofen. Please stay well hydrated and get plenty of rest. Please follow up with your primary care physician for re-evaluation, additional management of your symptoms, and continued preventative care. If you do not have a primary care physician, please call the [facility] at [phone] to establish a new primary care physician. While waiting to establish your new primary care physician, you can call our [facility] at [phone] for non-emergency needs. Please return to the emergency department if you develop a severe or sudden change in your symptoms, a fever over 100.4 that does not improve with Tylenol or Ibuprofen, recurrent vomiting, or any other new or worsening symptoms or concerns. Prescriptions: No Action fluticasone furoate 27.5 mcg/actuation spray,suspension 1 spray intranasal DAILY Qty: 5.9 0RF Rx Instructions: into each nostril Cortisporin-TC 3.3-3-10-0.5 mg/mL drops,suspension 1 appl otic (ears) QID Qty: 10 0RF Rx Instructions: 7 days dicyclomine 10 mg capsule 10 mg PO TID PRN (Reason: abdominal pain) Qty: 10 0RF azithromycin 250 mg tablet See Rx Instructions .ROUTE .COMPLEX Qty: 6 0RF Rx Instructions: For 250 mg dose pack: take 500 mg today (day 1), then 250 mg for 4 days (days 2-5) prednisone 20 mg tablet 40 mg PO DAILY Qty: 10 0RF azithromycin 250 mg tablet See Rx Instructions .ROUTE .COMPLEX Qty: 6 0RF Rx Instructions: For 250 mg dose pack: take 500 mg today (day 1), then 250 mg for 4 days (days 2-5) albuterol sulfate [Ventolin HFA] 90 mcg/actuation HFA aerosol inhaler 2 puff inhalation QID PRN (Reason: shortness of breath or wheezing) Qty: 6.7 0RF fluticasone propionate 50 mcg/actuation spray,suspension 1 - 2 spray intranasal DAILY PRN trazodone 100 mg tablet 100 mg PO BEDTIME Citrucel 500 mg tablet 500 mg PO BID PRN quetiapine 25 mg tablet 12.5 mg PO BID Migraine Relief 250-250-65 mg tablet 2 tab PO Q8H PRN (Reason: headache) riboflavin (vitamin B2) 400 mg tablet 400 mg PO DAILY 30 Days Qty: 30 6RF magnesium oxide 400 mg (241.3 mg magnesium) tablet 400 mg PO BEDTIME 30 Days Qty: 30 6RF Rx Instructions: may hold for loose stools naratriptan 2.5 mg tablet 1.25 - 2.5 mg PO .COMPLEX PRN (Reason: migraine headache) 30 Days Qty: 12 3RF Rx Instructions: 1.25 - 2.5 mg orally, msy repeat in 2 hrs, may take w/ Ibuprofen, prn ibuprofen 600 mg tablet 600 mg PO BID PRN (Reason: pain) 30 Days Qty: 60 3RF gabapentin 100 mg capsule 100 - 300 mg PO BEDTIME 30 Days Qty: 90 3RF Referrals: Physician,Unknown J [Primary Care Provider, Medical] Clinical Impression: Acute viral syndrome; Non-cardiac chest pain Print Language: Mohawk
[2024-12-26 01:49] VITALS: BP 124/78; PULSE 68; RESP 16; TEMP 36.6; O2SAT 98
[2024-12-26 04:41] VITALS: BP 124/78; PULSE 68; RESP 16; TEMP 36.6; O2SAT 98
== END 2024-12-26 04:42 | disposition home or self-care (01) ==
PROVIDERS: Emergency Provider Emergency Medicine
DX: B34.9 Viral infection, unspecified (principal); R11.0 Nausea; R20.0 Anesthesia of skin; R07.89 Other chest pain; M79.602 Pain in left arm; R05.9 Cough, unspecified; Z03.818 Encounter for observation for suspected exposure to other biological agents ruled out; Z79.899 Other long term (current) drug therapy
CPT/HCPCS: 80053; 81003; 83735; 83880; 84484; 85025; 87637; 93005; 99283; 99284

== ENCOUNTER → 2024-12-25 21:32 | Outpatient (BNV) | payer MEDICAID, SELFPAY | PROVIDERS: Emergency Provider Emergency Medicine; Visit Provider Internal Medicine Cardiovascular Disease | DX: I45.10 Unspecified right bundle-branch block (principal) | CPT/HCPCS: 93010 ==

== ENCOUNTER 2025-03-08 10:20 | Emergency (ER) | payer MEDICAID, SELFPAY ==
--- NOTE | ~2025-03-08 | XR_ITS ---
CLINICAL HISTORY: ches tpain 2 view chest x-ray. Comparison: CR/SR - XR CHEST 1 VIEW - 12/23/24 13:36 EDT CR - XR CHEST 1V - 12/07/24 14:28 EDT Findings: Normal lung volumes. Lungs are clear. No pneumothorax or pleural effusion. Heart size normal. No passive venous congestion. No midline shift or tracheal deviation. No acute fracture. Impression: 1. No acute cardiopulmonary disease. This document has been electronically signed by: Vinicio Contreras MD on 03/08/2025 12:29:37
[2025-03-08 10:24] VITALS: BP 136/68; PULSE 66; RESP 18; TEMP 36.6; O2SAT 99; BMI 46.3
--- NOTE | 2025-03-08 10:28 | ECG_ITS ---
Test Reason : cp Blood Pressure : */* mmHG Vent. Rate : 68 BPM Atrial Rate : 68 BPM P-R Int : 170 ms QRS Dur : 106 ms QT Int : 346 ms P-R-T Axes : 17 5 32 degrees QTcB Int : 367 ms Normal sinus rhythm with sinus arrhythmia Minimal voltage criteria for LVH, may be normal variant ( R in aVL ) Borderline ECG When compared with ECG of 25-Dec-2024 21:31, No significant change was found Referred By: Generic ED Physician Electronically Signed By: ANITA GONG
[2025-03-08 10:46] LABS: MANUAL DIFF FLAG NO
[2025-03-08 10:48] LABS: Hematocrit 43.6 % (42.0-52.0); Hemoglobin 14.6 g/dl (14.0-18.0); Imm Gran Abs Auto 0.02 X10*3/uL (0.00-0.03); Imm Gran Pct Auto 0.3 % (0.0-0.4); Lymphocytes Absolute Auto 1.5 X10*3/uL (1.2-4.9); Mean Corpuscular HGB Conc 33.5 g/dl (31.0-36.0); Mean Corpuscular Hemoglobin 29.6 pg (27.0-33.0); Mean Corpuscular Volume 88.3 fL (80.0-98.0); NRBC Abs Auto 0.000 X10*3/uL (0.0-0.012); NRBC Pct Auto 0.0 /100WBC (0.0-0.2); Platelet Count 346 X10*3/uL (160-400); Red Blood Count 4.94 X10*6/uL (4.60-5.80); White Blood Count 6.2 X10*3/uL (4.8-10.8)
[2025-03-08 11:04] LABS: Alanine Aminotransferase 32 U/L (0-40); Albumin Level 4.5 g/dL (3.5-5.0); Alkaline Phosphatase 60 U/L (39-117); Anion Gap 13 (12-20); Aspartate Amino Transferase 24 U/L (5-37); Blood Urea Nitrogen 14 mg/dL (9-16); Calcium 9.5 mg/dL (8.4-10.2); Carbon Dioxide 23 mmol/L (22-29); Chloride 106 mmol/L (96-108); Creatinine Clr Calc Pharmacy 211.7; Estimated Glomerular Filt Rate > 60; Potassium 4.2 mmol/L (3.3-5.1); Sodium 138 mmol/L (135-145); Total Protein 7.7 g/dL (6.5-8.0)
[2025-03-08 11:13] LABS: Troponin-I High Sensitivity < 2.7 ng/L (<3.5-35.0)
[2025-03-08 11:15] LABS: IDNOW Serial# 58CA691E; Influenza B2 Negative (Negative)
[2025-03-08 11:20] LABS: IDNOW Serial# 55D5AD1C
[2025-03-08 11:21] LABS: COVID-19 Test Negative (Negative)
--- NOTE | 2025-03-08 11:39 | ED_ITS ---
HPI - URI/Sore Throat General Chief Complaint: Upper Respiratory Symptoms Stated Complaint: Sinus Infection Lung Pain Time Seen by Provider: 03/08/25 12:36 Source: patient Mode of arrival: ambulatory Limitations: no limitations History of Present Illness ED Provider: Shagufta Nieves APRN HPI Narrative: 24 yo male with history of IBS here with complaints of chest pain worsened with coughing, breathing and with movement. Feels like he has chest congestion with non productive cough as well as sinus pain/pressure and nasal congestion. No fevers, chills, SOB, leg swelling or leg pain, vomiting, diarrhea, skin rash, neck pain or neck stiffness. No sick contact. No recent travel. Denies smoking or vaping history. Related Data Home Medications ?Medication ?Instructions ?Recorded ?Confirmed fluticasone propionate 50 1 - 2 spray intranasal DAILY PRN 01/23/22 05/26/22 mcg/actuation nasal spray,suspension [id number] 250 2 tab PO Q8H PRN he adache 05/26/22 05/26/22 mg-250 mg-65 mg tablet (Migraine Relief) methylcellulose (laxative) 500 mg 500 mg PO BID PRN 05/26/22 tablet (Citrucel) quetiapine 25 mg tablet 12.5 mg PO BID 05/26/2205/14 trazodone 100 mg tablet 100 mg PO BEDTIME 05/26/22 0 05/26/22 Previous Rx's ?Medication ?Instructions ?Recorded gabapentin 100 mg capsule 100 - 300 mg (1 - 3 x 100 mg ) PO 05/26/22 BEDTIME 30 days #90 caps ibuprofen 600 mg tablet 600 mg PO BID PRN pain 30 da ys #60 05/26/22 tabs magnesium oxide 400 mg (241.3 mg 400 mg PO BEDTIME 30 days #30 tabs 05/26/22 magnesium) tablet naratriptan 2.5 mg tablet 1.25 - 2.5 mg (0.5 - 1 x 2.5 mg) 05/26/22 PO .COMPLEX PRN migraine headache 30 days #12 tabs riboflavin (vitamin B2) 400 mg 400 mg PO DAILY 30 days #30 tabs 05/26/22 tablet fluticasone furoate 27.5 1 spray intranasal DAILY #5. 9 mL 01/11/23 mcg/actuation nasal spray,suspension [id number] 3.3 1 appl otic (ears) QID #10 mL 01/11/23 mg-3 mg-10 mg-0.5 mg/mL ear drops,susp (Cortisporin-TC) azithromycin 250 mg tablet See Rx Instructions PO .COM PLEX #6 07/22/24 tabs prednisone 20 mg tablet 40 mg (2 x 20 mg) PO DAILY # 10 tabs 07/22/24 dicyclomine 10 mg capsule 10 mg PO TID PRN abdominal p ain 09/22/24 #10 caps albuterol sulfate 90 mcg/actuation 2 puff inhalation Q ID PRN 12/07/24 aerosol inhaler (Ventolin HFA) shortness of breath or wheezing #6.7 grams azithromycin 250 mg tablet See Rx Instructions PO .COM PLEX #6 12/07/24 tabs azithromycin 250 mg tablet See Rx Instructions PO .COM PLEX #6 03/08/25 tabs Allergies Allergy/AdvReac Type Severity Reaction Status Date / Time Seasonal Allergies Allergy Intermediate Runny Nose Verified 03/08/25 10:26 Review of Systems 2 Review of Systems: Yes all other systems are reviewed and are negative Constitutional: Constitutional: Reports no additional constitutional complaints, Denies body ache(s), Denies chills, Denies fever(s), Denies headache(s) and Denies weakness Eyes: Eyes: Reports no additional eye complaints and Denies change in vision ENT: Reports system reviewed and no additional complaints, except as documented, Denies dizziness, Denies headache(s), Reports nasal congestion, Denies nasal discharge, Denies neck pain, Reports sinus pain and Reports sinus pressure Cardiovascular: Cardiovascular: Reports no additional cardiovascular complaints, Reports chest pain, Denies leg edema and Denies dyspnea Respiratory: Respiratory: Reports no additional respiratory complaints, Reports cough and Denies dyspnea Gastrointestinal: Gastrointestinal: Reports no additional gastrointestinal complaints, Denies abdominal pain, Denies diarrhea, Denies nausea and Denies vomiting Genitourinary: Genitourinary: Denies urinary incontinence Musculoskeletal: Musculoskeletal: Reports no additional musculoskeletal complaints, Denies back pain, Denies arthralgias, Denies joint swelling, Denies neck pain, Denies numbness and Denies tingling Integumentary/Breasts: Skin/Breast: Reports system reviewed and no additional complaints, except as docu and Denies rash Neurologic: Reports system reviewed and no additional complaints, except as documented, Denies Abnormal speech present, Denies dizziness, Denies headache(s), Denies numbness, Denies tingling and Denies weakness PMFSH Past Medical History Attestation statement: The following information was validated with the patient. Source: old records reviewed and nursing notes reviewed Medical History Obesity Insomnia ADHD Surgical History Hx of wisdom tooth extraction Hx of toe surgery History of placement of ear tubes Family History Family History Paternal Grandfather Diabetes Hypertension Mother Headache Seizures Migraine-cluster headache syndrome Myocardial infarction Hypertension Social History Social History Household Members: Family Household Members Other:: Mother, Sisters, brothers, grandparent, and 3 dogs Alcohol intake: current Alcohol intake frequency: does not drink Patient Tobacco Use Status: Never used Tobacco Current occupational status: unemployed Physical Exam 2 Vital Signs: Vital Signs: Last Vital Signs Temp 97.2 F 03/08/25 12:36 Pulse 62 03/08/25 12:36 Resp 20 03/08/25 12:36 BP 147/77 H 03/08/25 12:36 Pulse Ox 96 03/08/25 12:36 O2 Del Method Room Air 03/08/25 12:36 BMI result Body Mass Index 46.3 Const: General: cooperative, healthy appearing, comfortable and no acute distress Orientation/consciousness: patient oriented x3 Limitations: no limitations HEENT: Head: Yes normal to inspection Ears: hearing grossly normal bilaterally, mastoids normal, no periauricular adenopathy and TM abnormal (bilateral ) erythematous General nose exam: Normal external nose present Face and sinus: Yes normal facial exam Mouth: Normal oral and palatal mucosa present Throat: Yes posterior oropharynx normal, Yes tonsils normal and Yes uvula midline Eyes: General: appearance normal, both eyes and all related structures P upils: Equal, round and reactive pupils present Neck: Neck: Yes normal visual inspection, Yes full ROM, Yes no lymphadenopathy and Yes no meningeal signs Chest: Chest palpation & inspection: normal inspection of the chest Resp: Effort & Inspection: normal respiratory effort Auscultation: clear to auscultation bilaterally Cardio: Rate: regular rate Rhythm: regular rhythm Peripheral pulses: P eripheral pulses 2+ throughout GI: Inspection: Yes normal to inspection Palpation (GI): Soft to palpation and nontender Auscultation: normal bowel sounds Back/Spine/Pelvis: Thoracic/Lumbar Spine: thoracic and lumbar spine normal to inspection Skin: General skin exam: no rashes or lesions noted Neuro: General: patient oriented x3, no meningeal signs, no focal motor deficits and normal sensation to monofilament Cranial nerves: Yes Equal, round and reactive pupils present Cognition (Neuro): normal cognition S peech: No Abnormal speech present Gait exam (Neuro): Normal gait present M otor exam (neuro): 5/5 motor strength present throughout Extrem: General: Yes normal to inspection, Yes no calf tenderness and Yes normal gait Course Course Course Narrative: Shagufta Nieves PASSENGER CAR CLEANING SUPERVISOR 03/08 1442 This is a rapid medical exam. Deferred additional HPI, ROS, PE to primary provider. 24 yo male with history of IBS here with complaints of chest pain worsened with coughing, breathing and with movement. Feels like he has chest congestion with non productive cough. No fevers, chills. No sick contact. No recent travel. Denies smoking or vaping history. Labs, serology, EKG and CXR ordered from triage VSS Reevaluation(s) Reevaluation #1: Labs show no acute finding. EKG is nonischemic. Chest x-ray is negative for any pneumonia. Viral testing is negative. Patient does have bilateral AOM on exam and he likely has bronchitis due to his length of symptoms. Therefore I will treat him with antibiotic. He has an albuterol inhaler at home which is use in the past for respiratory infection. Recommend he continue to use this as needed. Recommend supportive measures with Motrin Tylenol home and rest. Reviewed worrisome signs symptoms of when to return to the emergency room. Comfortable plan for discharge home. Medical Decision Making Medical Decision Making [facility] Narrative: 24 yo male with history of IBS here with complaints of chest pain worsened with coughing, breathing and with movement. Feels like he has chest congestion with non productive cough as well as sinus pain/pressure and nasal congestion. No fevers, chills, SOB, leg swelling or leg pain, vomiting, diarrhea, skin rash, neck pain or neck stiffness. No sick contact. No recent travel. Denies smoking or vaping history. Bilateral AOM on exam Otherwise benign VSS WIll obtain labs, EKG, CXR, viral testing Differential Diagnosis Differential Diagnoses: The differential diagnosis associated with the presentation includes influenza, viral syndrome, AOM, sinusitis, bronchitis Low suspician for ACS (negative trop/EKG, low suspician for pericarditis or myocarditis based on HPI, clinical exam and normal trop/EKG) Less likely PE with PERC 0 Admission/Observation Consideration of admission/observation: Escalation of care including admission/observation considered Lab Data MDM Lab Attestation statement: I reviewed the patient's lab results. 03/08/25 10:41 03/08/25 10:41 Labs: Lab Results 03/08/25 Range/Units 10:41 WBC 6.2 (4.8-10.8) X10*3/uL RBC 4.94 (4.60-5.80) X10*6/uL Hgb 14.6 (14.0-18.0) g/dl Hct 43.6 (42.0-52.0) % MCV 88.3 (80.0-98.0) fL MCH 29.6 (27.0-33.0) pg MCHC 33.5 (31.0-36.0) g/dl RDW 13.0 (11.0-16.0) % Plt Count 346 (160-400) X10*3/uL MPV 9.6 (9.4-12.4) fL Immature Gran % (Auto) 0.3 (0.0-0.4) % Neut % (Auto) 59.8 (45-73) % Lymph % (Auto) 24.7 (20-40) % Mcpherson % (Auto) 11.0 (2-11) % Eos % (Auto) 3.2 (0-4) % Baso % (Auto) 1.0 (0-2) % Lymph # (Auto) 1.5 (1.2-4.9) X10*3/uL Mcpherson # (Auto) 0.7 (0.1-1.2) X10*3/uL Eos # (Auto) 0.2 (0.0-0.4) X10*3/uL Baso # (Auto) 0.1 (0.0-0.2) X10*3/uL Abs Immat Gran (auto) 0.02 (0.00-0.03) X10*3/uL Absolute Neuts (auto) 3.7 (2.0-8.3) x10*3/uL Absolute Nucleated RBC 0.000 (0.0-0.012) X10*3/uL Nucleated RBC % (auto) 0.0 (0.0-0.2) /100WBC Sodium 138 (135-145) mmol/L Potassium 4.2 (3.3-5.1) mmol/L Chloride 106 (96-108) mmol/L Carbon Dioxide 23 (22-29) mmol/L Anion Gap 13 (12-20) BUN 14 (9-16) mg/dL Creatinine 0.84 (0.5-1.4) mg/dL Estim Creat Clear Calc 211.7 Estimated GFR > 60 Random Glucose 103 (60-115) mg/dL Calcium 9.5 (8.4-10.2) mg/dL Total Bilirubin 0.6 (0.0-1.0) mg/dL AST 24 (5-37) U/L ALT 32 (0-40) U/L Alkaline Phosphatase 60 (39-117) U/L Troponin I High Sens < 2.7 (<3.5-35.0) ng/L Total Protein 7.7 (6.5-8.0) g/dL Albumin 4.5 (3.5-5.0) g/dL COVID-19 (AJ) Negative (Negative) COVID-19 Clin Com See Note Influenza Type A (ENDY) Negative (Negative) Influenza Type B (ENDY) Negative (Negative) Influenza A & B Note See Note Independent Interpretation I performed an independent interpretation of an: EKG and Plain X-Ray Interpretation: I independently viewed the EKG which shows normal sinus rhythm with a sinus arrhythmia with a rate of 68, normal TN, normal QRS, normal QT I independently viewed the chest x-ray and agree with the radiology report Radiology Impression Discussion of test interpretation with radiology: I have reviewed the radiologist's reading. Radiologist Impression: [address] [address] XRay Report Signed Patient: Terence Soto MR#: [id number] : 2000 Acct:[id number] Age/Sex: 24 / M ADM Date: 03/08/25 Loc: HO.ED Attending Dr: Ordering Physician: Generic ED Physician Date of Service: 03/08/25 Procedure(s): XR chest 2V Accession Number(s): [id number] cc: Generic ED Physician; Marley Tomlinson MD~ Reason for Exam: ches tpain CLINICAL HISTORY: ches tpain 2 view chest x-ray. Comparison: CR/SR - XR CHEST 1 VIEW - 12/23/24 13:36 EDT CR - XR CHEST 1V - 12/07/24 14:28 EDT Findings: Normal lung volumes. Lungs are clear. No pneumothorax or pleural effusion. Heart size normal. No passive venous congestion. No midline shift or tracheal deviation. No acute fracture. Impression: 1. No acute cardiopulmonary disease. This document has been electronically signed by: Vinicio Contreras MD on 03/08/2025 12:29:37 Prescription Management I considered prescription management with: Pain Medication and Antibiotic Discharge Plan Discharge Clinical Impression: Bronchitis, Otitis media Patient Disposition: Home, Self-Care Instructions: Ear Infection (ED), Acute Bronchitis (ED) Additional Instructions: Use albuterol 2 puffs every 4 hours for cough or tightness Take antibiotics as prescribed Alternate Motrin or Tylenol for pain as needed Prescriptions: New azithromycin 250 mg tablet See Rx Instructions .ROUTE .COMPLEX Qty: 6 0RF Rx Instructions: For 250 mg dose pack: take 500 mg today (day 1), then 250 mg for 4 days (days 2-5) No Action fluticasone furoate 27.5 mcg/actuation spray,suspension 1 spray intranasal DAILY Qty: 5.9 0RF Rx Instructions: into each nostril Cortisporin-TC 3.3-3-10-0.5 mg/mL drops,suspension 1 appl otic (ears) QID Qty: 10 0RF Rx Instructions: 7 days dicyclomine 10 mg capsule 10 mg PO TID PRN (Reason: abdominal pain) Qty: 10 0RF azithromycin 250 mg tablet See Rx Instructions .ROUTE .COMPLEX Qty: 6 0RF Rx Instructions: For 250 mg dose pack: take 500 mg today (day 1), then 250 mg for 4 days (days 2-5) prednisone 20 mg tablet 40 mg PO DAILY Qty: 10 0RF azithromycin 250 mg tablet See Rx Instructions .ROUTE .COMPLEX Qty: 6 0RF Rx Instructions: For 250 mg dose pack: take 500 mg today (day 1), then 250 mg for 4 days (days 2-5) albuterol sulfate [Ventolin HFA] 90 mcg/actuation HFA aerosol inhaler 2 puff inhalation QID PRN (Reason: shortness of breath or wheezing) Qty: 6.7 0RF fluticasone propionate 50 mcg/actuation spray,suspension 1 - 2 spray intranasal DAILY PRN trazodone 100 mg tablet 100 mg PO BEDTIME Citrucel 500 mg tablet 500 mg PO BID PRN quetiapine 25 mg tablet 12.5 mg PO BID Migraine Relief 250-250-65 mg tablet 2 tab PO Q8H PRN (Reason: headache) riboflavin (vitamin B2) 400 mg tablet 400 mg PO DAILY 30 Days Qty: 30 6RF magnesium oxide 400 mg (241.3 mg magnesium) tablet 400 mg PO BEDTIME 30 Days Qty: 30 6RF Rx Instructions: may hold for loose stools naratriptan 2.5 mg tablet 1.25 - 2.5 mg PO .COMPLEX PRN (Reason: migraine headache) 30 Days Qty: 12 3RF Rx Instructions: 1.25 - 2.5 mg orally, msy repeat in 2 hrs, may take w/ Ibuprofen, prn ibuprofen 600 mg tablet 600 mg PO BID PRN (Reason: pain) 30 Days Qty: 60 3RF gabapentin 100 mg capsule 100 - 300 mg PO BEDTIME 30 Days Qty: 90 3RF Referrals: Marley Tomlinson MD [Primary Care Provider, Medical] Stand Alone Forms: Work/School Release Print Language: Somali
[2025-03-08 12:36] VITALS: BP 147/77; PULSE 62; RESP 20; TEMP 36.2; O2SAT 96
--- OUTSIDE RECORDS SUMMARY | 2025-03-08 12:47 | XMS_ITS | Encounter Summary ---
Author Organization [employer] Address [address] [facility] [place] [address] Care Team Providers Care Fruit Or Nut Farm Worker Name Role Phone Marley Tomlinson MD Primary Care Provider [phone] Reason for Visit * Reason Comments Med Refill Encounter Details Date Type Department Care Team ([facility] st Contact Info) Description 01/26/2023 Refill [facility] MED & PEDS [address] [place] [address] Marley Tomlinson MD [address] [place] [address] Developmental academic disorder Social History Tobacco Use [...] Time PHQ-9 Depression Total Score: 7 05/17/19 9:49 AM EST documented as of this encounter Care Teams Fruit Or Nut Farm Worker Relationship Specialty Start Date End Date Marley Tomlinson MD [address] [place] [address] PCP - General Family Medicine 10/24/21 Augustine magaña FlagsetterPlane Runner 05/28/24 documented as of this encounter
--- OUTSIDE RECORDS SUMMARY | 2025-03-08 12:47 | XMS_ITS | Encounter Summary ---
Author Organization [employer] Address [address] [facility] [address] [place] [address] Care Team Providers Care Rebar Fabricator Name Role Phone Marley Tomlinson MD Primary Care Provider Reason for Visit * Reason Comments Med Refill Encounter Details Date Type Department Care Team ([facility] st Contact Info) Description 02/11/2025 Refill [facility] [address] [place] [address] Marley Tomlinson MD [address] [place] [address] Social History Tobacco Use Types Packs/Day Years [...] is your housing situation today? I have shnatanu reyes 11/03/[address] you li ve. Do you have problems with any of the following? None of the above 11/03/2024 Food Insecurity Answer Date Recorded Within the past 12 months, y ou worried that your food would run out before you got money to buy more: Never True 11/03/2024 Within the past 12 months,th e food you bought just didn't last and you didn't have enough money to get more: Never True Transportation Answer Date Recorded In the past 12 months, has l ack of transportation kept you from medical appts, meetings, work or from getting things needed for daily living? Yes, it has kept me from medical appointments or getting medications. 11/03/2024 Utilities Answer Date Recorded In the past 12 months, has t he electric, gas, oil or water company threatened to shut off services in your home? No 11/03/2024 Depression Answer Date Recorded Patient Health Questionnaire-2 Score 2 09/06/2023 Internet Access Answer Date Recorded Internet Access Q1 Yes 11/03/2024 Internet Access Q2 Not on file 11/03/2024 Sex and Gender Information Value Date Recorded [...] documented as of this encounter Care Teams Rebar Fabricator Relationship Specialty Start Date End Date Marley Tomlinson MD [address] [place] [address] PCP - General Family Medicine 10/24/21 Augustine magaña Melter HelperPump Oiler 05/28/24 documented as of this encounter
--- OUTSIDE RECORDS SUMMARY | 2025-03-08 12:47 | XMS_ITS | Encounter Summary ---
Author Organization [employer] Address [address] [facility] [address] [place] [address] Care Team Providers Care Director Life Insurance Name Role Phone Marley Tomlinson MD Primary Care Provider [phone] Reason for Visit * Reason Onset Date Comments Nurse Triage 03/06/2025 Encounter Details Date Type Department Care Team ([facility] Contact Info) Description 03/06/2025 Telephone [facility] MED & PEDS [address] [place] [address] Marley Tomlinson MD [address] [place] [address] Nurse Triage Social History Tobacco Use Types [...] housing situation today? I have shantanu reyes 11/03/[address] you [...] encounter Miscellaneous Notes * Telephone Encounter - Trupti Murray RN - 03/06/2025 4:27 PM EDT TC placed to patient. Patient c/o? of Sinus infection. Patient reported pressure in his face. green/blood-streaked mucus, coughing, sneezing and visual disturbances that started last week. Patient also c/o of an Eczema flare-up located on his right elbow and bilateral hands. Patient described the areas as dry/cracked and reddened. Patient reported he is applying cream to the areas without any relief. RN advised patient to come into the [facility] for further evaluation. Patient agreed to the plan. Protocol Used: Rash or Redness - Localized (Adult) Protocol-Based Disposition: See in Office or Video Visit Today Video visit offer not recorded Positive Triage Questions: * Patient wants to be seen * Mild localized rash * All higher-acuity triage questions were negative Care Advice Discussed: * Reassurance and Education - Mild Localized Rash * Avoid the Cause * Reasons To Call Back - Rash spreads or becomes worse - Rash lasts longer than 1 week - You become worse * Telephone Encounter - Bill Bella - 03/06/2025 3:21 PM EDT Symptoms: Eczema - Caller Reports, Sinus Symptoms Outcome: Schedule an appointment to be seen within 24 hours Reason: Caller denied all higher acuity questions The caller accepted this outcome. Contact pt at [phone] documented in this encounter Plan of Treatment Not on file documented as of this encounter Visit Diagnoses Not on filedocumented in this encounter Additional Health Concerns Assessment Noted Time PHQ-9 Depression Total Score: 13 09/05/ 024 2:07 PM EDT documented as of this encounter Care Teams Director Life Insurance Relationship Specialty Start Date End Date Marley Tomlinson MD [address] [place] [address] PCP - General Family Medicine 10/24/21 Augustine magaña Manager ArmyOperating System Designer 05/28/24 documented as of this encounter
--- OUTSIDE RECORDS SUMMARY | 2025-03-08 12:47 | XMS_ITS | Encounter Summary ---
Author Organization [employer] Address [address] [facility] [place] [address] Care Team Providers Care Hospital Pharmacy Director Name Role Phone Marley Tomlinson MD Primary Care Provider [phone] Encounter Details Date Type Department Care Team [...] on filedocumented in this encounter Care Teams Hospital Pharmacy Director Relationship Specialty Start Date End Date Marley Tomlinson MD [address] [place] [id number] PCP - General Family Medicine 10/24/21 Augustine magaña Track PatrolReturned Goods Receiving Clerk 05/28/24 documented as of this encounter
--- OUTSIDE RECORDS SUMMARY | 2025-03-08 12:47 | XMS_ITS | Encounter Summary ---
Author Organization [employer] Address [address] [place] [address] Care Team Providers Care Literacy Tutor Name Role Phone Marley Tomlinson MD Primary Care Provider Encounter Details Date Type Department Care Team ([facility] Contact Info) Description 03/08/2025 Orders Only GENERIC EXTERNAL DATA DEPARTMENT Provider, [...] Procedure Name Priority Date/Time Associated Diagnosis Comments XR CHEST 2 VIEWS Routine 03/08/2025 12:2 9 PM EDT INFLUENZA A B2 ID NOW ([employer]) Routine 03/08/2025 10:41 AM EDT COVID-19 ID NOW ([facility]) Routine 03/08/2025 10:41 AM EDT HIGH SENSITIVITY TROPONIN I Routine 03/08/2025 10:41 AM EDT CBC WITH AUTO DIFFERENTIAL Routine 03/08/2025 10:41 AM EDT COMPREHENSIVE METABOLIC PANEL Routine 03/08/2025 10:41 AM EDT documented in this encounter Results * XR Chest 2 Views (03/08/2025 12:29 PM EDT) Anatomical Region Laterality Modality Chest Radiographic Divina ging 03/08/2025 12:2 9 PM EDT Narrative 03/08/2025 12:31 PM EDT [address] [address] XRay Report Signed Patient: Terence Soto MR#: [id number] : 2000 Acct:[id number] Age/Sex: 24 / M ADM Date: 03/08/25 Loc: HO.ED Attending Dr: Ordering Physician: Generic ED Physician Date of Service: 03/08/25 Procedure(s): XR chest 2V Accession Number(s): [id number] cc: Generic ED Physician; Marley Tomlinson MD Reason for Exam: ches tpain CLINICAL HISTORY: ches tpain 2 view chest x-ray. Comparison: CR/SR - XR CHEST 1 VIEW - 12/23/24 13:36 EDT CR - XR CHEST 1V - 12/07/24 14:28 EDT Findings: Normal lung volumes. Lungs are clear. No pneumothorax or pleural effusion. Heart size normal. No passive venous congestion. No midline shift or tracheal deviation. No acute fracture. Impression: 1. No acute cardiopulmonary disease. 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 Comparison: CR/SR - XR CHEST 1 VIEW - 12/23/24 13:36 EDT CR - XR CHEST 1V - 12/07/24 14:28 EDT Findings: Normal lung volumes. Lungs are clear. No pneumothorax or pleural effusion. Heart size normal. No passive venous congestion. No midline shift or tracheal deviation. No acute fracture. Impression: 1. No acute cardiopulmonary disease. 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 TheSARS-CoV2 RNA is generally detectable in respiratory samplesduring the acute phase of infection. Positive results areindicative of the presence of SARS-CoV-2 RNA; clinicalcorrelation with patient history and other diagnosticinformation is necessary to determine patient infectionstatus. Positive results do not rule out bacterial infectionor co- infection with other viruses.Testing facilities within the [facility] are required to report all positive results tothe appropriate public health authorities.Negative results should be treated as presumptive and, ifinconsistent with clinical signs and symptoms or necessaryfor patient management, should be tested with differentauthorized or cleared molecular tests. Negative results donot preclude SARS-CoV2 RNA infection and should not be usedas the sole basis for patient management decisions. Negativeresults should be considered in the context of a patient'srecent exposures, history and the presence of clinical signsand symptoms consistent with COVID-19.This test has been authorized by the FDA under an EmergencyUse Authorization (EUA) for use by authorized laboratories.Testing performed on the [facility] ID NOW utilizing NAAT. 03/08/2025 10:4 1 AM EDT 03/08/2025 10:45 AM EDT Generic External Data Provider LAB MOLECULAR MAURA GNOSTICS ORDERABLES Final Result Performing Organization Address [facility] Co de Phone Number [facility] [address] [place] [phone] * Influenza A B2 ID NOW ([employer]) (03/08/2025 10:41 AM EDT) IDNOW SERIAL# [id number] [facility] Influenza A Negative Negative [facility] Influenza B2 Negative Negative [facility] Influenza A B2 Note See Note [facility] Comment:The [facility] ID NOW In fluenza A B2 test is used for thequalitative detection of influenza A and B from patientswith signs and symptoms of respiratory infection.Negative results do not preclude influenza virus infectionand should not be used as the sole basis for diagnosis,treatment or other patient management decisions.There is a risk of false negative results due to thepresence of variants in the viral targets of the assay, lowlevels of virus in the specimen and co- infection withRespiratory Syncytial Virus. 03/08/2025 10:4 1 AM EDT 03/08/2025 10:45 AM EDT Generic External Data Provider LAB MICROBIOLOGY - GENERAL ORDERABLES Final Result Performing Organization Address [facility] de Phone Number [facility] [address] [place] [phone] * High Sensitivity Troponin I (03/08/2025 10:41 AM EDT) TROPONIN I HIGH SENSITIVITY <2.7 <3.5 - 35.0 ng/L [facility] Comment:The [facility] high sens itivity Troponin-I results should beused in conjunction with other diagnostic information suchas ECG, clinical observations and information, and patientsymptoms to aid in the diagnosis of MS. 03/08/2025 10:4 1 AM EDT 03/08/2025 10:45 AM EDT us Generic External Data Provider LAB BLOOD ORDERAB LES Final Result [facility] [address] [place] [phone] * Comprehensive Metabolic Panel (03/08/2025 10:41 AM EDT) Sodium 138 135 - 145 mmol/L [facility] Potassium 4.2 3.3 - 5.1 mmol/L [facility] Chloride 106 96 - 108 mmol/L [facility] Carbon Dioxide 23 22 - 29 mmol/L [facility] Anion Gap 13 12 - 20 [facility] Urea Nitrogen (BUN) 14 9 - 16 mg/dL [facility] Creatinine, Serum 0.84 0.5 - 1.4 mg/dL [facility] Creatinine Clr Calc Pharmacy 211.7 [facility] Comment:eGFR (calculated fro m the MDRD study equation) and eCrCl(calculated from the Cockcroft-Gault equation) are based ondifferent parameters and may not yield comparable results.If eCrCl result is absurd, please check patient'sheight/weight. Estimated Glomerular Filt Rate >60 [facility] Comment:Chronic Kidney Disea se: Estimated GFR < 60 mL/min/1.86i4Rghatq Kidney Disease: Estimated GFR < 15 mL/min/1.73m2 Glucose 103 60 - 115 mg/dL [facility] Calcium 9.5 8.4 - 10.2 mg/dL [facility] Bilirubin, Total 0.6 0.0 - 1.0 mg/dL [facility] Aspartate Amino Transferase 24 5 - 37 U/L [facility] Alanine Aminotransferase 32 0 - 40 U/L [facility] Total Protein 7.7 6.5 - 8.0 g/dL [facility] Albumin Level 4.5 3.5 - 5.0 g/dL [facility] Alkaline Phosphatase 60 39 - 117 U/L [facility] 03/08/2025 10:4 1 AM EDT 03/08/2025 10:45 AM EDT us Generic External Data Provider LAB BLOOD ORDERAB LES Final Result [facility] [address] [place] [phone] * CBC auto differential (03/08/2025 10:41 AM EDT) White Blood Count 6.2 4.8 - 10.8 X10*3/uL [facility] Red Blood Count 4.94 4.60 - 5.80 X10*6/uL [facility] Hemoglobin 14.6 14.0 - 18.0 g/dl [facility] Hematocrit 43.6 42.0 - 52.0 % [facility] Mean Corpuscular Volume 88.3 80.0 - 98.0 fL [facility] Mean Corpuscular Hemoglobin 29.6 27.0 - 33.0 pg [facility] Mean Corpuscular HGB Conc 33.5 31.0 - 36.0 g/dl [facility] Red Cell Distribution Width 13.0 11.0 - 16.0 % [facility] Platelet Count 346 160 - 400 X10*3/uL [facility] Mean Platelet Volume 9.6 9.4 - 12.4 fL [facility] Neutrophils Percent Auto 59.8 45 - 73 % [facility] Imm Gran Pct Auto 0.3 0.0 - 0.4 % [facility] Lymphocytes Percent Auto 24.7 20 - 40 % [facility] Monocytes Percent Auto 11.0 2 - 11 % [facility] Eosinophils Percent Auto 3.2 0 - 4 % [facility] Basophils Percent Auto 1.0 0 - 2 % [facility] NRBC Pct Auto 0.0 0.0 - 0.2 /100WBC [facility] Neutrophils Absolute Auto 3.7 2.0 - 8.3 x10*3/uL [facility] Imm Gran Abs Auto 0.02 0.00 - 0.03 X10*3/uL [facility] Lymphocytes Absolute Auto 1.5 1.2 - 4.9 X10*3/uL [facility] Monocytes Absolute Auto 0.7 0.1 - 1.2 X10*3/uL [facility] Eosinophils Absolute Auto 0.2 0.0 - 0.4 X10*3/uL [facility] Basophils Absolute Auto 0.1 0.0 - 0.2 X10*3/uL [facility] NRBC Abs Auto 0.000 0.0 - 0.012 X10*3/uL [facility] 03/08/2025 10:4 1 AM EDT 03/08/2025 10:45 AM EDT us Generic External Data Provider LAB BLOOD ORDERAB LES Final Result [facility] [address] [place] [phone] documented in this encounter Visit Diagnoses Not on filedocumented in this encounter Additional Health Concerns Assessment Noted Time PHQ-9 Depression Total Score: 13 09/05/2 024 2:07 PM EDT documented as of this encounter Care Teams Literacy Tutor Relationship Specialty Start Date End Date Marley Tomlinson MD [address] [place] [address] PCP - General Family Medicine 10/24/21 Augustine magaña Laborer HoistingWelder Boilermaker 05/28/24 documented as of this encounter
--- OUTSIDE RECORDS SUMMARY | 2025-03-08 12:48 | XMS_ITS | Encounter Summary ---
Author Organization [employer] Address [address] [place] [address] Care Team Providers Care Systems Integration Manager Name Role Phone Marley Tomlinson MD Primary Care Provider [phone] Encounter Details Date Type Department Care Team ([facility] Contact Info) Description 04/09/2024 Orders Only [facility] [address] [place] [address] Provider, MD Emile Social History Tobacco Use [...] documented as of this encounter Care Teams Systems Integration Manager Relationship Specialty Start Date End Date Marley Tomlinson MD [address] [place] [address] PCP - General Family Medicine 10/24/21 Augustine magaña Warp CoilerSerials Librarian 05/28/24 documented as of this encounter
--- OUTSIDE RECORDS SUMMARY | 2025-03-08 12:48 | XMS_ITS | Encounter Summary ---
Author Organization [employer] Address [address] [place] [address] Care Team Providers Care Cashier Office Name Role Phone Marley Tomlinson MD Primary Care Provider [phone] Encounter Details Date Type Department Care Team ([facility] Contact Info) Description 12/17/2023 Telephone [facility] [address] [place] [address] Marley Tomlinson MD [address] [place] [address] Social History Tobacco Use Types Packs/Day Years [...] Didi Art - 12/17/2023 9:36 AM EDT .c documented in this encounter Plan of Treatment Not on file documented as of this encounter Visit Diagnoses Not on filedocumented in this encounter Additional Health Concerns Assessment Noted Time PHQ-9 Depression Total Score: 13 024 2:07 PM EDT documented as of this encounter Care Teams Cashier Office Relationship Specialty Start Date End Date Marley Tomlinson MD [address] [place] [address] PCP - General Family Medicine 10/24/21 Augustine amgaña Belt PolisherEscrow Processor 05/28/24 documented as of this encounter
--- OUTSIDE RECORDS SUMMARY | 2025-03-08 12:48 | XMS_ITS | Encounter Summary ---
Author Organization [employer] Address [address] [place] [address] Care Team Providers Care Electronics Supervisor Name Role Phone Marley Tomlinson MD Primary Care Provider [phone] Reason for Visit * Reason Comments Med Refill Encounter Details Date Type Department Care Team ([facility] Contact Info) Description 02/23/2024 Refill [facility] [address] [place] [address] Marley Tomlinson MD [address] [place] [address] Social History Tobacco Use Types Packs/Day Years [...] documented as of this encounter Care Teams Electronics Supervisor Relationship Specialty Start Date End Date Marley Tomlinson MD [address] [place] [address] PCP - General Family Medicine 10/24/21 Augustine magaña [facility] RnFurnace Cleaner 05/28/24 documented as of this encounter
--- OUTSIDE RECORDS SUMMARY | 2025-03-08 12:48 | XMS_ITS | Clinical Summary ---
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 4 Active acetaminophen (Tylenol) 500 MG tablet Take 2 tablets (1,000 mg) by mouth every 6 (six) hours if needed for moderate pain or fever for up to 25 doses. 50 tablet 4 Active ibuprofen 400 MG tablet Take 1 tablet (400 mg) by mouth every 6 (six) hours if needed for moderate pain or fever for up to 30 doses. 30 tablet 4 Active cetirizine (ZyrTEC) 10 MG tablet Take 1 tablet (10 mg) by mouth Once per day. 30 tablet 11 4 03/24/20 25 Active QUEtiapine (SEROquel) 50 MG tablet TAKE 1 TABLET BY MOUTH AT BEDTIME 30 tablet 1 5 Active benzoyl peroxide ([employer] Advanced 3-in-1 Cleanser) 5 % external washIndications: Acne vulgaris Apply topically 2 times daily. 118 mL 2 5 09/06/19 26 Active fluticasone (Flonase) 50 MCG/ACT nasal spray INHALE 1 - 2 SPRAYS IN EACH NOSTRIL ONCE DAILY 48 g 2 5 Active propranolol (Inderal) 20 MG tabletIndication s:Chronic migraine with aura and with status migrainosus, not intractable Take 1 tablet (20 mg) by mouth 3 times daily. 90 tablet 11 5 09/19/19 26 Active aspirin-acetamin ophen-caffeine (Excedrin Migraine) 250-250-65 MG tabletIndication s:Chronic migraine with aura and with status migrainosus, not intractable Take 2 tablets by mouth every 8 (eight) hours if needed for headaches. 30 tablet 1 5 Active pantoprazole (ProtoNix) 40 MG EC tablet TAKE ONE TABLET DAILY BEFORE BREAKFAST, DO NOT BREAK, CRUSH, DISSOLVE OR CHEW 90 tablet 1 5 Active dicyclomine (Bentyl) 10 MG capsule Take 10 mg by mouth. 5 Active sertraline (Zoloft) 50 MG tablet Take 50 mg by mouth in the morning. 5 Active loratadine (Claritin) 10 MG tablet take 1 tablet (10 mg) by oral route once daily as needed for allergies 4 Active albuterol 108 (90 Base) MCG/ACT inhalerIndicatio ns:Upper airway cough syndrome Inhale 2 puffs every 4 (four) hours if needed for wheezing. 18 g 5 11/11/19 26 Active pseudoephedrine (Sudafed) 60 MG tabletIndication s:Upper airway cough syndrome Take 1 tablet (60 mg) by mouth every 6 (six) hours if needed for congestion for up to 10 days. 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 Needs SDW[place] screening. Memory deficit 05/17/2022 Assessment & Plan [...] Plan (05/17/2022 2:20 PM EST): Not impacted, teressaumen color chino In terms of his nose, no bleeding or clots, recommended vaseline in nostrils to maintain hydration. Encounters Date Type Department Care Team Description 03/08/2025 Orders Only GENERIC EXTERNAL DATA DEPARTMENT Provider, Generic External Data 03/06/2025 Telephone [facility] CHC MED & PEDS [address] [place], [place] [phone] Marley Tomlinson MD Nurse Triage 02/11/2025 Refill [facility] MEDICINE [address] [place] [address] [phone] Marley Tomlinson MD 12/25/2024 Telephone [facility] MEDICINE [address] [place] [phone] Marley Tomlinson MD ER Follow-up 12/23/2024 2:00 PM EDT Office Visit [facility] WALK-IN [facility]ENTER [address] [place] [address] [phone] Diya Blas MD 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) 12/23/2024 Travel 12/23/2024 Telephone [facility] MEDICINE [address] [place] [phone] Marley Tomlinson MD Nurse Triage 12/07/2024 Orders Only GENERIC EXTERNAL DATA DEPARTMENT Provider, Generic External Data from Last 3 Months Immunizations Immunization Administration Dates Next Due DTaP 11/29/2007, 4,04/08/2003,02/05,2002 [...] Pneumococcal Conjugate PCV 7 04/14/2004, 04/08/2003,02/05/2003,11/19 Tdap 11/10/2024,09/22/2014 Varicella 11/29/2007,09/16/2003 Social History Tobacco Use Types [...] Sign Reading Time Taken Comments Blood Pressure 135/87 12/23/2024 12:09 PM EDT Pulse 80 12/23/2024 12:09 PM EDT Temperature 36.8 C (98.2 F) 12/23/2024 12:09 PM EDT Respiratory Rate 17 12/23/2024 12:09 PM EDT Oxygen Saturation 98% 12/23/2024 12:09 PM EDT room air Inhaled Oxygen Concentration - - Weight 151 kg (332 lb 3.2 oz) 12/23/2024 12:09 P M EDT Height 180.3 cm (5' 11 ) 11/10/2024 2:08 PM EDT Body Mass Index 46.33 11/10/2024 2:08 PM EDT Plan of Treatment Health Maintenance Due Date Last Done Comments Chlamydia and Gonorrhea Screening 2002 Disability Screening 2002 Alcohol/Substance Use Screening 2014 Family Planning (PISQ) 2017 Meningococcal B Vaccine (1 of 2 - Standard) 2018 Dental Oral Exam 07/03/2022 12/30/2021 Dental X-Ray: Bitewings 12/31/2022 12/30/2021 Dental Prophylaxis 01/15/2023 07/14/2022 Depression Monitoring 03/07/2024 09/06/2023, 024 Dental X-Ray: Full Mouth 12/31/2024 12/30/2021 COVID-19 Vaccine ( season) 2025 02/13/2023, 06/13/2022, 04/12/2021, Additional history exists Influenza Vaccine (#1) 2025 , 01/19/2023, 02/08/2022, Additional history exists SDOH Screening 11/03/2025 11/03/2024 Tobacco Screening 11/10/2025 11/10/2024 Lipid Panel 2028 09/10/2023 DTaP/Tdap/Td Vaccines (8 - Td or Tdap) 11/10/2034 11/10/2024, 09/22/2014, 11/29/2007, Additional history exists Zoster Vaccines (1 of 2) 2052 RSV Patients and Patients Aged 60 years or older (1 - 1-dose 75+ series) 2077 Hepatitis B Vaccines Completed 04/08/2003, 2002, 2002 HIB Vaccines Completed 12/04/2003, 03/15, 02/05/2003, Additional history exists Pneumococcal Vaccine: Pediatrics (0 to 5 Years) and At-Risk Patients (6 to 49) Years Aged Out 04/14/2004, 04/08/2003, 02/05/2003, Additional history exists No longer eligible based on patient's age to complete this topic IPV Vaccines Completed 11/29/2007, 07/12, 02/05/2003, Additional history exists HPV Vaccines Completed 10/10/2016, 01/13, 09/22/2014 Hepatitis A Vaccines Completed 10/10/2016, 09/23/19 15 Meningococcal Vaccine Completed 02/11/2019, 015 HIV Screening Completed 09/10/2023 Hepatitis C Screening Completed 09/10/2023 RSV under 20 months Aged Out No longe r eligible based on patient's age to complete this topic Rotavirus Vaccines Aged Out No longer eligible based on patient's age to complete this topic Procedures Procedure Name Priority Date/Time Associated Diagnosis Comments XR CHEST 2 VIEWS Routine 03/08/2025 12:2 9 PM EDT COVID-19 ID NOW ([facility]otolia) Routine 03/08/2025 10:41 AM EDT HIGH SENSITIVITY TROPONIN I Routine 03/08/2025 10:41 AM EDT COMPREHENSIVE METABOLIC PANEL Routine 03/08/2025 10:41 AM EDT CBC WITH AUTO DIFFERENTIAL Routine 03/08/2025 10:41 AM EDT INFLUENZA A B2 ID NOW ([facility]) Routine 03/08/2025 10:41 AM EDT ECG 12-LEAD Routine 12/23/2024 2:51 PM EDT RBBB (right bundle branch block with left anterior fascicular block) XR CHEST 2 VIEWS Routine 12/07/2024 2:54 PM EDT SARS COV2/INFLUENZA A/B AND RSV RNA QL NAAT Routine 12/07/2024 2:22 PM EDT STREP A NUCLEIC ACID Routine 12/07/2024 2:22 PM EDT HEPATITIS C AB W/REFL TO [...] Recently Relevant to Health Maintenance Results * XR Chest 2 Views (03/08/2025 12:29 PM EDT) Only the most recent of2 resultswithin the time period is included. 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: Procedure Note Donotuseinterpreter, Image - 03/08/2025 [place] [phone] [place] [address] XRay Report Signed Patient: Terence Soto JMR#: [id number] : 2000Acct:[id number] Age/Sex: 24 / MADM Date: 03/08/25 Loc: HO.ED Attending Dr: Ordering Physician: Generic ED Physician Date of Service: 03/08/25 Procedure(s): XR chest 2V Accession Number(s): [id number] cc: Generic ED Physician; Marley Tomlinson MD [...] 03/08/25 1230 DD/ 1229 TD/TT: 03/08/25 1229 Marine Steam Fitter: [facility] External Provider IMG XR PROCEDURES Final Result * Influenza A B2 ID NOW (Ness) (03/08/2025 10:41 AM EDT) IDNOW SERIAL# [id number] [facility] Influenza A Negative Negative [facility] Influenza B2 Negative Negative [facility] Influenza A B2 Note See Note [facility] Comment:The Ness ID NOW In fluenza A B2 test [...] LAB MICROBIOLOGY - GENERAL ORDERABLES Final Result [facility] [address] [place] [phone] * COVID-19 ID NOW (Fotolia) (03/08/2025 10:41 AM EDT) IDNOW SERIAL# [id number] [facility] COVID-19 TEST Negative Negative [facility] COVID-19 NOTE See Note [facility] Comment: Results are for the identification of SARS-CoV2 RNA. TheSARS-CoV2 RNA is generally detectable in respiratory samplesduring the acute phase of infection. Positive results areindicative of the presence of SARS-CoV-2 RNA; clinicalcorrelation with patient history and other diagnosticinformation is necessary to determine patient infectionstatus. Positive results do not rule out bacterial infectionor co- infection with other viruses.Testing facilities within the [facility] and itsterritories are required to report all positive results [...] use by authorized laboratories.Testing performed on the [facility] ID NOW utilizing NAAT. 03/08/2025 10:4 1 AM EDT 03/08/2025 10:45 AM EDT Generic External Data Provider LAB MOLECULAR MAURA GNOSTICS ORDERABLES Final Result Performing Organization Address [facility] de Phone Number [facility] [address] [place] [phone] * High Sensitivity Troponin I (03/08/2025 10:41 AM EDT) [facility] TROPONIN I HIGH SENSITIVITY <2.7 <3.5 - 35.0 ng/L [facility] Comment:The Ness high sens itivity Troponin-I results should beused in conjunction with other diagnostic information suchas ECG, clinical observations and information, and patientsymptoms to aid in the diagnosis of VT. 03/08/2025 10:4 1 AM EDT 03/08/2025 10:45 AM EDT Generic External Data Provider LAB BLOOD ORDERAB LES Final Result Performing Organization Address [facility] de Phone Number [facility] [address] [place] [phone] * CBC auto differential (03/08/2025 10:41 AM EDT) [facility] White Blood Count 6.2 4.8 - 10.8 X10*3/uL [facility] Red Blood Count 4.94 4.60 - 5.80 X10*6/uL [facility] Hemoglobin 14.6 14.0 - 18.0 g/dl [facility] Hematocrit 43.6 42.0 - 52.0 % [facility] Mean Corpuscular Volume 88.3 80.0 - 98.0 fL [facility] Mean Corpuscular Hemoglobin 29.6 27.0 - 33.0 pg [facility] Mean Corpuscular HGB Conc 33.5 31.0 - 36.0 g/dl [facility] Red Cell Distribution Width 13.0 11.0 - 16.0 % [facility] Platelet Count 346 160 - 400 X10*3/uL [facility] Mean Platelet Volume 9.6 9.4 - 12.4 fL [facility] Neutrophils Percent Auto 59.8 45 - 73 % [facility] Imm Gran Pct Auto 0.3 0.0 - 0.4 % [facility] Lymphocytes Percent Auto 24.7 20 - 40 % [facility] Monocytes Percent Auto 11.0 2 - 11 % [facility] Eosinophils Percent Auto 3.2 0 - 4 % [facility] Basophils Percent Auto 1.0 0 - 2 % [facility] NRBC Pct Auto 0.0 0.0 - 0.2 /100WBC [facility] Neutrophils Absolute Auto 3.7 2.0 - 8.3 x10*3/uL [facility] Imm Gran Abs Auto 0.02 0.00 - 0.03 X10*3/uL [facility] Lymphocytes Absolute Auto 1.5 1.2 - 4.9 X10*3/uL [facility] Monocytes Absolute Auto 0.7 0.1 - 1.2 X10*3/uL [facility] Eosinophils Absolute Auto 0.2 0.0 - 0.4 X10*3/uL [facility] Basophils Absolute Auto 0.1 0.0 - 0.2 X10*3/uL [facility] NRBC Abs Auto 0.000 0.0 - 0.012 X10*3/uL [facility] 03/08/2025 10:4 1 AM EDT 03/08/2025 10:45 AM EDT us Generic External Data Provider LAB BLOOD ORDERAB LES Final Result [facility] [address] [place] [phone] * Comprehensive Metabolic Panel (03/08/2025 10:41 AM EDT) Sodium 138 135 - 145 mmol/L [facility] Potassium 4.2 3.3 - 5.1 mmol/L [facility] Chloride 106 96 - 108 mmol/L [facility] Carbon Dioxide 23 22 - 29 mmol/L [facility] Anion Gap 13 12 - 20 [facility] Urea Nitrogen (BUN) 14 9 - 16 mg/dL [facility] Creatinine, Serum 0.84 0.5 - 1.4 mg/dL [facility] Creatinine Clr Calc Pharmacy 211.7 [facility] Comment:eGFR (calculated fro m the MDRD study equation) and eCrCl(calculated from the Cockcroft-Gault equation) are based ondifferent parameters and may not yield comparable results.If eCrCl result is absurd, please check patient'sheight/weight. Estimated Glomerular Filt Rate >60 [facility] Comment:Chronic Kidney Disea se: Estimated GFR < 60 mL/min/[id number] Kidney Disease: Estimated GFR < 15 mL/min/1.73m2 Glucose 103 60 - 115 mg/dL [facility] Calcium 9.5 8.4 - 10.2 mg/dL [facility] Bilirubin, Total 0.6 0.0 - 1.0 mg/dL [facility] Aspartate Amino Transferase 24 5 - 37 U/L [facility] Alanine Aminotransferase 32 0 - 40 U/L [facility] Total Protein 7.7 6.5 - 8.0 g/dL [facility] Albumin Level 4.5 3.5 - 5.0 g/dL [facility] Alkaline Phosphatase 60 39 - 117 U/L [facility] 03/08/2025 10:4 1 AM EDT 03/08/2025 10:45 AM EDT us Generic External Data Provider LAB BLOOD ORDERAB LES Final Result [facility] [address] [place] [phone] * ECG 12 lead (12/23/2024 2:51 PM EDT) Narrative Diya Blas MD - 12/23/2024 2:51 PM EDT NSR HR 78 incomplete RBBB us Diya Rodgers MD ECG ORDERABLES Final Result * Strep A Nucleic Acid (12/07/2024 2:22 PM EDT) IDNOW SERIAL# [id number] [facility] Strep A Nucleic Acid Negative Negative [facility] Comment:All test results mus t be correlated with clinical findings.This test has not been evaluated for monitoring treatment ofinfection.Additional follow-up testing using the culture method isrequired if the result is negative and clinical symptomspersist, or in the event of an acute rheumatic feveroutbreak. 12/07/2024 2:22 PM EDT 12/07/2024 2:28 PM EDT Generic External Data Provider LAB MICROBIOLOGY - GENERAL ORDERABLES Final Result [facility] [address] [place] [phone] * SARS-CoV-2 RNA, Influenza A/B, and RSV RNA, Ql NAAT (12/07/2024 2:22 PM EDT) Influenza A PCR NEGATIVE Negative [facility] Influenza B PCR NEGATIVE Negative [facility] Resp Syncy Virus RNA Qual PCR NEGATIVE Negative [facility] SARS COV2 PCR NEGATIVE Negative [facility] Comment:All test results mus t be [...] use by authorized laboratories.Testing performed on the [facility] GeneXpert utilizingreal-time RT-PCR.All SARS CoV2 and positive influenza A/B results arereported to [facility]. 12/07/2024 2:22 PM EDT 12/07/2024 2:28 PM EDT us Generic External Data Provider LAB MICROBIOLOGY - GENERAL ORDERABLES Final Result Performing Organization Address [facility]/ZIP Co de Phone Number [facility] [address] [place] [phone] * Hepatitis C Antibody with Reflex to HCV, RNA, Quantitative, Real-Time PCR (09/10/2023 11:05 AM EDT) Hepatitis C Antibody Nonreactive Nonreactive [facility] Comment:Antibodies to HCV no t detected; does not exclude early acuteHCV infection. Blood Venous blood specimen / Unknown 09/10/2023 11:05 AM EDT 09/10/2023 11:05 AM EDT us Marley Tomlinson MD LAB BLOOD ORDERABLES Final Re sult Performing Organization Address City/[facility]/ZIP Co de Phone Number [facility] [address] [place] [phone] * HIV-1/2 Antigen and Antibodies, Fourth Generation, with Reflexes (09/10/2023 11:05 AM EDT) HIV AB/AG Nonreactive Nonreactive [facility] Comment:HIV-1 p24 Ag and/or HIV-1/HIV-2 Ab not detected.A test result that is nonreactive does not exclude thepossibility of exposure to or infection with HIV-1 and/orHIV-2. Nonreactive results in this assay for individualswith prior exposure to HIV-1 and/or HIV-2 may be due toantigen and antibody levels that are below the limit ofdetection of this assay.The [employer] HIV Ag/Ab Combo assay result andsupplemental assay results should be interpreted inconjunction with the patient's clinical presentation,history and other laboratory results. If the results areinconsistent with clinical evidence, additional testing issuggested to confirm the result. Blood Venous blood specimen / Unknown 09/10/2023 11:05 AM EDT 09/10/2023 11:05 AM EDT us Marley Tomlinson MD LAB BLOOD ORDERABLES Final Re sult Performing Organization Address [facility] Co de Phone Number [facility] [address] [place] [phone] * (ABNORMAL) Lipid Panel, Standard (09/10/2023 11:05 AM EDT) Triglycerides 101 <150 mg/dL [facility] Comment:Desirable Triglyceri de: less than 150 mg/dLBorderline High Triglyceride 150-199 mg/dLHigh Triglyceride: 200-499 mg/dLVery High Triglyceride: greater than or equal to 5OO mg/dL Cholesterol 181 <200 mg/dL [facility] Comment:Desirable Cholestero l: less than 200 mg/dLBorderline High Cholesterol: 200-239 mg/dLHigh Cholesterol: greater than 239 mg/dL LDL Cholesterol Calculated 119(H) <100 mg/dL [facility] Comment:Desirable LDL: less than 100 mg/dLNear Optimal/Above Optimal LDL: 110- 129 mg/dLBorderline High LDL: 130-159 mg/dLHigh LDL: 160-189 mg/dLVery High LDL: greater than or equal to 190 mg/dL HDL Cholesterol 42 >40 mg/dL [facility] Comment:Desirable HDL: great er than 40 mg/dL Note: This HDL assay may give artificially low results in patients with liver disease. 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
== END 2025-03-08 12:47 | disposition home or self-care (01) ==
LOC: HO.ED 12:44
PROVIDERS: Emergency Provider Emergency Medicine Emergency Medical Services; PCP Family Medicine
DX: J40 Bronchitis, not specified as acute or chronic (principal); H66.93 Otitis media, unspecified, bilateral; R07.89 Other chest pain; R05.9 Cough, unspecified; R09.81 Nasal congestion; R06.02 Shortness of breath; Z79.899 Other long term (current) drug therapy; Z11.52 Encounter for screening for COVID-19
CPT/HCPCS: 71046; 80053; 84484; 85025; 87502; 87635; 93005; 99283

== ENCOUNTER → 2025-03-08 10:28 | Outpatient (BNV) | payer MEDICAID, SELFPAY | PROVIDERS: Emergency Provider Emergency Medicine Emergency Medical Services; PCP Family Medicine; Visit Provider Radiology Diagnostic Radiology | DX: R07.9 Chest pain, unspecified (principal) | CPT/HCPCS: 71046 ==

== ENCOUNTER → 2025-03-08 10:28 | Outpatient (BNV) | payer MEDICAID, SELFPAY | PROVIDERS: Emergency Provider Emergency Medicine Emergency Medical Services; PCP Family Medicine; Visit Provider Internal Medicine | DX: R07.9 Chest pain, unspecified (principal) | CPT/HCPCS: 93010 ==

== ENCOUNTER 2025-03-16 13:58 | Emergency (ER) | payer MEDICAID, SELFPAY ==
--- NOTE | ~2025-03-16 | XR_ITS ---
EXAMINATION: XR CHEST CLINICAL INFORMATION: SOB COMPARISON: X-ray 03/08/2025 TECHNIQUE: 2 views of the chest were obtained. FINDINGS: Heart size normal. Mild central vascular prominence, stable. No overt pulmonary edema. No focal consolidation or effusion. No pneumothorax. No acute findings XR/XR chest 2V IMPRESSION: Mild central vascular prominence, stable. Electronically signed by: Santos Morton MD 03/16/2025 02:45 PM [facility]
[2025-03-16 14:30] VITALS: BP 141/76; PULSE 68; RESP 20; TEMP 36.7; O2SAT 98; BMI 45.4
--- NOTE | 2025-03-16 14:30 | ED.GENADULT ---
HPI - General Adult General Chief complaint: Upper Respiratory Symptoms Stated complaint: dble ear inf/ bronchitis, asthma concerns Time Seen by Provider: 03/16/25 15:42 Source: patient, RN notes reviewed and old records reviewed Mode of arrival: ambulatory Limitations: no limitations History of Present Illness ED Provider: Cecil HPI narrative: Patient is a 24-year-old male presenting to the emergency department with complaint of bilateral ear pain as well as cough. Was recently treated with a course of azithromycin for bilateral AOM. Denies sore throat or recent fevers. Reports that he had a few days with improvement of his ear pain, then the pain returned, he is unsure if the symptoms have fully resolved. MD complaint: ear pain, cough Onset (ago): day(s) Related Data Home Medications ?Medication ?Instructions ?Recorded ?Confirmed fluticasone propionate 50 1 - 2 spray intranasal DAILY PRN 01/23/22 05/26/22 mcg/actuation nasal spray,suspension meykpoq-gzixcktsylcwm-reftenqu 250 2 tab PO Q8H PRN headache 05/26/22 05/26/22 mg-250 mg-65 mg tablet (Migraine Relief) methylcellulose (laxative) 500 mg 500 mg PO BID PRN 05/26/22 05/26/22 tablet (Citrucel) quetiapine 25 mg tablet 12.5 mg PO BID 05/26/22 05/26/22 trazodone 100 mg tablet 100 mg PO BEDTIME 05/26/22 05/26/22 Previous Rx's ?Medication ?Instructions ?Recorded gabapentin 100 mg capsule 100 - 300 mg (1 - 3 x 100 mg) PO 05/26/22 BEDTIME 30 days #90 caps ibuprofen 600 mg tablet 600 mg PO BID PRN pain 30 days #60 05/26/22 tabs magnesium oxide 400 mg (241.3 mg 400 mg PO BEDTIME 30 days #30 tabs 05/26/22 magnesium) tablet naratriptan 2.5 mg tablet 1.25 - 2.5 mg (0.5 - 1 x 2.5 mg) 05/26/22 PO .COMPLEX PRN migraine headache 30 days #12 tabs riboflavin (vitamin B2) 400 mg 400 mg PO DAILY 30 days #30 tabs 05/26/22 tablet fluticasone furoate 27.5 1 spray intranasal DAILY #5.9 mL 01/11/23 mcg/actuation nasal spray,suspension yyngwmgj-qmjezo-RN-thonzonm 3.3 1 appl otic (ears) QID #10 mL 01/11/23 mg-3 mg-10 mg-0.5 mg/mL ear drops,susp (Cortisporin-TC) azithromycin 250 mg tablet See Rx Instructions PO .COMPLEX #6 07/22/24 tabs prednisone 20 mg tablet 40 mg (2 x 20 mg) PO DAILY #10 tabs 07/22/24 dicyclomine 10 mg capsule 10 mg PO TID PRN abdominal pain 09/22/24 #10 caps albuterol sulfate 90 mcg/actuation 2 puff inhalation QID PRN 12/07/24 aerosol inhaler (Ventolin HFA) shortness of breath or wheezing #6.7 grams azithromycin 250 mg tablet See Rx Instructions PO .COMPLEX #6 12/07/24 tabs azithromycin 250 mg tablet See Rx Instructions PO .COMPLEX #6 03/08/25 tabs benzonatate 100 mg capsule 100 mg PO TID PRN cough #14 caps 03/16/25 prednisone 20 mg tablet 20 mg PO DAILY #7 tabs 03/16/25 Allergies Allergy/AdvReac Type Severity Reaction Status Date / Time Seasonal Allergies Allergy Intermediate Runny Nose Verified 03/16/25 14:32 Review of Systems Review of Systems: as per hpi Yes all other systems are reviewed and are negative Constitutional: Constitutional: Reports as per HPI PMFSH Past Medical History Medical History Obesity Insomnia ADHD Surgical History Hx of wisdom tooth extraction Hx of toe surgery History of placement of ear tubes Family History Family History Paternal Grandfather Diabetes Hypertension Mother Headache Seizures Migraine-cluster headache syndrome Myocardial infarction Hypertension Social History Social History Household Members: Family Household Members Other:: Mother, Sisters, brothers, grandparent, and 3 dogs Alcohol intake: current Alcohol intake frequency: does not drink Patient Tobacco Use Status: Never used Tobacco Current occupational status: unemployed Physical Exam ED Vital Signs: Vital Signs - 24 hr 03/16/25 14:30 Temperature 98.0 F Pulse Rate 68 Respiratory Rate 20 Blood Pressure 141/76 H Pulse Oximetry 98 Oxygen Delivery Method Room Air BMI result Body Mass Index 45.4 Vital signs have been reviewed and appear to be correct. Blood pressure normal. Heart rate normal. Respiratory rate normal. Temperature normal. Oxygen saturation normal. Const General: cooperative, healthy appearing and no acute distress Orientation/consciousness: oriented to person, oriented to place, oriented to time and patient oriented x3 Limitations: no limitations HENMT Head: Yes normocephalic and Yes atraumatic Ears: hearing grossly normal bilaterally, external ears normal, EAC's normal, mastoids normal bilaterally, no periauricular adenopathy and TM abnormal wth effusion serous bilateral; not bulging and not erythematous General nose exam: Normal external nose present, Normal nasal mucous membranes and turbinates present and Normal septum present Face and sinus: Yes face symmetric Mouth: oropharynx normal and moist mucous membranes Throat: Yes uvula midline Eyes Pupils: Equal, round and reactive pupils present Neck Neck: Yes normal visual inspection and Yes supple Resp Effort & Inspection: normal respiratory effort and able to speak in complete sentences Auscultation: clear to auscultation bilaterally Cardio Rate: regular rate Rhythm: regular rhythm Heart sounds: S1 normal heart sound present and S2 normal heart sound present GI Palpation (GI): Soft to palpation and nontender Auscultation: normoactive bowel sounds General: Yes no CVA tenderness Back/Spine/Pelvis Back: no CVA tenderness Skin General skin exam: elasticity normal and turgor normal Neuro General: oriented to person, oriented to place, oriented to time, patient oriented x3, moves all extremities, no focal motor deficits and CN's II-XI intact bilaterally Cranial nerves: Yes Equal, round and reactive pupils present Cognition (Neuro): normal cognition Extrem General: Yes full ROM, Yes no pedal edema and Yes no calf tenderness Psych Mental Status: mental status grossly normal Affect: normal affect Thought process: Normal thought process present Course Course Course Narrative: Rapid medical examination performed in triage by Alicia He PA-C: Patient is a 24 year old assigned male at presenting to the emergency department with a cough and bilateral ear pain. Detailed physical exam and review of systems are deferred to the saddle and harness maker. Imaging + swabs ordered. Patient placed back in the waiting room pending room availability and results. Medical Decision Making Medical Decision Making [facility] Narrative: Patient is a 24-year-old male presenting to the emergency department with complaint of bilateral ear pain as well as cough. On exam patient is awake, A+Ox3, VS WNL, afebrile, normal neurological exam without focal deficits, physical exam findings as above. Given reported symptoms and physical exam findings, initial differential includes but is not limited to otitis media, otitis externa, cerumen impaction, viral illness, COVID, flu, bronchitis, pneumonia. Viral serology negative. X-ray chest notable for no evidence of pneumonia. My interpretation is in agreement with the radiologist's interpretation. No evidence of AOM or otitis externa on physical exam. Discussed with patient that symptoms are likely due to viral illness. Will discharge home on course of prednisone and benzonatate. Advised nasal saline spray. Follow up with PCP as needed. Return precautions discussed. Patient verbalized understanding of and agreement with plan. Differential Diagnosis Differential Diagnoses: The differential diagnosis associated with the presentation includes As per [facility] Admission/Observation Consideration of admission/observation: Escalation of care including admission/observation considered Patient would have been admitted to the hospital and transferred to appropriate facility had their clinical presentation warranted hospital admission. Lab Data [facility] Lab Attestation statement: I reviewed the patient's lab results. as per [facility] Labs: Lab Results 03/16/25 Range/Units 14:40 COVID-19 (AJ) Negative (Negative) COVID-19 Clin Com See Note Influenza Type A (ENDY) Negative (Negative) Influenza Type B (ENDY) Negative (Negative) Influenza A & B Note See Note Independent Interpretation I performed an independent interpretation of an: Plain X-Ray Interpretation: Chest x-ray is without evidence of pneumonia. Radiology Impression Discussion of test interpretation with radiology: I have reviewed the radiologist's reading. Radiologist Impression: XR/XR chest 2V IMPRESSION: Mild central vascular prominence, stable. External Record Review External record reviewed: Inpatient record, Office record and Outpatient record Prescription Management I considered prescription management with: Other Discharge Plan Discharge Clinical Impression: Acute viral syndrome Patient Disposition: Home, Self-Care Instructions: Viral Syndrome (ED) Additional Instructions: You were evaluated in the emergency department today for ear pain and cough. Your Covid and flu tests were all negative. Your symptoms are likely related to a viral illness which will resolve on its own with time and rest. It can take up to 3 weeks for your cough to resolve. You have been sent a prescription for benzonatate for cough, KEEP THIS OUT OF THE REACH OF CHILDREN. You have also been prescribed a short course of prednisone which is a steroid to decrease inflammation. You should ensure adequate fluid intake, and can use Tylenol 650 mg or ibuprofen 600 mg every 6 hours as needed for fever or discomfort. We also recommend using over the counter nasal saline spray to thin your mucous. Please follow-up with your primary care provider this week. Return to the emergency department if you develop chest pain, worsening shortness of breath, difficulty swallowing, fever 100.4? F or greater or any other concerning symptoms. Prescriptions: New benzonatate 100 mg capsule 100 mg PO TID PRN (Reason: cough) Qty: 14 0RF prednisone 20 mg tablet 20 mg PO DAILY Qty: 7 0RF No Action fluticasone furoate 27.5 mcg/actuation spray,suspension 1 spray intranasal DAILY Qty: 5.9 0RF Rx Instructions: into each nostril Cortisporin-TC 3.3-3-10-0.5 mg/mL drops,suspension 1 appl otic (ears) QID Qty: 10 0RF Rx Instructions: 7 days dicyclomine 10 mg capsule 10 mg PO TID PRN (Reason: abdominal pain) Qty: 10 0RF azithromycin 250 mg tablet See Rx Instructions .ROUTE .COMPLEX Qty: 6 0RF Rx Instructions: For 250 mg dose pack: take 500 mg today (day 1), then 250 mg for 4 days (days 2-5) prednisone 20 mg tablet 40 mg PO DAILY Qty: 10 0RF azithromycin 250 mg tablet See Rx Instructions .ROUTE .COMPLEX Qty: 6 0RF Rx Instructions: For 250 mg dose pack: take 500 mg today (day 1), then 250 mg for 4 days (days 2-5) albuterol sulfate [Ventolin HFA] 90 mcg/actuation HFA aerosol inhaler 2 puff inhalation QID PRN (Reason: shortness of breath or wheezing) Qty: 6.7 0RF azithromycin 250 mg tablet See Rx Instructions .ROUTE .COMPLEX Qty: 6 0RF Rx Instructions: For 250 mg dose pack: take 500 mg today (day 1), then 250 mg for 4 days (days 2-5) fluticasone propionate 50 mcg/actuation spray,suspension 1 - 2 spray intranasal DAILY PRN trazodone 100 mg tablet 100 mg PO BEDTIME Citrucel 500 mg tablet 500 mg PO BID PRN quetiapine 25 mg tablet 12.5 mg PO BID Migraine Relief 250-250-65 mg tablet 2 tab PO Q8H PRN (Reason: headache) riboflavin (vitamin B2) 400 mg tablet 400 mg PO DAILY 30 Days Qty: 30 6RF magnesium oxide 400 mg (241.3 mg magnesium) tablet 400 mg PO BEDTIME 30 Days Qty: 30 6RF Rx Instructions: may hold for loose stools naratriptan 2.5 mg tablet 1.25 - 2.5 mg PO .COMPLEX PRN (Reason: migraine headache) 30 Days Qty: 12 3RF Rx Instructions: 1.25 - 2.5 mg orally, msy repeat in 2 hrs, may take w/ Ibuprofen, prn ibuprofen 600 mg tablet 600 mg PO BID PRN (Reason: pain) 30 Days Qty: 60 3RF gabapentin 100 mg capsule 100 - 300 mg PO BEDTIME 30 Days Qty: 90 3RF Print Language: Uruguayan
[2025-03-16 15:09] LABS: COVID-19 Test Negative (Negative); IDNOW Serial# 55D5AD1C; IDNOW Serial# 58CA691E; Influenza B2 Negative (Negative)
[2025-03-16 17:10] VITALS: BP 141/76; PULSE 68; RESP 20; TEMP 36.7; O2SAT 98
--- OUTSIDE RECORDS SUMMARY | 2025-03-16 17:20 | XMS_ITS | Encounter Summary ---
Author Organization [employer] Address [address] [place] [address] Care Team Providers Care Branch Lending Manager Name Role Phone Marley Tomlinson MD Primary Care Provider [phone] Reason for Visit * Reason Comments Med Refill Encounter Details Date Type Department Care Team ([facility] st Contact Info) Description 01/26/2023 Refill [facility] CH[facility] MED & PEDS [address] [place] [address] Marley Tomlinson MD [address] [place] [address] Developmental academic disorder Social History Tobacco Use [...] documented as of this encounter Care Teams Branch Lending Manager Relationship Specialty Start Date End Date Marley Tomlinson MD [address] [place] [address] PCP - General Family Medicine 10/24/21 Augustine magaña Canteen OperatorInspector Precision Assembly 05/28/24 documented as of this encounter
--- OUTSIDE RECORDS SUMMARY | 2025-03-16 17:20 | XMS_ITS | Encounter Summary ---
Author Organization [employer] Address [address] [place] [address] Care Team Providers Care Slip Dumper Name Role Phone Marley Tomlinson MD Primary Care Provider [phone] Encounter Details Date Type Department Care Team [...] on filedocumented in this encounter Care Teams Slip Dumper Relationship Specialty Start Date End Date Marley Tomlinson MD [address] [place] [id number] PCP - General Family Medicine 10/24/21 Augustine magaña College And Career CounselorClinical Office Technician 05/28/24 documented as of this encounter
--- OUTSIDE RECORDS SUMMARY | 2025-03-16 17:20 | XMS_ITS | Encounter Summary ---
Author Organization [employer] Address [address] [place] [address] Care Team Providers Care Bioinformatics Associate Name Role Phone Marley Tomlinson MD Primary Care Provider [phone] Reason for Visit * Reason Comments Med Refill Encounter Details Date Type Department Care Team ([facility] Contact Info) Description 02/23/2024 Refill [facility] CHC MED & PEDS [address] [place] [address] Marley Tomlinson MD [address] [place] [address] Social History Tobacco Use Types Packs/Day Years [...] documented as of this encounter Care Teams Bioinformatics Associate Relationship Specialty Start Date End Date Marley Tomlinson MD [address] [place] [address] PCP - General Family Medicine 10/24/21 Augustine magaña Manager Statistical ProgrammingVarnish Supervisor 05/28/24 documented as of this encounter
--- OUTSIDE RECORDS SUMMARY | 2025-03-16 17:20 | XMS_ITS | Encounter Summary ---
Author Organization [employer] Address [address] [place] [address] Care Team Providers Care Ore Miner Blasting Name Role Phone Marley Tomlinson MD Primary Care Provider [phone] Reason for Visit * Reason Comments Med Refill Encounter Details Date Type Department Care Team ([facility] st Contact Info) Description 02/11/2025 Refill [facility] MEDICINE [address] [place] [address] Marley Tomlinson MD [address] [place] [address] Social History Tobacco Use Types Packs/Day Years [...] documented as of this encounter Care Teams Ore Miner Blasting Relationship Specialty Start Date End Date Marley Tomlinson MD [address] [place] [address] PCP - General Family Medicine 10/24/21 Augustine magaña Hedis AnalystHot End Operator 05/28/24 documented as of this encounter
--- OUTSIDE RECORDS SUMMARY | 2025-03-16 17:20 | XMS_ITS | Encounter Summary ---
Author Organization [employer] Address [address] [place] [address] Care Team Providers Care Foster Care Worker Name Role Phone Marley Tomlinson MD Primary Care Provider [phone] Encounter Details Date Type Department Care Team ([facility] Contact Info) Description 04/09/2024 Orders Only [facility] CHC MED & PEDS [address] [place] [address] Provider, MD Emile Social History Tobacco Use [...] documented as of this encounter Care Teams Foster Care Worker Relationship Specialty Start Date End Date Marley Tomlinson MD [address] [place] [address] PCP - General Family Medicine 10/24/21 Augustine magaña Forest RangerAnimal Treatment Investigator 05/28/24 documented as of this encounter
--- OUTSIDE RECORDS SUMMARY | 2025-03-16 17:20 | XMS_ITS | Encounter Summary ---
Author Organization [employer] Address [address] [place] [address] Care Team Providers Care Clinical Application Consultant Name Role Phone Marley Tomlinson MD Primary Care Provider [phone] Encounter Details Date Type Department Care Team ([facility] Contact Info) Description 12/17/2023 Telephone [facility] [address] [place] [address] Marley Tomlinson MD [address] [place] [address] Social History Tobacco Use Types Packs/Day Years [...] documented as of this encounter Care Teams Clinical Application Consultant Relationship Specialty Start Date End Date Marley Tomlinson MD [address] [place] [address] PCP - General Family Medicine 10/24/21 Augustine magaña Leather LacerSpring Former 05/28/24 documented as of this encounter
--- OUTSIDE RECORDS SUMMARY | 2025-03-16 17:20 | XMS_ITS | Encounter Summary ---
Author Organization [employer] Address [address] [place] [address] Care Team Providers Care Clinical Leader Name Role Phone Marley Tomlinson MD Primary Care Provider [phone] Encounter Details Date Type Department Care Team ([facility] Contact Info) Description 03/16/2025 Orders Only GENERIC EXTERNAL DATA DEPARTMENT Provider, [...] Procedure Name Priority Date/Time Associated Diagnosis Comments INFLUENZA A B2 ID NOW (TAPIA) Routine 03/16/2025 2:40 PM EST COVID-19 ID NOW (TAPIA) Routine 03/16/2025 2:40 PM EST documented in this encounter Results * Influenza A B2 ID NOW (Tapia) (03/16/2025 2:40 PM EST) IDNOW SERIAL# [id number] [facility] Influenza A Negative Negative [facility] Influenza B2 Negative Negative [facility] Influenza A B2 Note See Note [facility] Comment:The Tapia ID NOW In fluenza [...] specimen and co- infection withRespiratory Syncytial Virus. 03/16/2025 2:40 PM EST 03/16/2025 2:49 PM EST us Generic External Data Provider LAB MICROBIOLOGY - GENERAL ORDERABLES Final Result [facility] [address] [place] [address] [phone] * COVID-19 ID NOW (PlumTV) (03/16/2025 2:40 PM EST) IDNOW SERIAL# [id number] [facility] COVID-19 TEST Negative Negative [facility] COVID-19 NOTE See Note [facility] Comment: Results are for the identification of SARS-CoV2 RNA. TheSARS-CoV2 RNA is generally detectable in respiratory samplesduring the acute phase of infection. Positive results areindicative of the presence of SARS-CoV-2 RNA; clinicalcorrelation with patient history and other diagnosticinformation is necessary to determine patient infectionstatus. Positive results do not rule out bacterial infectionor co- infection with other viruses.Testing facilities within the [facility] and itsterritories are required to report all [...] on the Tapia ID NOW utilizing NAAT. 03/16/2025 2:40 PM EST 03/16/2025 2:49 PM EST us Generic External Data Provider LAB MOLECULAR MAURA GNOSTICS ORDERABLES Final Result [facility] [address] [place] [address] [phone] documented in this encounter Visit Diagnoses Not on filedocumented in this encounter Additional Health Concerns Assessment Noted Time PHQ-9 Depression Total Score: 13 024 2:07 PM EDT documented as of this encounter Care Teams Clinical Leader Relationship Specialty Start Date End Date Marley Tomlinson MD [address] [place] [address] PCP - General Family Medicine 10/24/21 Augustine magaña Food ConsultantClinical Applications Specialist 05/28/24 documented as of this encounter
--- OUTSIDE RECORDS SUMMARY | 2025-03-16 17:20 | XMS_ITS | Clinical Summary ---
Author Organization [employer] Address [address] [place] [address] Care Team Providers Care Head Of Ict Name Role Phone Marley Tomlinson MD Primary Care Provider [phone] Allergies Active Allergy Reactions Criticality Noted Date [...] Hep C testing Not sexually active. Needs SDMA screening. Memory deficit 05/17/2022 Assessment & Plan [...] Encounters Date Type Department Care Team Description 03/16/2025 Orders Only GENERIC EXTERNAL DATA DEPARTMENT Provider, Generic External Data 03/16/2025 Telephone [facility] [address] [place] [phone] Marley Tomlinson MD Nurse Triage 03/08/2025 Orders Only GENERIC EXTERNAL DATA DEPARTMENT Provider, Generic External Data 03/06/2025 Telephone [facility] [address] [place], [place] [phone] Marley Tomlinson MD Nurse Triage 02/11/[address] [address] Marley Tomlinson MD 12/25/[address] [address] Marley Tomlinson MD ER Follow-up 12/23/2024 2:00 PM EDT Office Visit [facility] [address] [place] [phone] Diya Blas MD 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) 12/23/2024 Travel 12/23/[address] [address] Marley Tomlinson MD Nurse Triage from Last 3 Months Immunizations Immunization Administration [...] Procedure Name Priority Date/Time Associated Diagnosis Comments COVID-19 ID NOW (DIY) Routine 03/16/2025 2:40 PM EST INFLUENZA A B2 ID NOW (TAPIA) Routine 03/16/2025 2:40 PM EST XR CHEST 2 VIEWS Routine 03/16/2025 2:35 PM EST XR CHEST 2 VIEWS Routine 03/08/2025 12:2 9 PM EDT COVID-19 ID NOW (DIY) Routine 03/08/2025 10:41 AM EDT HIGH SENSITIVITY TROPONIN I Routine 03/08/2025 10:41 AM EDT COMPREHENSIVE METABOLIC PANEL Routine 03/08/2025 10:41 AM EDT CBC WITH AUTO DIFFERENTIAL Routine 03/08/2025 10:41 AM EDT INFLUENZA A B2 ID NOW (TAPIA) Routine 03/08/2025 10:41 AM EDT ECG 12-LEAD Routine 12/23/2024 2:51 PM EDT RBBB (right bundle branch block with left anterior fascicular block) HEPATITIS C AB W/REFL TO HCV RNA, QN, PCR Routine 09/10/2023 11:05 AM EDT Physical exam HIV 1/2 ANTIGEN/ANTIBODY, FOURTH GENERATION W/RFL Routine 09/10/2023 11:05 AM EDT Physical exam LIPID PANEL, STANDARD Routine 09/10/2023 11:05 AM EDT Class 3 severe obesity due to excess calories with body mass index (BMI) of 40.0 to 44.9 in adult, unspecified whether serious comorbidity present ([facility]) PROPHYLAXIS - ADULT Routine 07/14/2022 3 :00 PM EST from Last 3 Months or Most Recently Relevant to Health Maintenance Results * Influenza A B2 ID NOW (Tapia) (03/16/2025 2:40 PM EST) Only the most recent of2 resultswithin the time period is included. IDNOW SERIAL# [id number] [facility] Influenza A Negative Negative [facility] Influenza B2 Negative Negative [facility] Influenza A B2 Note See Note [facility] Comment:The Tapia ID NOW In [...] LAB MICROBIOLOGY - GENERAL ORDERABLES Final Result [facility] [address] [place] [phone] * COVID-19 ID NOW (TAPIA) (03/16/2025 2:40 PM EST) Only the most recent of2 resultswithin the time period is included. IDNOW SERIAL# [id number] [facility] COVID-19 TEST Negative Negative [facility] COVID-19 NOTE See Note [facility] Comment: Results are for the identification of SARS-CoV2 RNA. TheSARS-CoV2 RNA is generally detectable in respiratory samplesduring the acute phase of infection. Positive results areindicative of the presence of SARS-CoV-2 RNA; clinicalcorrelation with patient history and other diagnosticinformation is necessary to determine patient infectionstatus. Positive results do not rule out bacterial infectionor co- infection with other viruses.Testing facilities within the [place] and itsterritories are required to report all [...] use by authorized laboratories.Testing performed on the We[employer] NOW utilizing NAAT. 03/16/2025 2:40 PM EST 03/16/2025 2:49 PM EST us Generic External Data Provider LAB MOLECULAR MAURA [employer] ORDERABLES Final Result [facility] [address] [place] [phone] * XR Chest 2 Views (03/16/2025 2:35 PM EST) Only the most recent of2 resultswithin the time period is included. Anatomical Region Laterality Modality Chest Radiographic Divina ging 03/16/2025 2:35 PM EST Narrative 03/16/2025 2:48 PM EST [address] [address] XRay Report Signed Patient: Terence Soto MR#: [id number] : 2000 Acct:[id number] Age/Sex: 24 / M ADM Date: 03/16/25 Loc: HO.ED Attending Dr: Ordering Physician: Alicia He Date of Service: 03/16/25 Procedure(s): XR chest 2V Accession Number(s): [id number] cc: Alicia He; Marley Tomlinson MD Reason for Exam: SOB EXAMINATION: XR CHEST CLINICAL INFORMATION: SOB COMPARISON: X-ray 03/08/2025 TECHNIQUE: 2 views of the chest were obtained. FINDINGS: Heart size normal. Mild central vascular prominence, stable. No overt pulmonary edema. No focal consolidation or effusion. No pneumothorax. No acute findings XR/XR chest 2V IMPRESSION: Mild central vascular prominence, stable. Electronically signed by: Santos Morton MD 03/16/2025 02:[address] [facility] Dictated By: Santos Morton MD Signed By: <Electronically signed by Santos Morton MD in OV> 03/16/25 1445 DD/ 1435 TD/TT: 03/16/25 1439 Runner Out: JOAN Procedure Note Donotuseinterpreter, Image - 03/16/2025 [place] [address] XRay Report Signed Patient: Terence Soto JMR#: [id number] : 2000Acct:[id number] Age/Sex: 24 / MADM Date: 03/16/25 Loc: .ED Attending Dr: Ordering Physician: Alicia He Date of Service: 03/16/25 Procedure(s): XR chest 2V Accession Number(s): [id number] cc: Alicia He; Marley Tomlinson MD Reason for Exam: SOB EXAMINATION: XR CHEST CLINICAL INFORMATION: SOB COMPARISON: X-ray 03/08/2025 TECHNIQUE: 2 views of the chest were obtained. FINDINGS: Heart size normal. Mild central vascular prominence, stable. No overt pulmonary edema. No focal consolidation or effusion. No pneumothorax. No acute findings XR/XR chest 2V IMPRESSION: Mild central vascular prominence, stable. Electronically signed by: Santos Morton MD 03/16/2025 02:45 PM EST Dictated By: Santos Morton MD Signed By: <Electronically signed by Santos Morton MD in OV> 03/16/25 1445 DD/ 1435 TD/TT: 03/16/25 1439 Runner Out: JOAN [facility] External Provider IMG XR PROCEDURES Final Result * High Sensitivity Troponin I (03/08/2025 10:41 AM EDT) [facility] TROPONIN I HIGH SENSITIVITY <2.7 <3.5 - 35.0 ng/L [facility] Comment:The Tapia high sens itivity Troponin-I results should beused in conjunction with other diagnostic information suchas ECG, clinical observations and information, and patientsymptoms to aid in the diagnosis of CA. 03/08/2025 10:4 1 AM EDT 03/08/2025 10:45 AM EDT Generic External Data Provider LAB BLOOD ORDERAB LES Final Result [facility] [address] [place] [phone] * CBC auto differential (03/08/2025 10:41 AM EDT) [facility] White Blood Count 6.2 4.8 - 10.8 X10*3/uL [facility] Red Blood Count 4.94 4.60 - 5.80 X10*6/uL [facility] Hemoglobin 14.6 14.0 - 18.0 g/dl [facility] Hematocrit 43.6 42.0 - 52.0 % [facility] Mean Corpuscular Volume 88.3 80.0 - 98.0 fL [facility] Mean Corpuscular Hemoglobin 29.6 27.0 - 33.0 pg [facility] Mean Corpuscular HGB Conc 33.5 31.0 - 36.0 g/dl [facility] Red Cell Distribution Width 13.0 11.0 - 16.0 % [facility] Platelet Count 346 160 - 400 X10*3/uL [facility] Mean Platelet Volume 9.6 9.4 - 12.4 fL [facility] Neutrophils Percent Auto 59.8 45 - 73 % [facility] Imm Gran Pct Auto 0.3 0.0 - 0.4 % [facility] Lymphocytes Percent Auto 24.7 20 - 40 % [facility] Monocytes Percent Auto 11.0 2 - 11 % [facility] Eosinophils Percent Auto 3.2 0 - 4 % [facility] Basophils Percent Auto 1.0 0 - 2 % [facility] NRBC Pct Auto 0.0 0.0 - 0.2 /100WBC [facility] Neutrophils Absolute Auto 3.7 2.0 - 8.3 x10*3/uL [facility] Imm Gran Abs Auto 0.02 0.00 - 0.03 X10*3/uL [facility] Lymphocytes Absolute Auto 1.5 1.2 - 4.9 X10*3/uL [facility] Monocytes Absolute Auto 0.7 0.1 - 1.2 X10*3/uL [facility] Eosinophils Absolute Auto 0.2 0.0 - 0.4 X10*3/uL [facility] Basophils Absolute Auto 0.1 0.0 - 0.2 X10*3/uL [facility] NRBC Abs Auto 0.000 0.0 - 0.012 X10*3/uL [facility] 03/08/2025 10:4 1 AM EDT 03/08/2025 10:45 AM EDT us Generic External Data Provider LAB BLOOD ORDERAB LES Final Result [facility] [address] [place] [phone] * Comprehensive Metabolic Panel (03/08/2025 10:41 AM EDT) Sodium 138 135 - 145 mmol/L [facility] Potassium 4.2 3.3 - 5.1 mmol/L [facility] Chloride 106 96 - 108 mmol/L [facility] Carbon Dioxide 23 22 - 29 mmol/L [facility] Anion Gap 13 12 - 20 [facility] Urea Nitrogen (BUN) 14 9 - 16 mg/dL [facility] Creatinine, Serum 0.84 0.5 - 1.4 mg/dL [facility] Creatinine Clr Calc Pharmacy 211.7 [facility] Comment:eGFR (calculated fro m the MDRD study equation) and eCrCl(calculated from the Cockcroft-Gault equation) are based ondifferent parameters and may not yield comparable results.If eCrCl result is absurd, please check patient'sheight/weight. Estimated Glomerular Filt Rate >60 [facility] Comment:Chronic Kidney Disea se: Estimated GFR < 60 mL/min/1.50e1Dvixlu Kidney Disease: Estimated GFR < 15 mL/min/1.73m2 Glucose 103 60 - 115 mg/dL [facility] Calcium 9.5 8.4 - 10.2 mg/dL [facility] Bilirubin, Total 0.6 0.0 - 1.0 mg/dL [facility] Aspartate Amino Transferase 24 5 - 37 U/L [facility] Alanine Aminotransferase 32 0 - 40 U/L [facility] Total Protein 7.7 6.5 - 8.0 g/dL [facility] Albumin Level 4.5 3.5 - 5.0 g/dL [facility] Alkaline Phosphatase 60 39 - 117 U/L [facility] 03/08/2025 10:4 1 AM EDT 03/08/2025 10:45 AM EDT us Generic External Data Provider LAB BLOOD ORDERAB LES Final Result [facility] [address] [place] [phone] * ECG 12 lead (12/23/2024 2:51 PM EDT) Narrative Diya Blas MD - 12/23/2024 2:51 PM EDT NSR HR 78 incomplete RBBB us Diya Rodgers MD ECG ORDERABLES Final Result * Hepatitis C Antibody with Reflex to HCV, RNA, Quantitative, Real-Time PCR (09/10/2023 11:05 AM EDT) Hepatitis C Antibody Nonreactive Nonreactive [facility] Comment:Antibodies to HCV no t detected; does not exclude early acuteHCV infection. Blood Venous blood specimen / Unknown 09/10/2023 11:05 AM EDT 09/10/2023 11:05 AM EDT us Marley Tomlinson MD LAB BLOOD ORDERABLES Final Re sult [facility] [address] [place] [phone] * HIV-1/2 Antigen and Antibodies, Fourth Generation, with Reflexes (09/10/2023 11:05 AM EDT) HIV AB/AG Nonreactive Nonreactive [facility] Comment:HIV-1 p24 Ag and/or HIV-1/HIV-2 Ab not detected.A test result that is nonreactive does not exclude thepossibility of exposure to or infection with HIV-1 and/orHIV-2. Nonreactive results in this assay for individualswith prior exposure to HIV-1 and/or HIV-2 may be due toantigen and antibody levels that are below the limit ofdetection of this assay.The [employer] HIV Ag/Ab Combo assay result andsupplemental assay results should be interpreted inconjunction with the patient's clinical presentation,history and other laboratory results. If the results areinconsistent with clinical evidence, additional testing issuggested to confirm the result. Blood Venous blood specimen / Unknown 09/10/2023 11:05 AM EDT 09/10/2023 11:05 AM EDT us Marley Tomlinson MD LAB BLOOD ORDERABLES Final Re sult Performing Organization Address [facility] Co de Phone Number [facility] [address] [place] [phone] * (ABNORMAL) Lipid Panel, Standard (09/10/2023 11:05 AM EDT) Triglycerides 101 <150 mg/dL [facility] Comment:Desirable Triglyceri de: less than 150 mg/dLBorderline High Triglyceride 150-199 mg/dLHigh Triglyceride: 200-499 mg/dLVery High Triglyceride: greater than or equal to 5OO mg/dL Cholesterol 181 <200 mg/dL [facility] Comment:Desirable Cholestero l: less than 200 mg/dLBorderline High Cholesterol: 200-239 mg/dLHigh Cholesterol: greater than 239 mg/dL LDL Cholesterol Calculated 119(H) <100 mg/dL [facility] Comment:Desirable LDL: less than 100 mg/dLNear Optimal/Above Optimal LDL: 110- 129 mg/dLBorderline High LDL: 130-159 mg/dLHigh LDL: 160-189 mg/dLVery High LDL: greater than or equal to 190 mg/dL HDL Cholesterol 42 >40 mg/dL [facility] Comment:Desirable HDL: great er than 40 mg/dL Note: This HDL assay may give artificially low results in patients with liver disease. Blood Venous blood specimen / Unknown 09/10/2023 11:05 AM EDT 09/10/2023 11:05 AM EDT us Marley Tomlinson MD LAB BLOOD ORDERABLES Final Re sult Performing Organization Address [facility]/ZIP Co de Phone Number [facility] [address] [place] [phone] from Last 3 Months or Most Recently Relevant to Health Maintenance [place] [facility] ADULT Care Teams Head Of Ict Relationship Specialty Start Date End Date Marley Tomlinson MD [address] [place] [phone] PCP - General Family Medicine 10/24/21 Augustine magaña Stopping BuilderBaton Teacher 05/28/24
--- OUTSIDE RECORDS SUMMARY | 2025-03-16 17:20 | XMS_ITS | Encounter Summary ---
Author Organization [employer] Address [address] [place] [address] Care Team Providers Care Gum Puller Name Role Phone Marley Tomlinson MD Primary Care Provider [phone] Reason for Visit * Reason Onset Date Comments Nurse Triage 03/16/2025 Encounter Details Date Type Department Care Team ([facility] st Contact Info) Description 03/16/2025 Telephone [facility] [address] [place] [address] Marley Tomlinson MD [address] [place] [address] Nurse Triage Social History Tobacco Use Types [...] encounter Miscellaneous Notes * Telephone Encounter - Jeni Hodges RN - 03/16/2025 1:37 PM EST TC placed to pt who reports recent ED visit Dx with ear infection and Bronchitis pt states that he picked up antibiotics took medication as prescribed however has worsening drainage from ear and alsocoughing up thick green mucus. Patient reports that he has difficulty breathing and having no relief from inhaler. Patient was speaking in clear sentence when first answered the phone as call progressed could hear audible wheezing over the phone then pt states his breathing is worst however he is at work and would need a pass to leave work Advised pt to contact management during time of phone call as pt needs to go to ED now if he having difficulty breathing, pt states that he leaving now and go ing to [facility] will send task to PCP team to follow up tomorrow with pt for status check, pt denies [place] Protocol Used: Breathing Difficulty (Adult) Protocol-Based Disposition: Go to ED Now Positive Triage Question: * Wheezing can be heard across the room * All higher-acuity triage questions were negative * Telephone Encounter - Yuki Call - 03/16/2025 11:48 AM EST Patient calling to report ED visit on : Date: 03/08 Hospital: [facility] Seen for: Chest pain Bronchitis Symptomatic Yes *if yes message should go to Triage Patient advised will forward to team nurse for follow up documented in this encounter Plan of Treatment Not on file documented as of this encounter Visit Diagnoses Not on filedocumented in this encounter Additional Health Concerns Assessment Noted Time PHQ-9 Depression Total Score: 13 09/05/ 024 2:07 PM EDT documented as of this encounter Care Teams Gum Puller Relationship Specialty Start Date End Date Marley Tomlinson MD [address] [place] [address] PCP - General Family Medicine 10/24/21 Augustine magaña Louver Mortiser OperatorTake Off Worker 05/28/24 documented as of this encounter
== END 2025-03-16 17:11 | disposition home or self-care (01) ==
LOC: HO.ED 17:04
PROVIDERS: Physician Assistant Medical; Emergency Provider Emergency Medicine; PCP Family Medicine
DX: B34.9 Viral infection, unspecified (principal); R05.9 Cough, unspecified; Z03.818 Encounter for observation for suspected exposure to other biological agents ruled out; R06.02 Shortness of breath
CPT/HCPCS: 71046; 87502; 87635; 99282; 99283

== ENCOUNTER → 2025-03-16 14:31 | Outpatient (BNV) | payer MEDICAID, SELFPAY | PROVIDERS: PCP Family Medicine; Visit Provider Radiology Diagnostic Ultrasound | DX: R06.02 Shortness of breath (principal); Z95.828 Presence of other vascular implants and grafts | CPT/HCPCS: 71046 ==